=== PATIENT | female | born 1975 | race Caucasian/White ===

== ENCOUNTER 2020-11-05 11:41 | Outpatient (REF) | payer BC, SELFPAY ==
--- NOTE | ~2020-11-05 | XR_ITS ---
EXAMINATION: XR KNEE, LEFT CLINICAL INFORMATION: Pain and swelling of the left knee COMPARISON: None TECHNIQUE: Four views of the left knee. FINDINGS: No fracture or subluxation. Compartmental joint spaces are maintained. No definite joint effusion. Diffuse soft tissue swelling. XR/XR knee LT 3V IMPRESSION: Soft tissue swelling. No osseous abnormality.
== END 2020-11-05 11:42 | disposition home or self-care (01) ==
LOC: HO.XRAY 11:41
PROVIDERS: PCP Student in an Organized Health Care Education/Training Program; Visit Provider Student in an Organized Health Care Education/Training Program
DX: M25.562 Pain in left knee (principal); M25.462 Effusion, left knee
CPT/HCPCS: 73562

== ENCOUNTER → 2022-10-24 08:28 | Outpatient (BNVA) | payer BC, SELFPAY | PROVIDERS: PCP Family Medicine; Visit Provider Physician Assistant Surgical | DX: Z13.89 Encounter for screening for other disorder (principal) ==

== ENCOUNTER → 2022-10-31 08:10 | Outpatient (BNVA) | payer BC, SELFPAY | PROVIDERS: PCP Family Medicine; Visit Provider Surgery | DX: Z13.89 Encounter for screening for other disorder (principal) ==

== ENCOUNTER 2022-11-04 08:42 | Outpatient (REF) | payer OTHER, SELFPAY ==
--- NOTE | ~2022-11-04 | XR_ITS ---
EXAMINATION: XR CHEST CLINICAL INFORMATION: E66.01. Bariatric service evaluation. COMPARISON: None available. TECHNIQUE: 2 views of the chest were obtained. FINDINGS: Lungs clear. No hyperinflation, infiltrate, or effusion. The costophrenic sulci are well-defined. Heart size normal. The hilar and mediastinal contours are unremarkable. No acute bony abnormality. XR/XR chest 2V IMPRESSION: Unremarkable examination.
--- NOTE | 2022-11-04 08:59 | ECG_ITS ---
Test Reason : E66.01 Blood Pressure : / mmHG Vent. Rate : 067 BPM Atrial Rate : 067 BPM P-R Int : 156 ms QRS Dur : 078 ms QT Int : 380 ms P-R-T Axes : 099 022 043 degrees QTc Int : 401 ms Normal sinus rhythm Normal ECG No previous ECGs available Referred By: Mynor Howard Electronically Signed By:Erick Hernandez
[2022-11-04 09:17] LABS: MANUAL DIFF FLAG NO
[2022-11-04 09:31] LABS: Basophils Percent Auto 0.4 % (0-2); Eosinophils Absolute Auto 0.1 X10*3/uL (0.0-0.4); Hematocrit 40.8 % (37.0-47.0); Hemoglobin 13.5 g/dl (12.0-16.0); Imm Gran Abs Auto 0.02 X10*3/uL (0.00-0.03); Imm Gran Pct Auto 0.3 % (0.0-0.4); Lymphocytes Absolute Auto 2.6 X10*3/uL (1.2-4.9); Lymphocytes Percent Auto 36.9 % (20-40); Mean Corpuscular HGB Conc 33.1 g/dl (31.0-35.0); Mean Corpuscular Hemoglobin 27.6 pg (27.0-33.0); Mean Corpuscular Volume 83.3 fL (80.0-98.0); Mean Platelet Volume 10.9 fL (9.4-12.3); Monocytes Absolute Auto 0.4 X10*3/uL (0.1-1.2); Monocytes Percent Auto 6.3 % (2-11); Neutrophils Absolute Auto 3.8 x10*3/uL (2.0-8.3); Neutrophils Percent Auto 54.1 % (45-73); Platelet Count 230 X10*3/uL (160-400); Red Cell Distribution Width 14.2 % (11.0-16.0)
[2022-11-04 09:46] LABS: Estimated Average Glucose 117 mg/dL; Hemoglobin A1c % 5.7 %
[2022-11-04 09:59] LABS: Alanine Aminotransferase 22 U/L (0-31); Albumin Level 4.3 g/dL (3.5-5.0); Alkaline Phosphatase 62 U/L (39-117); Anion Gap 12 (12-20); Aspartate Amino Transferase 16 U/L (5-31); Bilirubin Total 1.3 mg/dL (0.0-1.0); Blood Urea Nitrogen 17 mg/dL (9-16); C Reactive Protein 0.26 mg/dL (< or = 0.50); Calcium 9.1 mg/dL (8.4-10.2); Carbon Dioxide 24 mmol/L (22-29); Chloride 109 mmol/L (96-108); Cholesterol 211 mg/dL; Estimated Glomerular Filt Rate > 60; Glucose Random 99 mg/dL (60-115); HDL Cholesterol 48 mg/dL; Iron 120 mcg/dL (30-160); LDL Cholesterol Calculated 138 mg/dl; Percent Iron Saturation 29 % (15-50); Potassium 4.4 mmol/L (3.3-5.1); Sodium 141 mmol/L (135-145); Total Iron Binding Capacity 416 mcg/dL (228-428); Total Protein 6.6 g/dL (6.5-8.0); Triglycerides 129 mg/dL; Unsaturated Iron Binding 296 ug/dL
[2022-11-04 10:28] LABS: Ferritin 31 ng/mL (10-250); Folate 14.3 ng/mL (> or = 4.0); Insulin 8 uU/mL (2-29); TSH reflex Free T4 1.08 uIU/mL (0.32-4.0); Vitamin B12 372 pg/mL (200-900); Vitamin D 25-OH Total 21.2 ng/mL (>30)
[2022-11-05 11:06] LABS: H Pylori Breath Test Positive (Negative)
[2022-11-07 21:49] LABS: Calcium (PTHI) 9.2 mg/dL (8.6-10.2); PTHI 46 pg/mL (16-77)
[2022-11-08 15:28] LABS: Zinc 71 mcg/dL (60-130)
[2022-11-10 23:44] LABS: Vitamin A 62 mcg/dL (38-98)
[2022-11-14 06:38] LABS: Vitamin B1 9 nmol/L (8-30)
== END 2022-11-04 08:43 | disposition home or self-care (01) ==
LOC: HO.LAB 08:42
PROVIDERS: PCP Family Medicine; Visit Provider Surgery
DX: E66.01 Morbid (severe) obesity due to excess calories (principal); E78.5 Hyperlipidemia, unspecified; Z20.2 Contact with and (suspected) exposure to infections with a predominantly sexual mode of transmission
CPT/HCPCS: 36415; 71046; 80053; 80061; 82306; 82607; 82728; 82746; 83013; 83036; 83525; 83540; 83970; 84425; 84443; 84590; 84630; 85025; 86140; 93005

== ENCOUNTER → 2022-11-21 09:00 | Outpatient (BNVA) | payer OTHER, SELFPAY | PROVIDERS: PCP Family Medicine; Visit Provider Counselor Mental Health | DX: E66.01 Morbid (severe) obesity due to excess calories (principal); Z71.3 Dietary counseling and surveillance | CPT/HCPCS: 97802 ==

== ENCOUNTER → 2022-11-28 08:12 | Outpatient (BNVA) | payer OTHER, SELFPAY | PROVIDERS: PCP Family Medicine; Visit Provider Surgery | DX: Z13.89 Encounter for screening for other disorder (principal) ==

== ENCOUNTER 2022-12-05 08:02 | Outpatient (REF) | payer OTHER, SELFPAY ==
[2022-12-10 14:11] LABS: H Pylori Breath Test Negative (Negative)
== END 2022-12-05 08:03 | disposition home or self-care (01) ==
LOC: HO.LNP 08:02
PROVIDERS: PCP Family Medicine; Visit Provider Physician Assistant Surgical
DX: Z01.818 Encounter for other preprocedural examination (principal)
CPT/HCPCS: 83013

== ENCOUNTER → 2022-12-09 14:08 | Outpatient (BNVA) | payer OTHER, SELFPAY | PROVIDERS: PCP Family Medicine; Visit Provider Surgery ==

== ENCOUNTER 2022-12-14 08:41 | Outpatient (REF) | payer OTHER, SELFPAY ==
--- NOTE | ~2022-12-14 | US_ITS ---
EXAMINATION: US COMPLETE ABDOMEN WITH LIVER ELASTOGRAPHY CLINICAL INFORMATION: Obesity COMPARISON: None available. TECHNIQUE: Real-time imaging of the abdominal viscera. Noninvasive ultrasound liver fibrosis assessment is performed using Irina ElastPQ point quantification shear wave elastography (2D-SWE) with a C5-2 MHz transducer. Multiple elastography samples are obtained. FINDINGS: PANCREAS: Normal. ABDOMINAL AORTA: The proximal, middle, and distal aortic segments are normal in caliber. INFERIOR VENA CAVA: Visualized portions are normal. LIVER: Normal. The liver demonstrates normal size, contour and echogenicity. No focal lesion or intrahepatic biliary duct dilatation. The right lobe measures 14 cm in length. The left lobe measures 10 cm in length. Portal flow is normal Shear wave liver elastography median stiffness is 1.5 m/s (reference: normal median stiffness is 1.3 m/s or less). IQR/median stiffness to assess sampling precision is 0.09 (reference: good quality data set is IQR/median stiffness of 0.15 or less). GALLBLADDER: Normal. The gallbladder is physiologically distended without evidence of stones, sludge, polyps, wall thickening or pericholecystic fluid. COMMON BILE DUCT: Normal in caliber measuring 0.3 cm in diameter. RIGHT KIDNEY: 7 x 5 x 5 mm echogenic density in the cortex of the mid to lower pole. 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 No hydronephrosis. No renal calculi. The kidney measures 11.6 cm in maximum dimension. LEFT KIDNEY: Normal. No hydronephrosis. No renal calculi or focal parenchymal lesions. The kidney measures 11.2 cm in maximum dimension. SPLEEN: Normal. The spleen measures 10 cm in maximum dimension. FREE FLUID: None. US/US abdomen comp w elastography IMPRESSION: 1. Impression: Normal-appearing liver. 6 mm echogenic lesion in the lower pole the right kidney. 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 Confirmation with CT or MRI of the kidneys should be considered. 2. Liver elastography: Adequate liver sampling. In the absence of other known clinical signs, rules out compensated advanced chronic liver disease. REFERENCE: Society of Radiologists in Ultrasound Liver Stiffness Thresholds (2020): LIVER STIFFNESS THRESHOLDS: *Liver Stiffness equal or less than 1.3 m/s: High probability of being normal. *Liver Stiffness less than 1.7 m/s: In the absence of other known clinical signs, rules out compensated advanced chronic liver disease. *Liver Stiffness 1.7-2.1 m/s: Suggestive of compensated advanced chronic liver disease but need further test for confirmation. *Liver Stiffness over 2.1 m/s: Rules in compensated advanced chronic liver disease. *Liver Stiffness over 2.4 m/s: Suggestive of clinically significant portal hypertension. QUALITY OF DATA SET: *IQR/Median value equal or less than 0.15 implies a quality data set. *IQR/Median value over 0.15 implies a poor quality data set. SIGNIFICANT CHANGE FROM PRIOR EXAM: Significant change if liver stiffness measurement is 10% or greater from prior exam. OTHER CONSIDERATIONS: The stage of liver fibrosis may be overestimated in the setting of acute hepatitis, liver inflammation, elevated liver function tests, hepatic vascular congestion, obstructive cholestasis, non-fasting state, and infiltrative diseases such as amyloidosis and lymphoma. In some patients with NAFLD, the liver stiffness thresholds for compensated advanced chronic liver disease may be lower. In causes other than viral hepatitis and NAFLD, liver stiffness thresholds are not well established.
--- NOTE | ~2022-12-14 | FL_ITS ---
EXAMINATION: XR FLUOROSCOPY UPPER GI WITH AIR CLINICAL INFORMATION: Morbid obesity COMPARISON: None available. TECHNIQUE: Air-contrast upper GI examination FINDINGS: There is normal elevation of the soft palate while saying 'candy'. There is normal apposition of the focal cords while saying 'E'. Patient swallowed thin and thick barium and half-inch diameter barium tablet without difficulty. There is no evidence of nasopharyngeal reflux or tracheal aspiration. There is normal esophageal motility. No persistent stricture or mucosal abnormality within the esophagus is seen. No hiatal hernia. No gastroesophageal reflux including with water siphon test. The stomach demonstrates normal distensibility without abnormal mass or ulceration. There was no delay in gastric emptying. The duodenal bulb and sweep appeared unremarkable. FLUOROSCOPY TIME: 1.5 minutes DOSE AREA PRODUCT: 13.829 Gy-cm2 (feliciano-centimeter squared) FL/FL upper GI w air IMPRESSION: Normal air-contrast upper GI examination.
== END 2022-12-14 08:42 | disposition home or self-care (01) ==
LOC: HO.US 08:41
PROVIDERS: PCP Family Medicine; Visit Provider Surgery
DX: Z01.818 Encounter for other preprocedural examination (principal); E66.01 Morbid (severe) obesity due to excess calories; K21.9 Gastro-esophageal reflux disease without esophagitis; E78.5 Hyperlipidemia, unspecified
CPT/HCPCS: 74246; 76705; 76981

== ENCOUNTER 2022-12-16 09:40 | Inpatient (IN) | payer OTHER, SELFPAY ==
[2022-12-10 08:58] LABS: MANUAL DIFF FLAG NO
[2022-12-10 10:33] LABS: Basophils Percent Auto 0.7 % (0-2); Eosinophils Absolute Auto 0.1 X10*3/uL (0.0-0.4); Hematocrit 39.3 % (37.0-47.0); Hemoglobin 12.7 g/dl (12.0-16.0); Imm Gran Abs Auto 0.02 X10*3/uL (0.00-0.03); Imm Gran Pct Auto 0.3 % (0.0-0.4); Lymphocytes Absolute Auto 2.5 X10*3/uL (1.2-4.9); Lymphocytes Percent Auto 41.9 % (20-40); Mean Corpuscular HGB Conc 32.3 g/dl (31.0-35.0); Mean Corpuscular Hemoglobin 27.5 pg (27.0-33.0); Mean Corpuscular Volume 85.2 fL (80.0-98.0); Mean Platelet Volume 11.8 fL (9.4-12.3); Monocytes Absolute Auto 0.4 X10*3/uL (0.1-1.2); Monocytes Percent Auto 6.8 % (2-11); Neutrophils Absolute Auto 2.9 x10*3/uL (2.0-8.3); Neutrophils Percent Auto 48.3 % (45-73); Platelet Count 231 X10*3/uL (160-400); Red Blood Count 4.61 X10*6/uL (4.20-5.50); Red Cell Distribution Width 14.2 % (11.0-16.0); White Blood Count 5.9 X10*3/uL (4.8-10.8)
[2022-12-10 10:38] LABS: Prothrombin Time 11.1 SEC (10.0-13.1)
[2022-12-10 10:39] LABS: Estimated Average Glucose 111 mg/dL; Hemoglobin A1c % 5.5 %
[2022-12-10 10:40] LABS: Partial Thromboplastin Time 32.8 SEC (26.0-36.4)
[2022-12-10 11:10] LABS: Alanine Aminotransferase 21 U/L (0-31); Albumin Level 4.1 g/dL (3.5-5.0); Alkaline Phosphatase 62 U/L (39-117); Anion Gap 12 (12-20); Aspartate Amino Transferase 18 U/L (5-31); Bilirubin Total 0.9 mg/dL (0.0-1.0); Blood Urea Nitrogen 15 mg/dL (9-16); C Reactive Protein 0.24 mg/dL (< or = 0.50); Calcium 9.1 mg/dL (8.4-10.2); Carbon Dioxide 22 mmol/L (22-29); Chloride 113 mmol/L (96-108); Cholesterol 141 mg/dL; Estimated Glomerular Filt Rate > 60; Glucose Random 94 mg/dL (60-115); HDL Cholesterol 35 mg/dL; LDL Cholesterol Calculated 92 mg/dl; Sodium 143 mmol/L (135-145); Total Protein 6.2 g/dL (6.5-8.0); Triglycerides 70 mg/dL
[2022-12-10 11:28] LABS: Insulin 6 uU/mL (2-29); TSH reflex Free T4 0.81 uIU/mL (0.32-4.0)
--- NOTE | 2022-12-10 13:09 | MHC.SHP ---
Pre-Procedural Eval Section A Date of Service: 12/10/22 The patient is an INPATIENT: Yes The History & Physical has been completed within 30 days and I have reviewed it.: Yes Section B Chief Complaint: obesity Relevant Family History (Specify if Yes): No Relevant Social History: None Present Medications: None Medical History: No relevant PMH History of Previous Operations: No relevant previous surgery Allergies: Allergies Allergy/AdvReac Type Severity Reaction Status Date / Time No Known Allergies Allergy Verified 12/05/22 08:24 Review of Systems Sugical H&P ROS: Negative: Constitution, Cardiovascular, Respiratory, Neurological, Psychiatric, Hem-Onc, Allergic/Immunologic, Gastrointestinal, Genitourinary, Musculoskeletal, Integumentary, Endocrine and Eyes/Ears/Nose/Throat Exam Surgical H&P Exam: Normal: HEENT, Normal: Heart, Normal: Lungs, Normal: Extremities, Normal: Abdomen, Normal: Skin and Normal: Neurological Plan Diagnosis/Plan: Unchanged I have reviewed the history and physical and performed a pertinent physical examination on my patient. No changes have occurred unless specified. Time Spent With Patient Time: Total time managing care of this patient today ____ minutes.
[2022-12-12 09:29] VITALS: BMI 38.6
--- NOTE | 2022-12-15 09:27 | HO.ANESPROP2 ---
Documented by User: Chloe Ang NP 12/15/22 09:29 HPI - Anesthesia Eval Consult details Narrative: 47yo F for Gastrectomy Sleeve,EGD,poss diaphragmatic hernia,poss ventral hernia,poss open, PMFSH Active Problems Active Problems: All Active Problems (Updated 12/12/22 @ 09:35 by Maria C Molina RN) Vitamin D deficiency (Acute) Vitamin B12 deficiency (Acute) H. pylori infection (Acute) Obesity (Acute) BMI 39.0-39.9,adult (Acute) Back pain (Acute) Hyperlipidemia (Acute) Morbid obesity (Acute) Past Medical History Medical History Back pain Depression GERD (gastroesophageal reflux disease) History of positive PPD Hyperlipidemia Morbid obesity PTSD (post-traumatic stress disorder) Family History Family History Sister Hypertension Obesity Daughter No problems noted. Son No problems noted. Surgical History Surgical History History of surgery on lower extremity Hx of section Hx of oral surgery Social History 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 primary eye care professional to a significant other at home: Yes (minor children) Do you presently have visiting nurse or other home services: No Alcohol intake: current Alcohol intake frequency: does not drink Patient Tobacco Use Status: Former Tobacco user Quit Date: 2011 Tobacco use type: Cigarette Use of substances other than those prescribed or required for medical reasons: Yes Substance Use Type Other:: occasional edibles-advised to refrain use pre-op Have you been hit, kicked, punched, or otherwise hurt by someone within the past year? If so, by whom?: No Are you DNR?: No Advance Directives: No Advance Directives Information Provided: Yes (brochure mailed) Advance Directives on File: No Recently lost weight without trying: No Eating poorly because of decreased appetite: No Nutrition Risks: No Nutritional Risk Patient : No FDLMP: 12/05/22 : No Poor oral hygiene: No Meds Allergies Allergy/AdvReac Type Severity Reaction Status Date / Time No Known Allergies Allergy Verified 12/16/22 09:49 Home Medications Medication Instructions Recorded Confirmed Last Taken Type atorvastatin 20 mg tablet 20 mg PO DAILY 10/24/22 12/12/22 Unknown History Exam Exam Date and Time: December 15, 2022 0962 Height,Weight and Vital Signs: Height 5 ft 5 in Weight 105.233 kg Pertinent Lab Results Pertinent Lab Results: Laboratory Tests 12/10/22 12/10/22 12/10/22 08:49 08:56 08:56 WBC 5.9 RBC 4.61 Hgb 12.7 Hct 39.3 MCV 85.2 MCH 27.5 MCHC 32.3 RDW 14.2 Plt Count 231 MPV 11.8 Immature Gran % (Auto) 0.3 Neut % (Auto) 48.3 Lymph % (Auto) 41.9 H Hutchinson % (Auto) 6.8 Eos % (Auto) 2.0 Baso % (Auto) 0.7 Lymph # (Auto) 2.5 Hutchinson # (Auto) 0.4 Eos # (Auto) 0.1 Baso # (Auto) 0.0 Abs Immat Gran (auto) 0.02 Absolute Neuts (auto) 2.9 Absolute Nucleated RBC 0.000 Nucleated RBC % (auto) 0.0 PT 11.1 INR 1.0 APTT 32.8 Sodium Potassium Chloride Carbon Dioxide Anion Gap BUN Creatinine Estim Creat Clear Calc Estimated GFR Random Glucose Estimat Average Glucose Hemoglobin A1c % Insulin Level Calcium Total Bilirubin AST ALT Alkaline Phosphatase C-Reactive Protein Total Protein Albumin Triglycerides Cholesterol LDL Cholesterol, Calc HDL Cholesterol TSH Blood Type O Positive Antibody Screen NEGATIVE 12/10/22 12/10/22 08:56 08:56 WBC RBC Hgb Hct MCV MCH MCHC RDW Plt Count MPV Immature Gran % (Auto) Neut % (Auto) Lymph % (Auto) Hutchinson % (Auto) Eos % (Auto) Baso % (Auto) Lymph # (Auto) Hutchinson # (Auto) Eos # (Auto) Baso # (Auto) Abs Immat Gran (auto) Absolute Neuts (auto) Absolute Nucleated RBC Nucleated RBC % (auto) PT INR APTT Sodium 143 Potassium 4.0 Chloride 113 H Carbon Dioxide 22 Anion Gap 12 BUN 15 Creatinine 0.75 Estim Creat Clear Calc TNP Estimated GFR > 60 Random Glucose 94 Estimat Average Glucose 111 Hemoglobin A1c % 5.5 Insulin Level 6 Calcium 9.1 Total Bilirubin 0.9 AST 18 ALT 21 Alkaline Phosphatase 62 C-Reactive Protein 0.24 Total Protein 6.2 L Albumin 4.1 Triglycerides 70 Cholesterol 141 LDL Cholesterol, Calc 92 HDL Cholesterol 35 TSH 0.81 Blood Type Antibody Screen Narrative Narrative: EKG 10/2022 Vent. Rate : 067 BPM ? ? Atrial Rate : 067 BPM ?? P-R Int : 156 ms? QRS Dur : 078 ms ? ? QT Int : 380 ms ? ? ? P-R-T Axes : 099 022 043 degrees ?? QTc Int : 401 ms ? Normal sinus rhythm Normal ECG No previous ECGs available Assessment and Plan Assessment Anesthesia Assessment: Chart Reviewed Documented by User: Theresa Michael MD 12/16/22 12:13 PMFSH Past Medical History Medical History Back pain Depression GERD (gastroesophageal reflux disease) History of positive PPD Hyperlipidemia Morbid obesity PTSD (post-traumatic stress disorder) Family History Family History Sister Hypertension Obesity Daughter No problems noted. Son No problems noted. Surgical History Surgical History History of surgery on lower extremity Hx of section Hx of oral surgery History of Problems with Anesthesia: No Social History 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 primary eye care professional to a significant other at home: Yes (minor children) Do you presently have visiting nurse or other home services: No Alcohol intake: current Alcohol intake frequency: does not drink Patient Tobacco Use Status: Former Tobacco user Quit Date: 2011 Tobacco use type: Cigarette Use of substances other than those prescribed or required for medical reasons: Yes Substance Use Type Other:: occasional edibles-advised to refrain use pre-op Have you been hit, kicked, punched, or otherwise hurt by someone within the past year? If so, by whom?: No Are you DNR?: No Advance Directives: No Advance Directives Information Provided: Yes (brochure mailed) Advance Directives on File: No Recently lost weight without trying: No Eating poorly because of decreased appetite: No Nutrition Risks: No Nutritional Risk Patient : No FDLMP: 12/05/22 : No Poor oral hygiene: No Meds Allergies Allergy/AdvReac Type Severity Reaction Status Date / Time No Known Allergies Allergy Verified 12/16/22 09:49 Home Medications Medication Instructions Recorded Confirmed Last Taken Type atorvastatin 20 mg tablet 20 mg PO DAILY 10/24/22 12/12/22 Unknown History Exam Airway Mallampati Class: II TM Dist: >3cm Neck ROM: Full Loose/Missing/Broken Teeth: No Heart: RRR Lungs: CTA Assessment and Plan Assessment Anesthesia Assessment: Anesthesia Plan Discussed Final Anesthetic Review History of Problems with Anesthesia: No NPO: Yes ASA Class: II Final Preanesthetic Review: Meds/Allgs Chart Reviewed, Consent Obtained/Reviewed and Anes Risks/Benef Reviewed Patient Risk: Low Procedure Risk: Intermediate Anesthetic Plan Anesthetic Plan: GA Disposition: Standard PACU
[2022-12-15 13:40] LABS: COVID-19 Test Negative (Negative); IDNOW Serial# BCCEAD1C
[2022-12-16] VITALS (10 sets, daily range): BP systolic 102–136; BP diastolic 62–89; PULSE 59–86; RESP 15–18; TEMP 35.8–37.2; O2SAT 96–100
[2022-12-16] MEDS: Lactated Ringers 1,000 ML 999 ML IV (10:28)
[2022-12-16] MEDS: Aprepitant 32 MG/4.4 ML VIAL IVPUSH (10:52)
[2022-12-16 11:03] LABS: UPreg QC Valid YES; Urine Pregnancy NEGATIVE (NEGATIVE)
--- NOTE | 2022-12-16 11:21 | P.BOP_ITS ---
Brief Operative Note Date of Service: 12/16/22 Pre-op diagnosis: Severe obesity with comorbidities (see below) Post-op diagnosis: same Procedure: INITIAL PATIENT BMI ON PRESENTATION AT OUR OFFICE: 40.7 kg/m2 LAST BMI BEFORE SURGERY: 39.2 kg/m2 COMORBIDITIES: hyperlipidemia, back pain, depression, PTSD, GERD, liver fibrosis ?The patient presented to the Weight Management Program with significant obesity that was negatively impacting the patient's comorbidities as listed above.? The program is a phased program with a special focus on preoperative medical weight management to promote substantial weight loss and prepare the patients for the second phase of the program: bariatric surgery. The patient participated in an intensive weekly lifestyle ?intervention and exercise program during which the patient ?has lost between the initial office visit and the last preoperative visit 21.2lbs, or 8.66% of initial actual body weight. It was deemed appropriate for the patient to now have bariatric surgery. In light of the current Covid-19 pandemic and the well documented strong association of obesity and increased risk of worse outcomes if infected with Covid-19 (REFERENCES: https://pubmed.ncbi.nlm.nih.gov/47916283/ ,? https://pubmed.ncbi.nlm.nih.gov/74648039/ ), any delay in undergoing bariatric surgery may lead to the patient's worsening health condition and increased?risk of more severe Covid-19 disease if infected. In addition a recent?study from [facility] published in [employer] on 07/26/2021 ([email or web address]) found that, among patients with obesity, substantial weight loss achieved with surgery was associated with improved outcomes of COVID-19 infection. The findings suggest that obesity can be a modifiable risk factor for the severity of COVID-19 infection. In addition, the patient met the BMI-criteria for bariatric surgery based on the BMI on initial presentation. The patient should not be penalized for achieving such weight loss because ?it is not sustainable long-term without surgical intervention and it was achieved in preparation for bariatric surgery ?under my direction and based on my published research ([email or web address]).[email or web address] and? https://www.soard.org/article/[email or web address](59)67226-X/pdf ) ?that a 10% preoperative weight loss improves long-term weight loss after surgery and reduces perioperative complications.? Insurance carriers such as [facility] have endorsed my recommendations ?and have included in their policies criteria to include a 10% preoperative weight loss requirement. PROCEDURE: Esophago-gastroscopy, laparoscopic sleeve gastrectomy and laparoscopic gastropexy INDICATIONS: This is a 47 year-old female who was electively scheduled for laparoscopic, possibly open sleeve gastrectomy. The risks and complications of the procedure were discussed with the patient in advance, particularly the possibility of ; pulmonary embolism; staple line leak; bleeding; GERD; cardiac, pulmonary, or renal complications; as well as long-term problems such as insufficient weight loss, vitamin deficiency, strictures, or ulcers. The patient understood all the risks, and was in agreement to proceed with surgery. DESCRIPTION OF PROCEDURE: After informed consent was obtained from the patient, the patient was given preoperative antibiotics, and was transferred to the operating room. After successful induction of general anesthesia, pneumatic compression devices were placed on both lower extremities. An upper endoscopy was performed next. The oropharynx and esophagus appeared to be within normal limits. There was no diaphragmatic hernia present consistent with the findings of the preoperative upper GI. The stomach was entered. Then after all fluid and air were suctioned and the stomach was fully decompressed, the scope was withdrawn and secured in the mid esophagus. The patient was then prepped and draped in the usual sterile manner, and abdominal access was established at the right upper quadrant with the Walt technique. A 12 mm blunt port was inserted, and the abdomen was insufflated with CO2 to a pressure of 15 mmHg. Under direct visualization, additional ports were placed, specifically two 5 mm Versi-step ports to the left upper quadrant, and a 5 mm Versi-Step port to the right upper quadrant. 1% lidocaine plain was used to infiltrate all port sites as well as all fascia defects. Following that, the patient was placed in a steep reverse Trendelenburg position. An additional 5 mm port was placed to the right flank for the Mediflex retractor that was used to retract the left lobe of the liver. The gastro-esophageal fat pad was opened with the ultrasonic device (Intellicyt) and the anterior esophagus and hiatus were exposed. The angle of His was opened with the ultrasonic device the fundus of the stomach from any diaphragmatic and splenic attachments. I then opened the gastrocolic ligament between the transverse colon and the greater curvature of the stomach with the ultrasonic device to enter the lesser sac and facilitate the ligation of the short gastric vessels. I started at a mid-point along the greater curvature and using the Thunderbeat, all short gastric vessels were divided all the way to the angle of His until the left carlos a was completely dissected at its entirety. I then divided the gastro-colic ligament distally to a distance of about 3-4 cm proximal to the pylorus. The stomach was then divided transversely with three Endo ANAYA-45 purple, and three ANAYA-60 articulating purple loads using the moka5 stapler and loads. Every effort was made that the gastric sleeve had a tubular shape and an even caliber throughout. Once the sleeve resection was completed, the staple line of the gastric sleeve was reinforced with Hemoclips. The resected stomach was retrieved without difficulty from the Walt port. A gastropexy was then performed in order to prevent postoperative GERD and partial gastric volvulus. Several interrupted 2.0 Surgidac sutures were placed between the sleeve's staple line and the previously divided greater omentum and gastro-colic ligament using the Endo-Stitch device. ?An upper endoscopy was performed. There was no narrowing at the GE junction. The scope was easily advanced all the way to the pylorus which was clearly visualized. There was no narrowing anywhere and the sleeve's caliber was even throughout. The sleeve's staple line was inspected and there was no evidence of ischemia, bleeding or dehiscence. At that point the gastroscope was withdrawn from the patient?s mouth while we were decompressing the bowel and the stomach from any remaining air. I looked into the lesser sac to see how the sleeve was situating and it was situating well. There was no bleeding from the staple line, spleen, or short gastric vessels. The Mediflex retractor was removed, and the undersurface of the liver was inspected and there was no bleeding. The patient was placed in supine position. I closed the fascial defect of the 12 mm port site with a figure of eight #1 Polysorb suture. Then 30cc Ropivacaine plain with 10 mg of Dexamethasone were used to infiltrate the fascial closure as well as all skin incisions. A total of 7ml Zynrelef was applied in the Walt wound. At this point, the abdomen was deflated, all ports were removed under direct vision, and no bleeding was noted from any of the port sites. The skin incisions were irrigated with saline and were closed with 4-0 absorbable monofilament sutures. Steri-Strips and OpSites were used to cover all incisions. The patient was extubated and was transferred in stable condition to the recovery room for further care. I was present and performed all arvizu parts of the procedure. Ms. Boo was the elder assistant. There were no residents to assist with this case. Marko Howard MD, PhD, FACS Surgeon: Mynor Howard MD Anesthesia: GETA, local and other (TAP block and 7ml Zynrelef) Was an Anthropological Linguist used for this Procedure?: Yes Anthropological Linguist: Margarita Boo Estimated blood loss (mL): 10 IV fluids (mL): 2,200 Urine output (mL): 0 (No Jones to record output) Pathology: other (Stomach) Condition: stable Disposition: PACU
--- NOTE | 2022-12-16 11:24 | PM.PNGS ---
Subjective Subjective Date of Service: 12/16/22 Interval history: Feels well. Mild incisional pain. She is tolerating phase 1 bariatric diet Physical Exam Vital Signs: Vital Signs: Last Vital Signs Temp 97.9 F 12/16/22 09:57 Pulse 75 12/16/22 09:57 Resp 15 12/16/22 09:57 BP 129/70 12/16/22 09:57 Pulse Ox 96 12/16/22 09:57 O2 Del Method Room Air 12/16/22 09:57 BMI result Body Mass Index 38.6 Objective Data Active Medications Lactated Ringer's (Lr) 1,000 mls @ 100 mls/hr IVCONT .Q10H CRISTINA Lactated Ringer's (Lr) 1,000 mls @ 999 mls/hr IV .Q1H1M CRISTINA Stop: 12/16/22 11:45 Last Admin: 12/16/22 10:28 Dose: 999 mls/hr Documented By: LINDA Labs 12/10/22 08:56 12/10/22 08:56 Labs: Laboratory Results - last 24 hr 12/15/22 12/16/22 13:10 09:50 Urine Test NEGATIVE COVID-19 (PATSY) Negative COVID-19 Clin Com See Note Procedures Date of Service Date of Service: 12/16/22 Progress Note: A&P Assessment and plan (1) Obesity: Status: Acute Assessment and Plan: s/p laparoscopic sleeve gastrectomy, and gastropexy Doing well Will check am labs and if OK the patient will be discharged home (2) BMI 39.0-39.9,adult: Status: Acute (3) Hyperlipidemia: Status: Acute (4) Back pain: Status: Acute (5) Depression: Status: Acute (6) PTSD (post-traumatic stress disorder): Status: Acute (7) Liver fibrosis: Status: Acute (8) GERD (gastroesophageal reflux disease): Status: Acute (9) S/P laparoscopic sleeve gastrectomy: Status: Acute Time Spent With Patient Time: Total time managing care of this patient today ____ minutes. Quality Stroke Does the patient have a stroke diagnosis?: No VTE Prior VTE?: No VTE Risk Level:: Surgical - moderate VTE Device Contraindication: N/A - Device Ordered VTE Drug Contraindication: Treatment Not Indicated
--- NOTE | 2022-12-16 11:26 | PM.DS ---
DS: Providers Provider Date of Service: 12/17/22 Date of admission: 12/16/22 09:40 Primary care physician: Kathryn Mckinney MD DS: Diagnosis Discharge Diagnosis (1) Obesity: Status: Inactive (2) BMI 39.0-39.9,adult: Status: Inactive (3) Hyperlipidemia: Status: Acute (4) Back pain: Status: Inactive (5) Depression: Status: Acute (6) PTSD (post-traumatic stress disorder): Status: Acute (7) Liver fibrosis: Status: Acute (8) GERD (gastroesophageal reflux disease): Status: Acute DS: Summary Hospital Course Hospital Course: ADMITTING DIAGNOSIS: morbid obesity, hyperlipidemia DISCHARGE DIAGNOSIS: same, s/p laparoscopic sleeve gastrectomy PAST SURGICAL HISTORY: section PROCEDURE: upper endoscopy, laparoscopic sleeve gastrectomy DISCHARGE SUMMARY: History of Present Illness: The patient is a 47 year-old woman with a BMI of 38.6 kg/m2 and associated co-morbidities as described above. The patient had extensive work-up, lost 9.4 lbs preoperatively and was electively scheduled for laparoscopic, possible open sleeve gastrectomy and gastropexy. Risks and complications of the surgery were discussed with the patient in advance, particularly the possibility of , pulmonary embolism, anastomotic leak, bleeding, bowel injury, GERD, cardiac, renal or pulmonary complications. The patient understood all the risks and was in agreement with the surgical plan. Hospital Course: The patient underwent an uneventful laparoscopic sleeve gastrectomy with gastropexy on the day of admission. Postoperatively, the patient was transferred to the surgical floor. The patient received IV Acetaminophen and IV dilaudid for pain control. Patient was started on bariatric phase 1 diet POD #0. On postoperative day one, the patient was feeling well without nausea, vomiting, fevers, or tachycardia. The patient had some mild incisional pain and the abdomen was soft. On the morning of postoperative day one, the patient was continued on 1 ounce of water or ice every half hour. During the day, the patient did fairly well, having some incisional pain, but able to ambulate adequately and to tolerate liquids well. Since the patient is doing well, we decided that the patient was ready to be discharged. The patient was given instructions to follow-up with me next week and to call my office for any fever over 101, persistent abdominal pain, nausea, vomiting, GERD, symptoms of DVT such as calf tenderness, or leg swelling, or pulmonary embolism such as chest pain or shortness of breath. The patient was also instructed to drink 40-60 ounces of liquids per day using the 1-ounce cups. The patient had been given prescriptions for Tylenol for pain, Zofran prn for nausea, and pantoprazole and carafate previously. The patient was encouraged to ambulate and use the incentive spirometer. The patient was allowed to shower, but no baths, and encouraged to stay active at home. All of these instructions were given to the patient personally. All questions were answered and the patient understood all instructions, the instructions were also given to the patient in print. Time Spent with Patient Time attestation: Total time managing care of this patient today ____ minutes. Discharge coordination time: Less than 30 minutes Quality: Safe Use of Opioids Does Pt have an Active Cancer Diagnosis on the Problem List?: No Quality: Stroke Does the patient have a stroke diagnosis?: No Physical Exam Vital Signs: Vital Signs: Last Vital Signs Temp 97.9 F 12/16/22 09:57 Pulse 75 12/16/22 09:57 Resp 15 12/16/22 09:57 BP 129/70 12/16/22 09:57 Pulse Ox 96 12/16/22 09:57 O2 Del Method Room Air 12/16/22 09:57 BMI result Body Mass Index 38.6 DS: Data Data Completed and Pending Labs on day of discharge: Laboratory Results - last 24 hr 12/15/22 12/16/22 13:10 09:50 Urine Test NEGATIVE COVID-19 (PATSY) Negative COVID-19 Clin Com See Note Discharge Plan Discharge Anticipated Discharge Date/Time: 12/17/22 10:24 Patient Disposition: Home, Self-Care Discharge Diagnosis: s/p sleeve gastrectomy Referrals: Kathryn Mckinney MD [Primary Care Provider] - 1 Week Discharge Medications: Continued atorvastatin 20 mg tablet 20 mg PO DAILY pantoprazole 40 mg tablet,delayed release (DR/EC) 40 mg PO DAILY Qty: 30 2RF sucralfate 100 mg/mL suspension 10 ml PO BID Qty: 400 2RF ondansetron 4 mg tablet,disintegrating 4 mg PO Q12H Qty: 20 0RF Rx Instructions: Only take one every 12 hours as needed if you have nausea Discontinued cholecalciferol (vitamin D3) 125 mcg (5,000 unit) capsule 125 mcg PO DAILY Qty: 30 2RF mecobalamin (vitamin B12) 1,000 mcg tablet,disintegrating 1,000 mcg sublingual DAILY Qty: 30 2RF Rx Instructions: place tablet under tongue and allow to dissolve for at least30 secs before swallowing Discharge Orders: Discharge Order (Routine); Ordered 12/17/22 Ordered By: Katie Eden Activity on Discharge: No heavy lifting Stand Alone Forms: Patient Portal Discharge page Care Plan Goals: weight loss Health Concerns: morbid obeisty Plan of Treatment: No tub baths, sex or returning to work until discussed at first post op appointment. No exercise, alcohol, tobacco or illegal drug use. Continue to use incentive spirometer hourly while awake. Walk in home for 5- 10 minutes every 2 hours during the first week. Continue phase 1 diet today and start phase 2 diet tomorrow morning. Follow all instructions in the bariatric handbook and call with any questions. 1. Please call your doctor or come back to the emergency room should any new symptoms arise. 2. You will receive a courtesy call from [facility] 24-48 hours after discharge. 3. Activity: abstain from alcohol, practice limited stair climbing, no bending, no driving, no exercise, no illicit substances, no lifting, no sex, no tub bath, no work. 4. Diet: continue as discussed with bariatric team.. 5. Dressing Change/Wound Care: Do not change or remove surgical dressings unless they are wet or soiled. 6. Call your doctor if: - Your temperature exceeds 101.5 F - You experience excessive pain or swelling - You have an unexpected reaction to medication - You have excessive bleeding - You experience continued vomiting/nausea - Your incision begins to separate - Your incision shows signs of infection such as increased redness, swelling, excessive pain, heat, or drainage (light blood or clear fluid is normal) 7. General instructions: No lifting greater than 5 lbs for the next 4 weeks[address] driving within 24 hours of taking narcotic pain medications. If you do not move your bowels in the next 2 days, please take milk of magnesia over the counter. Please follow the post op diet and do not advance your diet until you are seen in the office in about 2 weeks. Please walk around your home every hour or two to prevent blood clots from forming in your legs. You do not need to wake from sleeping to walk. Please sleep in a bed or couch to prevent kinking at the hips and knees. 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 You may shower, no hot tubs, baths or swimming pools. Please call the office with any questions or concerns such as increasing abdominal pain, fever, chills, shortness of breath, chest pain, leg pain or swelling, or redness or drainage from your incisions. Do not hesitate to contact the office with any questions at . The patient's medical history has been reviewed and they are considered low risk for post op DVT and therefore DVT prophylaxis is not considered necessary. Travel after surgery was reviewed. The patient has not disclosed any travel plans during the first 30 days after surgery and they have been advised that within the first 30 days after surgery any bus, plane, train or car travel over 2 hours in duration is contraindicated due to the possibility of developing blood clots from immobility. Any travel, needs to include periods of ambulation of 10 minutes in duration every 2 hours. The patient was instructed to discuss any plans for travel during this period with their bariatric surgeon. Assessment: marcos post op sleeve gastrectomy Discharge Date/Time: 12/17/22 11:30
[2022-12-16 14:25] LABS: Hematocrit 38.8 % (37.0-47.0); Hemoglobin 12.6 g/dl (12.0-16.0)
[2022-12-16 14:38] LABS: Anion Gap 20 (12-20); Blood Urea Nitrogen 12 mg/dL (9-16); Carbon Dioxide 19 mmol/L (22-29); Chloride 108 mmol/L (96-108); Creatinine Clr Calc Pharmacy 114.1; Estimated Glomerular Filt Rate > 60; Glucose Random 82 mg/dL (60-115); Potassium 3.7 mmol/L (3.3-5.1); Sodium 143 mmol/L (135-145)
[2022-12-16] MEDS: Lactated Ringers 1,000 ML 100 ML IVCONT (15:29)
[2022-12-16] MEDS: Famotidine/PF 20 MG/2 ML VIAL IVPUSH ×2 (15:58→21:40)
[2022-12-16] MEDS: Acetaminophen 1,000 MG/100 ML PIGGYBACK 400 MG IV (17:40)
[2022-12-16] MEDS: ceFAZolin Sodium/Dextrose,Iso 2 GM/50 ML PIGGYBACK IV (18:08)
[2022-12-16] MEDS: HYDROmorphone HCl 0.5 MG/0.5 ML SYRINGE 0.25 MG IVPUSH (21:39)
--- NOTE | 2022-12-17 01:20 | PC.NURSE ---
patient stacey diet, pain well controlled, ambulating in hallway around 0100. Abd dsg dry and intact with abdominal binder in place.
[2022-12-17] MEDS: Lactated Ringers 1,000 ML 100 ML IVCONT (01:57)
[2022-12-17 03:53] VITALS: BP 98/53; PULSE 63; RESP 16; TEMP 36; O2SAT 93
[2022-12-17] MEDS: Acetaminophen 1,000 MG/100 ML PIGGYBACK 400 MG IV (04:24)
[2022-12-17 06:32] LABS: MANUAL DIFF FLAG NO
[2022-12-17 06:36] LABS: Basophils Percent Auto 0.1 % (0-2); Imm Gran Abs Auto 0.03 X10*3/uL (0.00-0.03); Imm Gran Pct Auto 0.4 % (0.0-0.4); Lymphocytes Absolute Auto 1.2 X10*3/uL (1.2-4.9); Mean Corpuscular HGB Conc 32.4 g/dl (31.0-35.0); Mean Corpuscular Hemoglobin 27.2 pg (27.0-33.0); Mean Corpuscular Volume 83.9 fL (80.0-98.0); Mean Platelet Volume 12.1 fL (9.4-12.3); Monocytes Absolute Auto 0.3 X10*3/uL (0.1-1.2); Monocytes Percent Auto 4.4 % (2-11); Neutrophils Absolute Auto 5.5 x10*3/uL (2.0-8.3); Neutrophils Percent Auto 78.1 % (45-73); Platelet Count 214 X10*3/uL (160-400); Red Blood Count 4.41 X10*6/uL (4.20-5.50); White Blood Count 7.1 X10*3/uL (4.8-10.8)
[2022-12-17 06:56] LABS: Anion Gap 22 (12-20); Blood Urea Nitrogen 11 mg/dL (9-16); Calcium 8.7 mg/dL (8.4-10.2); Carbon Dioxide 14 mmol/L (22-29); Chloride 108 mmol/L (96-108); Creatinine Clr Calc Pharmacy 105.6; Estimated Glomerular Filt Rate > 60; Glucose Random 132 mg/dL (60-115); Potassium 4.4 mmol/L (3.3-5.1); Sodium 140 mmol/L (135-145)
[2022-12-17] MEDS: Famotidine/PF 20 MG/2 ML VIAL IVPUSH (07:50)
[2022-12-17] MEDS: 0.9 % Sodium Chloride Flush 3 ML SYRINGE IVFLUSH (07:50)
[2022-12-17 08:00] VITALS: BP 111/62; PULSE 57; RESP 18; TEMP 36.6; O2SAT 98
--- NOTE | 2022-12-17 09:30 | MHC.CM.PN ---
MD order for Patient home, self care prior to CM interview. CM acknowledge MD order for patient's D/C order to home, self care.
[2022-12-17 11:13] VITALS: BP 115/58; PULSE 64; RESP 18; TEMP 36.8; O2SAT 98
--- NOTE | 2022-12-17 14:47 | HO.POSTANES ---
Post Anesthesia Evaluation Post Anesthesia Evaluation Vital Signs: Vital Signs Temp Pulse Resp BP Pulse Ox O2 Del Method 12/17/22 11:13 98.2 F 64 18 115/58 L 98 Room Air 12/17/22 08:00 97.8 F 57 18 111/62 98 Room Air 12/17/22 03:53 96.8 F 63 16 98/53 L 93 Room Air Anesthesia: General Endotracheal-GETA Mental Status: Awake Pain Control: Satisfactory Nausea/Vomiting: None Hydration: Adequate Anesthesia-Related Issues: No Anes. Related Issues
== END 2022-12-17 11:30 | disposition home or self-care (01) | DRG 403 ==
LOC: HO.SSSA 11:26 → HO.S3 14:03
PROVIDERS: Nurse Practitioner; Physician Assistant; Physician Assistant Surgical; Admitting Provider Surgery; PCP Family Medicine; Visit Provider Surgery
PROC: 0DB64Z3 Excision of Stomach, Percutaneous Endoscopic Approach, Vertical (ICD-10-PCS; CPT 43845; principal; 2022-12-16 11:40)
DX: E66.01 Morbid (severe) obesity due to excess calories (principal); K74.00 Hepatic fibrosis, unspecified; M54.9 Dorsalgia, unspecified; F32.A Depression, unspecified; E78.5 Hyperlipidemia, unspecified; F43.10 Post-traumatic stress disorder, unspecified; K21.9 Gastro-esophageal reflux disease without esophagitis; Z68.39 Body mass index [BMI] 39.0-39.9, adult; Z20.822 Contact with and (suspected) exposure to COVID-19; Z79.899 Other long term (current) drug therapy
CPT/HCPCS: 36415; 80048; 80053; 80061; 81025; 83036; 83525; 84443; 85014; 85018; 85025; 85610; 85730; 86140; 86850; 86900; 86901; 87635; 88304; 88305; 88307; 88342; A4649; C9088; C9145; J0131; J0690; J1100; J1170; J2250; J2370; J2405; J2550; J2795; J3010

== ENCOUNTER → 2023-01-13 09:47 | Outpatient (BNVA) | payer OTHER, SELFPAY | PROVIDERS: PCP Family Medicine; Visit Provider Physician Assistant ==

== ENCOUNTER 2023-02-06 15:24 | Outpatient (AMB) | payer OTHER, SELFPAY ==
--- NOTE | 2023-02-06 14:44 | MHC.OFFVISWM ---
Intake VS Expanded 02/06/23 15:07 Height 5 ft 5 in Weight 204 lb BMI 33.9 Intake Visit Reasons: VIDEO PO LSG 12/16/22 Allergies No Known Allergies Allergy (Verified 01/13/23 09:55) HPI HPI Comments History of Present Illness Details Pt is now 8 weeks s/p LSG. 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 Denies n/v/abd pain or reflux. Is asking to have more food in her meal plan now. Weight is from a few days ago. Meal plan: 9am - 2 scoops 4:1 lactaid 2pm - same shake 20 grams protein water 6pm - 2.5 oz cottage cheese or yogurt over 1 hour Exercise - TBP videos 3 d/week and then bikes 3d/ week. PFSH Medical History Back pain Depression GERD (gastroesophageal reflux disease) History of positive PPD Hyperlipidemia Morbid obesity PTSD (post-traumatic stress disorder) Surgical History History of surgery on lower extremity Hx of section Hx of oral surgery Family History Sister Hypertension Obesity Daughter No problems noted. Son No problems noted. 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 primary senior care provider to a significant other at home: Yes (minor children) Do you presently have visiting nurse or other home services: No Alcohol intake: current Alcohol intake frequency: does not drink Patient Tobacco Use Status: Former Tobacco user Quit Date: 2011 Tobacco use type: Cigarette Assessment & Plan Assessment & Plan (1) S/P laparoscopic sleeve gastrectomy: Code(s): Z98.84 - Bariatric surgery status Plan: Pt is doing very well 8 weeks post op - started yougrt on her own and was eating too much. Will continue with2 shakes and 1 bottle protein water per day. 6 pm- 1 oz of soft , moist chicken or fish Increase TBP to 4d/ week and 45 minutes videos, continue biking as well. Next appt 4 weeks with me. Telehealth Telehealth Location of provider rendering services: practice address Location of patient: address on file Patient Identification confirmed using: Name, : Yes Telehealth method: video Patient verbally consented to treatment: Yes Patient verbally consented to billing insurance company: Yes Patient informed of any privacy concerns related to visit: Yes Coding Level of Care Code Global (07156) Diagnoses S/P laparoscopic sleeve gastrectomy Z98.84
[2023-02-06 15:07] VITALS: BMI 33.9
== END 2023-02-06 15:26 | disposition home or self-care (01) ==
LOC: HO.HBS 15:24
PROVIDERS: PCP Family Medicine; Visit Provider Physician Assistant
DX: Z98.84 Bariatric surgery status (principal)
CPT/HCPCS: 99024

== ENCOUNTER → 2023-02-06 15:24 | Outpatient (BNVA) | payer OTHER, SELFPAY | PROVIDERS: PCP Family Medicine; Visit Provider Physician Assistant ==

== ENCOUNTER 2023-04-19 15:00 | Outpatient (AMB) | payer OTHER, SELFPAY ==
--- NOTE | 2023-04-19 14:55 | MHC.OFFVISWM ---
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 Exercise - 6 days per week. 15 minutes elliptical, 30 minutes on bike (level 5- 11) and then ST weights. 300 calories. Will see sports chiropractor soon for help with back pain. Will have surgery on foot to fix old injuries. Meal plan - 2 Celebrate 4:1 shakes per day at 7 am and 11 am 3 pm yogurt or cottage 6pm - 2 - 3 oz chicken/fish/ shellfish, half cooked veg PFS Medical History (Updated 04/19/23 @ 14:56 by Margarita Boo PA-C) Obesity GERD (gastroesophageal reflux disease) PTSD (post-traumatic stress disorder) Depression History of positive PPD BMI 39.0-39.9,adult H. pylori infection Vitamin B12 deficiency Vitamin D deficiency Back pain Hyperlipidemia Morbid obesity Surgical History Hx of section History of surgery on lower extremity Hx of oral surgery Family History Sister Hypertension Obesity Daughter No problems noted. Son No problems noted. 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 primary wound care technician to a significant other at home: Yes (minor children) Do you presently have visiting nurse or other home services: No Alcohol intake: current Alcohol intake frequency: does not drink Patient Tobacco Use Status: Former Tobacco user Quit Date: 2011 Tobacco use type: Cigarette Assessment & Plan Assessment & Plan (1) Obesity: Code(s): E66.9 - Obesity, unspecified Plan: $ months post op with wonderful weight loss. She does not want to make any changes to her meal plan, goal of 80 grams protien per day. Will contineu 2 Celebrate 4:1 shakes - consider mixing with water cc or yougrt - may add 1 oz fresh fruit dinner of 2 or 3 oz protien and 2 oz cooked or raw vegetables. Exercise - 5 - 6 d/ week and change work outs to lower and higher intensity days - consider spin class on bike. Next appt with me in 2 months, post op labs ordered, will continue to text me with weight and progress. Goal of ~140 lbs. \ Patient is still obese and is not considered stable at this time. I spent 30 minutes in total speaking with the patient via video conference counseling , reviewing records and charting in patients chart. . (2) S/P laparoscopic sleeve gastrectomy: Code(s): Z98.84 - Bariatric surgery status Orders: Orders IRON PROFILE Today E66.9 - Obesity, unspecified, Z98.84 - Bariatric surgery status Vitamin B12 and Folate Today E66.9 - Obesity, unspecified, Z98.84 - Bariatric surgery status Zinc Today E66.9 - Obesity, unspecified, Z98.84 - Bariatric surgery status Comprehensive Met. Panel Today E66.9 - Obesity, unspecified, Z98.84 - Bariatric surgery status Vitamin B1 Today E66.9 - Obesity, unspecified, Z98.84 - Bariatric surgery status Vitamin A Today E66.9 - Obesity, unspecified, Z98.84 - Bariatric surgery status C Reactive Protein Today E66.9 - Obesity, unspecified, Z98.84 - Bariatric surgery status Ferritin Today E66.9 - Obesity, unspecified, Z98.84 - Bariatric surgery status Vitamin D 25-OH Total Today E66.9 - Obesity, unspecified, Z98.84 - Bariatric surgery status Hemoglobin A1c Today E66.9 - Obesity, unspecified, Z98.84 - Bariatric surgery status Insulin Today E66.9 - Obesity, unspecified, Z98.84 - Bariatric surgery status Lipid Panel Today E66.9 - Obesity, unspecified, Z98.84 - Bariatric surgery status Complete Blood Count Auto Diff Today E66.9 - Obesity, unspecified, Z98.84 - Bariatric surgery status PTHI Today E66.9 - Obesity, unspecified, Z98.84 - Bariatric surgery status TSH reflex Free T4 Today E66.9 - Obesity, unspecified, Z98.84 - Bariatric surgery status Referrals Nutrition/Dietitian Referral E66.9 - Obesity, unspecified, Z98.84 - Bariatric surgery status Behavioral Health Referral E66.9 - Obesity, unspecified, Z98.84 - Bariatric surgery status Telehealth Telehealth Location of provider rendering services: practice address Location of patient: address on file Patient Identification confirmed using: Name, : Yes Telehealth method: video Patient verbally consented to treatment: Yes Patient verbally consented to billing insurance company: Yes Patient informed of any privacy concerns related to visit: Yes Coding Level of Care Code Tele Est Pt Level 4 (34336) Diagnoses Obesity E66.9 S/P laparoscopic sleeve gastrectomy Z98.84
== END 2023-04-19 15:34 | disposition home or self-care (01) ==
LOC: HO.HBS 15:32
PROVIDERS: PCP Family Medicine; Visit Provider Physician Assistant
DX: E66.9 Obesity, unspecified (principal); Z98.84 Bariatric surgery status
CPT/HCPCS: 99214

== ENCOUNTER → 2023-04-19 15:00 | Outpatient (BNVA) | payer OTHER, SELFPAY | PROVIDERS: PCP Family Medicine; Visit Provider Physician Assistant | DX: E66.9 Obesity, unspecified (principal); Z98.84 Bariatric surgery status ==

== ENCOUNTER 2023-06-19 16:00 | Outpatient (AMB) | payer OTHER, SELFPAY ==
--- NOTE | 2023-06-19 15:54 | MHC.OFFVISWM ---
Intake VS Expanded 06/19/23 16:08 Height 5 ft 5 in Weight 166 lb 4 oz BMI 27.7 Intake Visit Reasons: VIDEO PO LSG 12/16/22 Allergies No Known Allergies Allergy (Verified 01/13/23 09:55) HPI HPI Comments History of Present Illness Details Pt is now 6 months post op LSG, no complaints. 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 Her goal is 145 lbs. Meal plan- 7- 9 am and 11 am - 1pm --2 shakes per day, Celebrate 4:1 2 scoops with Lactaid milk (doesn't like it with water). 7pm - 4-6 forks fish/chicken 3 pieces of broccoli Exercise - had slowed down and now working on oncreasing again. Post op complications: none ELIS: DM HTN: Hyperlipidemia: GERD: 0, Satisfaction with present condition - satisfied [facility] Medical History (Updated 06/19/23 @ 15:56 by Margarita Boo PA-C) Obesity GERD (gastroesophageal reflux disease) PTSD (post-traumatic stress disorder) Depression History of positive PPD BMI 39.0-39.9,adult H. pylori infection Vitamin B12 deficiency Vitamin D deficiency Back pain Hyperlipidemia Morbid obesity Surgical History Hx of section History of surgery on lower extremity Hx of oral surgery Family History Sister Hypertension Obesity Daughter No problems noted. Son No problems noted. 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 primary customer care voice consultant to a significant other at home: Yes (minor children) Do you presently have visiting nurse or other home services: No Alcohol intake: current Alcohol intake frequency: does not drink Patient Tobacco Use Status: Former Tobacco user Quit Date: 2011 Tobacco use type: Cigarette Physical Exam Const General: cooperative, healthy appearing and no acute distress GI Inspection: Yes scar (well healed) Assessment & Plan Assessment & Plan (1) Overweight (BMI 25.0-29.9): Code(s): E66.3 - Overweight Plan: Pt is now 6 months s/p LSG. Patient will get labs drawn tomorrow. Will now alternate days and have 2 4:1 shakes on some days and other days have another shake and bariatric MVI and calciium/vit D. Needs about 70 - 75 grams per day now. 3 eating periods about 4 hours apart. dinner of 6 forks protienand 4 forks vegetable. Next appt with me in 3 months. I spent 30 minutes in total speaking with the patient via video conference counseling , reviewing records and charting in patients chart. . (2) S/P laparoscopic sleeve gastrectomy: Code(s): Z98.84 - Bariatric surgery status Plan: see above Medications: New calcium citrate-vitamin D3 315 mg-5 mcg (200 unit) (Calcium Citrate + D) 1 tab PO BID 60 tabs 11RF Telehealth Telehealth Location of provider rendering services: practice address Location of patient: address on file Patient Identification confirmed using: Name, : Yes Telehealth method: video Patient verbally consented to treatment: Yes Patient verbally consented to billing insurance company: Yes Patient informed of any privacy concerns related to visit: Yes Coding Level of Care Code Tele Est Pt Level 4 (45438) Diagnoses Overweight (BMI 25.0-29.9) E66.3 S/P laparoscopic sleeve gastrectomy Z98.84
[2023-06-19 16:08] VITALS: BMI 27.7
== END 2023-06-19 16:36 | disposition home or self-care (01) ==
LOC: HO.HBS 16:34
PROVIDERS: PCP Family Medicine; Visit Provider Physician Assistant
DX: E66.3 Overweight (principal); Z98.84 Bariatric surgery status
CPT/HCPCS: 99214

== ENCOUNTER → 2023-06-19 16:00 | Outpatient (BNVA) | payer OTHER, SELFPAY | PROVIDERS: PCP Family Medicine; Visit Provider Physician Assistant | DX: E66.9 Obesity, unspecified (principal); Z98.84 Bariatric surgery status ==

== ENCOUNTER 2023-06-20 08:37 | Outpatient (REF) | payer OTHER, SELFPAY ==
[2023-06-20 09:03] LABS: MANUAL DIFF FLAG NO
[2023-06-20 09:35] LABS: Basophils Percent Auto 0.7 % (0-2); Eosinophils Absolute Auto 0.1 X10*3/uL (0.0-0.4); Eosinophils Percent Auto 2.2 % (0-4); Hematocrit 40.3 % (37.0-47.0); Hemoglobin 12.8 g/dl (12.0-16.0); Imm Gran Abs Auto 0.01 X10*3/uL (0.00-0.03); Imm Gran Pct Auto 0.2 % (0.0-0.4); Lymphocytes Absolute Auto 2.2 X10*3/uL (1.2-4.9); Lymphocytes Percent Auto 40.9 % (20-40); Mean Corpuscular HGB Conc 31.8 g/dl (31.0-35.0); Mean Corpuscular Hemoglobin 27.6 pg (27.0-33.0); Mean Platelet Volume 11.9 fL (9.4-12.3); Monocytes Absolute Auto 0.4 X10*3/uL (0.1-1.2); Monocytes Percent Auto 6.4 % (2-11); Neutrophils Absolute Auto 2.7 x10*3/uL (2.0-8.3); Neutrophils Percent Auto 49.6 % (45-73); Platelet Count 220 X10*3/uL (160-400); Red Blood Count 4.63 X10*6/uL (4.20-5.50); Red Cell Distribution Width 14.2 % (11.0-16.0); White Blood Count 5.4 X10*3/uL (4.8-10.8)
[2023-06-20 09:40] LABS: Estimated Average Glucose 111 mg/dL; Hemoglobin A1c % 5.5 % (<6.0)
[2023-06-20 10:01] LABS: Alanine Aminotransferase 15 U/L (0-31); Albumin Level 4.2 g/dL (3.5-5.0); Alkaline Phosphatase 65 U/L (39-117); Anion Gap 10 (12-20); Aspartate Amino Transferase 15 U/L (5-31); Blood Urea Nitrogen 16 mg/dL (9-16); C Reactive Protein 0.11 mg/dL (< or = 0.50); Calcium 9.6 mg/dL (8.4-10.2); Carbon Dioxide 30 mmol/L (22-29); Chloride 108 mmol/L (96-108); Cholesterol 202 mg/dL (<200); Estimated Glomerular Filt Rate > 60; Glucose Random 100 mg/dL (60-115); HDL Cholesterol 50 mg/dL (>40); Iron 128 mcg/dL (30-160); LDL Cholesterol Calculated 134 mg/dL (<100); Percent Iron Saturation 38 % (15-50); Potassium 4.1 mmol/L (3.3-5.1); Sodium 144 mmol/L (135-145); Total Iron Binding Capacity 340 mcg/dL (228-428); Total Protein 6.8 g/dL (6.5-8.0); Triglycerides 94 mg/dL (<150); Unsaturated Iron Binding 212 ug/dL
[2023-06-20 10:30] LABS: Ferritin 37 ng/mL (10-250); TSH reflex Free T4 0.95 uIU/mL (0.32-4.0); Vitamin D 25-OH Total 54.5 ng/mL (>30)
[2023-06-20 10:31] LABS: Folate 15.2 ng/mL (> or = 4.0); Vitamin B12 572 pg/mL (200-900)
[2023-06-20 10:40] LABS: Insulin 4 uU/mL (2-29)
[2023-06-21 15:54] LABS: Calcium (PTHI) 9.4 mg/dL (8.6-10.2); PTHI 17 pg/mL (16-77)
[2023-06-23 16:57] LABS: Zinc 78 mcg/dL (60-130)
[2023-06-24 15:19] LABS: Vitamin B1 17 nmol/L (8-30)
[2023-06-27 02:39] LABS: Vitamin A 52 mcg/dL (38-98)
== END 2023-06-20 08:38 | disposition home or self-care (01) ==
LOC: HO.LAB 08:37
PROVIDERS: PCP Family Medicine; Visit Provider Physician Assistant
DX: E66.9 Obesity, unspecified (principal); Z98.84 Bariatric surgery status
CPT/HCPCS: 36415; 80053; 80061; 82306; 82607; 82728; 82746; 83036; 83525; 83540; 83970; 84425; 84443; 84590; 84630; 85025; 86140

== ENCOUNTER 2023-09-14 10:30 | Outpatient (AMB) | payer OTHER, SELFPAY ==
[2023-09-14 10:29] VITALS: BMI 25.9
--- NOTE | 2023-09-14 10:29 | A.OFFVIS_ITS ---
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 Her goal is to weigh 145 lbs. Exercise - alternates between elliptical with bike 5 d/week, 600- 700 calories over 20-30 minutes.Spin classes on her phone. Last week started weights - LE and UE 3 sets of 10 -Abds 3 sets of 12 - 100 lbs. Meal plan: loves it! Needs 65 - 70 per day 7 am - Rebuild shake with lactaid 11 am - may miss her second shake and santo ve humus and vegetable instead 6 pm - 6 forks of protein and prefers co oked vegetables - 3-4 forks Drinks a lot of black tea throughout the day. [facility] Medical History (Updated 06/19/23 @ 15:56 by Margarita Boo PA-C) Obesity GERD (gastroesophageal reflux disease) PTSD (post-traumatic stress disorder) Depression History of positive PPD BMI 39.0-39.9,adult H. pylori infection Vitamin B12 deficiency Vitamin D deficiency Back pain Hyperlipidemia Morbid obesity Surgical History Hx of section History of surgery on lower extremity Hx of oral surgery Family History Sister Hypertension Obesity Daughter No problems noted. Son No problems noted. 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 primary school childcare attendant to a significant other at home: Yes (minor children) Do you presently have visiting nurse or other home services: No Alcohol intake: current Alcohol intake frequency: does not drink Patient Tobacco Use Status: Former Tobacco user Quit Date: 2011 Tobacco use type: Cigarette Assessment & Plan Assessment & Plan (1) Overweight (BMI 25.0-29.9): Code(s): E66.3 - Overweight Plan: Wants to lose another 10 lbs. Will make sure to get 65 - 70 grams of protein divided over 3 eating periods with an ocassional snack. Will continue to exercise as above. Next appt in November for annual appt with PA with post op labs.. Will continue to text me weights and questions. I spent 30 minutes in total speaking with the patient via video conference counseling , reviewing records and charting in patients chart. . (2) S/P laparoscopic sleeve gastrectomy: Code(s): Z98.84 - Bariatric surgery status Plan: as above Telehealth Telehealth Location of provider rendering services: practice address Location of patient: address on file Patient Identification confirmed using: Name, : Yes Telehealth method: video Patient verbally consented to treatment: Yes Patient verbally consented to billing insurance company: Yes Patient informed of any privacy concerns related to visit: Yes Coding Level of Care Code Tele Est Pt Level 4 (39779) Diagnoses Overweight (BMI 25.0-29.9) E66.3 S/P laparoscopic sleeve gastrectomy Z98.84
== END 2023-09-14 11:04 | disposition home or self-care (01) ==
LOC: HO.HBS 10:40
PROVIDERS: PCP Family Medicine; Visit Provider Physician Assistant
DX: E66.3 Overweight (principal); Z98.84 Bariatric surgery status
CPT/HCPCS: 99214

== ENCOUNTER → 2023-09-14 10:30 | Outpatient (BNVA) | payer OTHER, SELFPAY | PROVIDERS: PCP Family Medicine; Visit Provider Physician Assistant ==

== ENCOUNTER 2023-12-19 14:52 | Outpatient (AMB) | payer OTHER, SELFPAY ==
--- NOTE | 2023-12-19 14:47 | A.OFFVIS_ITS ---
VS Expanded 12/19/23 14:49 Height 5 ft 5 in Weight 157 lb 3.2 oz BMI 26.2 Intake Visit Reasons: VIDEO PO LSG 12/16/22 Allergies No Known Allergies Allergy (Verified 01/13/23 09:55) HPI Comments Details: This?a?48?yo female who is s/p LSG without hiatal hernia repair on?12/16/2022. Presents for 1 year post op visit. Weight today is 157.2 pounds, with a BMI of 26.2. There has been a 87.6 pound weight loss,(initial weight 244.8 pounds) since starting the program on 10/31/2022 reflecting a 35.7% total body weight loss and a weight loss of 74.3 pounds since surgery (operative weight 231.5 pounds) reflecting a 32% TBWL since surgery. No complaints of nausea, emesis, abdominal pain or reflux. Reports infrequent but normal bowel movements every 1-2 days and uses stool softeners regularly. States her goal is to reach 145 pounds Present meal plan includes: Celebrate 4 in 1, 2 scoops in 8 oz lactaid milk, 33 gm each: 7-8am, 12-1 pm ZP bar 3 pm (3 out of 7 days of the week) meal at 6pm spinach and chicken or chicken and [place] fries, tuna melt w kosovan on rye toast (not measuring) Drinking 32-48 oz water ? Exercise routine includes: no exercise for 4 weeks started last week now elliptical 400-600 calories 5x last week. Any post op complications: none ELIS: never DM: never HTN: never Hyperlipidemia: improved GERD:?0-5 scale ??0 = no symptoms ??1 = symptoms noticeable but not bothersome 2 =symptoms bothersome but not daily ? 3 = symptoms bothersome and daily 4 = symptoms affect daily activities 5 = symptoms are incapacitating, unable to do daily activities ? How bad is the heartburn: 0 ? Heartburn while lying down: 0 ? Heartburn when standing up: 0 ? Heartburn after meals: 0 ? Does heartburn change your diet: 0 ? Does heartburn wake you up from sleep: 0 ? Do you have difficulty swallowin ? Do you have pain with swallowin ? If you take medicine for your reflux, does this affect your daily life: 0 Satisfaction with present condition - satisfied or not satisfied: satisfied [facility] Medical History (Updated 06/19/23 @ 15:56 by Margarita Boo PA-C) Obesity GERD (gastroesophageal reflux disease) PTSD (post-traumatic stress disorder) Depression History of positive PPD BMI 39.0-39.9,adult H. pylori infection Vitamin B12 deficiency Vitamin D deficiency Back pain Hyperlipidemia Morbid obesity Surgical History Hx of section History of surgery on lower extremity Hx of oral surgery Family History Sister Hypertension Obesity Daughter No problems noted. Son No problems noted. 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 at home: Yes (minor children) Do you presently have visiting nurse or other home services: No Alcohol intake: current Alcohol intake frequency: does not drink Patient Tobacco Use Status: Former Tobacco user Quit Date: 2011 Tobacco use type: Cigarette Telehealth Telehealth Telehealth Platform: Telephone Location of provider rendering services: practice address Location of patient: address on file Patient Identification confirmed using: Name, : Yes Telehealth method: voice only Patient verbally consented to treatment: Yes Patient verbally consented to billing insurance company: Yes Patient informed of any privacy concerns related to visit: Yes Minutes spent on Phone/Video with Pt.: 20 Assessment & Plan Assessment & Plan (1) Overweight (BMI 25.0-29.9): Code(s): E66.3 - Overweight Category: Medical Plan: Overall doing well. Wishes to achieve a goal of a 12 lb weight loss. We will recommend changing meal plan to include: Celebrate 4 in 1, 1 scoop in 8 oz of Lactaid milk at 8-10 and 11-1. Half cup fresh fruit at 15:00 if she wishes or an apple or pear or kiwi or orange Meal at 18:00, 6 forks of protein and 6 forks of vegetables Recommend bariatric fusion multivitamin at night We will check yearly labs Encouraged to return to the gym as she had been doing 5 days a week, 400-600 calories per day Return to clinic 6 weeks. Encouraged to weigh herself weekly, on Tuesdays, and text me the results as well as to text with any questions or concerns. Orders: Orders Insulin Today E66.3 - Overweight, E78.5 - Hyperlipidemia, unspecified, K74.00 - Hepatic fibrosis, unspecified Hemoglobin A1c Today E66.3 - Overweight, E78.5 - Hyperlipidemia, unspecified, K74.00 - Hepatic fibrosis, unspecified H Pylori Breath Test Today E66.3 - Overweight, E78.5 - Hyperlipidemia, unspecified, K74.00 - Hepatic fibrosis, unspecified Vitamin B12 and Folate Today E66.3 - Overweight, E78.5 - Hyperlipidemia, unspecified, K74.00 - Hepatic fibrosis, unspecified Vitamin B1 Today E66.3 - Overweight, E78.5 - Hyperlipidemia, unspecified, K74.00 - Hepatic fibrosis, unspecified Vitamin A Today E66.3 - Overweight, E78.5 - Hyperlipidemia, unspecified, K74.00 - Hepatic fibrosis, unspecified TSH reflex Free T4 Today E66.3 - Overweight, E78.5 - Hyperlipidemia, unspecified, K74.00 - Hepatic fibrosis, unspecified Ferritin Today E66.3 - Overweight, E78.5 - Hyperlipidemia, unspecified, K74.00 - Hepatic fibrosis, unspecified Vitamin D 25-OH Total Today E66.3 - Overweight, E78.5 - Hyperlipidemia, unspecified, K74.00 - Hepatic fibrosis, unspecified Basic Metabolic Panel Today E66.3 - Overweight, E78.5 - Hyperlipidemia, unspecified, K74.00 - Hepatic fibrosis, unspecified Complete Blood Count Auto Diff Today E66.3 - Overweight, E78.5 - Hyperlipidemia, unspecified, K74.00 - Hepatic fibrosis, unspecified Lipid Panel Today E66.3 - Overweight, E78.5 - Hyperlipidemia, unspecified, K74.00 - Hepatic fibrosis, unspecified IRON PROFILE Today E66.3 - Overweight, E78.5 - Hyperlipidemia, unspecified, K74.00 - Hepatic fibrosis, unspecified Zinc Today E66.3 - Overweight, E78.5 - Hyperlipidemia, unspecified, K74.00 - Hepatic fibrosis, unspecified C Reactive Protein Today E66.3 - Overweight, E78.5 - Hyperlipidemia, unspecified, K74.00 - Hepatic fibrosis, unspecified
[2023-12-19 14:49] VITALS: BMI 26.2
== END 2023-12-19 15:13 | disposition home or self-care (01) ==
LOC: HO.HBS 14:52
PROVIDERS: PCP Family Medicine; Visit Provider Physician Assistant Surgical
DX: E66.3 Overweight (principal)
CPT/HCPCS: 99214

== ENCOUNTER → 2023-12-19 14:52 | Outpatient (BNVA) | payer OTHER, SELFPAY | PROVIDERS: PCP Family Medicine; Visit Provider Physician Assistant Surgical | DX: E66.3 Overweight (principal); Z98.84 Bariatric surgery status ==

== ENCOUNTER 2024-07-17 09:30 | Outpatient (AMB) | payer OTHER, SELFPAY ==
--- NOTE | 2024-07-17 08:19 | MHC.OFFVISWM ---
VS Expanded 07/17/24 08:20 Height 5 ft 5 in Weight 158 lb 2 oz BMI 26.3 Body Fat % 31.5 Body Fat Mass 49.8 Fat Free Mass 108.4 Visceral Fat Rating 9 Body Water % 47 Body Water Mass 74.4 Muscle Mass/Score 101.8 Basal Metabolic Rate/Score 1,428 Intake Visit Reasons: (tv) PO LSG 12/16/22 [place] [employer] Required: No Allergies No Known Allergies Allergy (Verified 01/13/23 09:55) Medication List - Last Reconciled 07/17/24 by JOSEY Epstein calcium citrate-vitamin D3 315 mg-5 mcg (200 unit) (Calcium Citrate + D) 1 tab PO BID HPI Comments Details: This?a?48?yo female who is s/p LSG without hiatal hernia repair on?12/16/2022. Presents for 1 year 7 month post op visit. Weight today is 158.2 pounds, with a BMI of 26.3. There has been a 86.6 pound weight loss,(initial weight 244.8 pounds) since starting the program on 10/31/2022 reflecting a 35.6% total body weight loss and a weight loss of 75.3 pounds since surgery (operative weight 231.5 pounds) reflecting a 31.8% TBWL since surgery. No complaints of nausea, emesis, abdominal pain or reflux. Reports infrequent but normal bowel movements every 1-2 days and uses stool softeners regularly. Labs were ordered at her last appointment however she did not get them done. She has had a URI for the last week. Had foot surgery in february and has not been exercise since then. bunionectomy and hardware removal. Dr Dang from [facility]. She was NWB for 6 weeks. Still not comfortable wearing sneakers and has residual nerve pain. Told it can take months to fully recover. Cannot walk long distances. States her goal is to reach 145 pounds Previous meal plan includes: Celebrate 4 in 1, 1 scoop in 8 oz of Lactaid milk at 8-10 and 11-1. Half cup fresh fruit at 15:00 if she wishes or an apple or pear or kiwi or orange Meal at 6pm, 6 forks of protein and 6 forks of vegetables Drinking 48 oz water ? Exercise routine includes: none since february Any post op complications: none ELIS: never DM: never HTN: never Hyperlipidemia: resolved GERD:?0-5 scale ??0 = no symptoms ??1 = symptoms noticeable but not bothersome 2 =symptoms bothersome but not daily ? 3 = symptoms bothersome and daily 4 = symptoms affect daily activities 5 = symptoms are incapacitating, unable to do daily activities ? How bad is the heartburn: 0 ? Heartburn while lying down: 0 ? Heartburn when standing up: 0 ? Heartburn after meals: 0 ? Does heartburn change your diet: 0 ? Does heartburn wake you up from sleep: 0 ? Do you have difficulty swallowin ? Do you have pain with swallowin ? If you take medicine for your reflux, does this affect your daily life: 0 Satisfaction with present condition - satisfied or not satisfied: satisfied [facility] Medical History (Updated 06/19/23 @ 15:56 by Margarita Boo PA-C) Obesity GERD (gastroesophageal reflux disease) PTSD (post-traumatic stress disorder) Depression History of positive PPD BMI 39.0-39.9,adult H. pylori infection Vitamin B12 deficiency Vitamin D deficiency Back pain Hyperlipidemia Morbid obesity Surgical History Hx of section History of surgery on lower extremity Hx of oral surgery Family History Sister Hypertension Obesity Daughter No problems noted. Son No problems noted. 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 to a significant other at home: Yes (minor children) Do you presently have visiting nurse or other home services: No Alcohol intake: current Alcohol intake frequency: does not drink Patient Tobacco Use Status: Former Tobacco user Tobacco use type: Cigarette Telehealth Telehealth Telehealth Platform: Telephone Location of provider rendering services: practice address Location of patient: address on file Patient Identification confirmed using: Name, : Yes Telehealth method: voice only Patient verbally consented to treatment: Yes Patient verbally consented to billing insurance company: Yes Patient informed of any privacy concerns related to visit: Yes Minutes spent on Phone/Video with Pt.: 20 Assessment & Plan Assessment & Plan (1) S/P laparoscopic sleeve gastrectomy: Code(s): Z98.84 - Bariatric surgery status Category: Surgical Plan: Now that she has mostly recovered from her foot surgery, discussed the importance of returning to the gym. Discussed the importance of adhering to the meal plan. Discussed the principles of purpose fullness, discipline, consistency and time. Encouraged to get labs done that were ordered at her last visit. Continue multivitamin daily. Return to the office in 2 months. Encouraged to send weight is weekly and text with any questions or concerns.
[2024-07-17 08:20] VITALS: BMI 26.3
== END 2024-07-17 10:04 | disposition home or self-care (01) ==
LOC: HO.HBS 09:51
PROVIDERS: PCP Family Medicine; Visit Provider Physician Assistant Surgical
DX: E66.3 Overweight (principal); Z68.26 Body mass index [BMI] 26.0-26.9, adult; Z90.3 Acquired absence of stomach [part of]; Z98.84 Bariatric surgery status
CPT/HCPCS: 99213

== ENCOUNTER 2024-10-11 08:13 | Outpatient (REF) | payer OTHER, SELFPAY ==
--- OUTSIDE RECORDS SUMMARY | 2024-10-11 08:25 | XMS_ITS | Clinical Summary ---
Author Organization [facility] Address [address] [place] [address] Care Team Providers Care Invoice Coder Name Role Phone Solitario Montoya MD Primary Care Provider Marii melendez Allergies No known active allergies Medications Medication Sig Dispensed Refills Start Date End Date Status atorvastatin (LIPITOR) tablet 20 mgIndications:Hyperlip idemia, unspecified hyperlipidemia type Take 1 tablet (20 mg total) by mouth daily. 90 tablet 0 04/13/2020 Active valACYclovir (VALTREX) 1000 MG tabletIndications:Aisha mj herpes simplex, unspecified site Take 1 tablet (1,000 mg total) by mouth daily. 5 tablet 2 10/22/2020 Active clotrimazole-betametha sone (Lotrisone) cream Apply topically 2 (two) times a day. 15 g 1 12/08/2020 Active Active Problems Problem Noted Date Diagnosed Date Class 2 severe obesity due t o excess calories with serious comorbidity and body mass index (BMI) of 39.0 to 39.9 in adult 07/12/2019 Immunizations Name Administration Dates Next Due MMR 02/22/2019,01/03/2019 Pneumococcal Conjugate PCV7 04/05/2013 Tdap 05/31/2015 Zostavax (Zoster Live) 07/31/2010 Social History Tobacco Use Types Packs/Day Years Used Date Smoking Tobacco: Former Smokeless Tobacco: Never Alcohol Use Standard Drinks/Week Comments Yes 0 (1 standard drink = 0.6 oz pur e alcohol) ocassional Sex and Gender Information Value Date Recorded Sex Assigned at Female 10/17/2018 9:04 AM EDT Gender Identity Female 10/17/2018 9:25 AM EDT Sexual Orientation Not on file Last Filed Vital Signs Vital Sign Reading Time Taken Comments Blood Pressure 106/62 08/07/2020 2:26 PM EST Pulse 80 11/03/2020 2:27 PM EDT Per p atient. Temperature 36.2 ??C (97.2 ??F) 08/07/2020 2:26 PM ES T Respiratory Rate 12 11/03/2020 2:27 PM EDT P er patient. Oxygen Saturation 95% 08/07/2020 2:26 PM EST Inhaled Oxygen Concentration - - Weight 100.2 kg (221 lb) 11/03/2020 2:27 PM EDT Per patient. Height 166.4 cm (5' 5.5 ) 11/03/2020 2:27 PM EDT Per patient. Body Mass Index 36.22 11/03/2020 2:27 PM EDT Plan of Treatment Health Maintenance Due Date Last Done Comments Hepatitis B Vaccines (1 of 3 - 3-dose series) 1977 Hepatitis C Screening 1977 Cervical Cancer Screening (Pap Smear) 1998 Preventative Health Evaluation 08/17/2018 08/17/2017 Depression Screening 10/18/2019 10/17/2018 BMI Counseling 11/03/2021 11/03/2020, 02/2021, 09/16/2019, Additional history exists Colon Cancer Screening (Colonoscopy) 2022 COVID-19 Vaccine ( season) 2024 09/23/2020, 08/26/2020 Influenza Vaccine (#1) 2024 05/19/2020, 2019 DTap / Tdap / Td (2 - Td or Tdap) 05/31/2025 05/31/2015 Pneumococcal Vaccine Aged Out 04/05/2013 No long er eligible based on patient's age to complete this topic RSV Ped < 20 months Aged Out No longe r eligible based on patient's age to complete this topic Care Teams Invoice Coder Relationship Specialty Start Date End Date Solitario Montoya MD PCP - General Internal Medicine 08/17/17
--- OUTSIDE RECORDS SUMMARY | 2024-10-11 08:25 | XMS_ITS | Continuity of Care Document ---
Author Organization [facility] Address [address] [place] [address] Phone Care Team Providers Care Microsoft Crm Developer Name Role Phone Admin, Support Unavailable Unavailable Advance Directives Directive Yes / No Effective Date File Name No Information Encounters Encounter Description Practice Location Reason(s) For Visit Diagnoses Date Provider [facility], [address] [place] [address], [address] [place] [address] tel:[phone] PBC / Admin Use No Information 2019 Admin Support. [address] [place] [address], [facility]. tel:[phone] [facility], [address] [place] [address], [address] [place] [address] tel:[phone] [facility] [address] [place] [place] [place] [address], [address] [place] [address], . tel:[phone] [facility], [address] [place] [address], [facility], tel:[phone] [facility] [address] [place] [place] [place] [address], [address] [place] [address], . tel:[phone] Family History Family Member Type Diagnosis Age At Onset No Information Payers Payer name Insurance type Covered libertarian ID [place] [employer](ester) [place] [id number] Social History Type Description Quantity Date Captured Comments Sex Female Smoking Status No Information Sexual Orientation Don't Know Gender Identity Female Chief Complaint And Reason For Visit No Information History Of Present Illness Encounter Date Complaint History Of Prese nt Illness No Information Instructions Date Instruction Additional Infor mation No Information Assessments Type Assessment Date No Information
--- OUTSIDE RECORDS SUMMARY | 2024-10-11 08:25 | XMS_ITS | Clinical Summary ---
Author Organization [facility] Address [address] [place] [address] Care Team Providers Care Pasteurizing Machine Operator Name Role Phone Solitario Montoya MD Primary Care Provider [phone] Allergies No known active allergies Medications atorvastatin (LIPITOR) 20 mg tablet Take 1 tablet (20 mg total) by mouth daily. 0 Active clotrimazole-be tamethasone (LOTRISONE) 1-0.05 % cream Apply topically 2 (two) times a day. 1 Active valACYclovir (VALTREX) 1 gram tablet Take 1 tablet (1,000 mg total) by mouth daily. 1 Active Immunizations Name Administration Dates Next Due MMR, measles mumps and rubel la Live (Priorix; M-M-R II) 12mo and older 02/22/2019,01/03/2019 Moderna SARS-CoV-2 COVID-19, mRNA, LNP-S, preservative free 09/23/2020,08/26/2020 Pneumococcal Conjugate Vaccine, 7 Valent 013 Tdap Tetanus diptheria acell ular pertussis (Boostrix; Adacel) 7yo and older 05/31/2015 Zoster Live 07/31/2010 Surgical History Surgery Date Site/Laterality Comments COLONOSCOPY 05/07/2012 PROCEDURE:COLONOSCOPY ESOPHAGOGASTRODUODENOSCOPY 08/28/2015 PROCEDURE:ESOPHAGOGASTRODUODENO SCOPY;COMMENT:Dr. Lopez APPENDECTOMY PROCEDURE:APPENDECTOMY LEG SURGERY PROCEDURE:LEG SURGERY;COMMENT:SARATH LEG SURGERY PROCEDURE:LEG SURGERY;COMMENT:MESH L HEEL FOOT SURGERY Right PROCEDURE:FOOT SURGERY;COMMENT:PINS R FOOT SECTION PROCEDURE: SECTION Medical History Medical History Date Comments Osteopenia DX:Osteopenia Genital herpes DX:Genital herpe s Suicide attempt ([facility]) DX:[place] cide attempt ([facility]);COMMENT:MULTI TIMES WHEN SHE WAS YOUNGER Depression DX:Depression Social History Tobacco Use Types Packs/Day Years Used Date Smoking Tobacco: Former Smokeless Tobacco: Never Alcohol Use Standard Drinks/Week Comments Yes 0 (1 standard drink = 0.6 oz pur e alcohol) Comments Unknown Sex and Gender Information Value Date Recorded Sex Assigned at Not on file Legal Sex Female 11:46 AM EST Gender Identity Not on file Sexual Orientation Not on file Obstetrics History Plan of Treatment Health Maintenance Due Date Last Done Comments Hepatitis B Vaccines (1 of 3 - 19+ 3-dose series) 1996 Cervical Cancer Screening: P ap Smear 1998 Breast Cancer Screening 09/29/2019 09/28/2017 COVID-19 Vaccine (2023-2 5 season) 2024 09/23/2020, 08/26/2020 Influenza Vaccine (#1) 2024 Colorectal Cancer Screening: Colonoscopy 09/12/2024 Depression Screening 09/12/2024 Hepatitis C Screening 09/12/2024 Social Influencers of Health Screening 09/12/2024 DTaP,Tdap,and Td Vaccines (2 - Td or Tdap) 05/31/2025 05/31/2015 Pneumococcal Vaccine: Pediatrics (0 to 5 Years) and At-Risk Patients (6 to 64 Years) Aged Out 04/05/2013 No longer eligible b ased on patient's age to complete this topic MMR Vaccines Aged Out 02/22/2019, 01/03/2019 No longer eligible based on patient's age to complete this topic HIV Screening Completed 08/07/2020 HIB Vaccines Aged Out No longer eligi ble based on patient's age to complete this topic HPV Vaccines Aged Out No longer eligi ble based on patient's age to complete this topic Hepatitis A Vaccines Aged Out No long er eligible based on patient's age to complete this topic IPV Vaccines Aged Out No longer eligi ble based on patient's age to complete this topic Meningococcal ACWY Vaccine Aged Out N o longer eligible based on patient's age to complete this topic Meningococcal B Vacine Aged Out No lo nger eligible based on patient's age to complete this topic RSV Immunization Patients Under 20 months Aged Out No longer eligible b ased on patient's age to complete this topic Varicella Vaccines Aged Out No longer eligible based on patient's age to complete this topic Procedures Procedure Name Priority Date/Time Associated Diagnosis Comments HM HIV SCREENING Routine 08/07/2020 MAMMOGRAM SCREENING DIGITAL WITH CAD - BILATERAL Routine 09/28/2017 10:26 AM EST Encounter for screening mammogram for malignant neoplasm of breast from Last 3 Months or Most Recently Relevant to Health Maintenance Results * Hm HIV Screening (08/07/2020) Pathologist [facility] HIV Screening Abstracted us Historical Provider MD HEALTH MAINTENANCE Final Result * MAMMOGRAM SCREENING DIGITAL WITH CAD - BILATERAL (09/28/2017 10:26 AM EST) Anatomical Region Laterality Modality Mammography 08/17/2017 9:32 AM EST Narrative 09/28/2017 4:28 PM EST This is a summary report. The complete report is available in the patient's medical record. If you cannot access the medical record, please contact the sending organization for a detailed fax or copy. INDICATIONS FOR EXAM: Screening. COMPARISON: None. Baseline exam. Mammograms analyzed using the Second Look Computer Aided Diagnostic System (CAD). Low-dose digital mammography. Craniocaudad and oblique views. No skin thickening or focal skin retraction. There are scattered fibroglandular densities (approximately 25% - 50% glandular). No significant asymmetry, mass, architectural distortion, trabecular thickening or suspicious calcifications. There is an irregular coarse benign calcification in the upper outer quadrant of the right breast. IMPRESSION: There are scattered fibroglandular densities (approximately 25% - 50% glandular). No mammographic evidence of malignancy. ?? ACR BI-RADS CATEGORY 2 Benign finding Report reviewed and signed by : Dr. Magno Mccloud MD on 09/28/2017 4:28 PM. Workstation Name - [id number] Procedure Note Magno Mccloud MD - 07/20/2022 This is a summary report. The complete report is available in thepatient's medical record. If you cannot access the medical record, pleasecontact the sending organization for a detailed fax or copy. INDICATIONS FOR EXAM: Screening. COMPARISON: None. Baseline exam. Mammograms analyzed using the Second Look Computer Aided Diagnostic System(CAD). Low-dose digital mammography. Craniocaudad and oblique views. No skinthickening or focal skin retraction. There are scattered fibroglandulardensities (approximately 25% - 50% glandular). No significant asymmetry,mass, architectural distortion, trabecular thickening or suspiciouscalcifications. There is an irregular coarse benign calcification in theupper outer quadrant of the right breast. IMPRESSION: There are scattered fibroglandular densities (approximately 25% - 50%glandular). No mammographic evidence of malignancy. ACR BI-RADS CATEGORY 2 Benign finding Report reviewed and signed by : Dr. Magno Mccloud MD on 09/28/2017 4:28 PM.Workstation Name - [id number] Solitario Montyoa MD IMG BI PROCEDURES Final Result from Last 3 Months or Most Recently Relevant to Health Maintenance Care Teams Pasteurizing Machine Operator Relationship Specialty Start Date End Date Solitario Montoya MD PCP - General Internal Medicine 08/17/17
[2024-10-11 08:36] LABS: MANUAL DIFF FLAG NO
[2024-10-11 09:15] LABS: Basophils Percent Auto 0.8 % (0-2); Eosinophils Absolute Auto 0.1 X10*3/uL (0.0-0.4); Hematocrit 38.5 % (37.0-47.0); Hemoglobin 12.5 g/dl (12.0-16.0); Imm Gran Abs Auto 0.02 X10*3/uL (0.00-0.03); Imm Gran Pct Auto 0.4 % (0.0-0.4); Lymphocytes Absolute Auto 1.8 X10*3/uL (1.2-4.9); Lymphocytes Percent Auto 36.1 % (20-40); Mean Corpuscular HGB Conc 32.5 g/dl (31.0-35.0); Mean Corpuscular Hemoglobin 26.3 pg (27.0-33.0); Mean Corpuscular Volume 81.1 fL (80.0-98.0); Mean Platelet Volume 11.3 fL (9.4-12.3); Monocytes Absolute Auto 0.3 X10*3/uL (0.1-1.2); Neutrophils Absolute Auto 2.6 x10*3/uL (2.0-8.3); Neutrophils Percent Auto 53.7 % (45-73); Platelet Count 228 X10*3/uL (160-400); Red Blood Count 4.75 X10*6/uL (4.20-5.50); Red Cell Distribution Width 15.2 % (11.0-16.0); White Blood Count 4.9 X10*3/uL (4.8-10.8)
[2024-10-11 09:20] LABS: Estimated Average Glucose 108 mg/dL; Hemoglobin A1c % 5.4 % (<6.0); Total Hemoglobin (HGBA1C) 2960.8333 umol/L
[2024-10-11 10:33] LABS: Anion Gap 10 (12-20); Blood Urea Nitrogen 19 mg/dL (9-16); C Reactive Protein < 0.10 mg/dL (< or = 0.50); Carbon Dioxide 27 mmol/L (22-29); Chloride 110 mmol/L (96-108); Cholesterol 228 mg/dL (<200); Estimated Glomerular Filt Rate > 60; Glucose Random 91 mg/dL (60-115); HDL Cholesterol 72 mg/dL (>40); Iron 64 mcg/dL (30-160); LDL Cholesterol Calculated 141 mg/dL (<100); Percent Iron Saturation 15 % (15-50); Potassium 4.1 mmol/L (3.3-5.1); Sodium 143 mmol/L (135-145); Total Iron Binding Capacity 433 mcg/dL (228-428); Triglycerides 76 mg/dL (<150); Unsaturated Iron Binding 369 ug/dL
[2024-10-11 10:42] LABS: Ferritin 8 ng/mL (10-250); Folate 9.3 ng/mL (> or = 4.0); TSH reflex Free T4 0.97 uIU/mL (0.32-4.0); Vitamin B12 419 pg/mL (200-900); Vitamin D 25-OH Total 31.4 ng/mL (>30)
[2024-10-11 11:11] LABS: Insulin 4 uU/mL (2-29)
[2024-10-15 04:02] LABS: Zinc 73 mcg/dL (60-130)
[2024-10-16 00:14] LABS: Vitamin A 87 mcg/dL (38-98)
[2024-10-20 11:44] LABS: Vitamin B1 8 nmol/L (8-30)
== END 2024-10-11 08:14 | disposition home or self-care (01) ==
LOC: HO.LAB 08:13
PROVIDERS: PCP Family Medicine; Visit Provider Physician Assistant Surgical
DX: E66.3 Overweight (principal); K74.00 Hepatic fibrosis, unspecified; E78.5 Hyperlipidemia, unspecified; Z13.1 Encounter for screening for diabetes mellitus
CPT/HCPCS: 36415; 80048; 80061; 82306; 82607; 82728; 82746; 83036; 83525; 83540; 84425; 84443; 84590; 84630; 85025; 86140

== ENCOUNTER 2024-10-14 08:17 | Outpatient (AMB) | payer OTHER, SELFPAY ==
--- NOTE | 2024-10-14 08:20 | MHC.OFFVISWM ---
VS Expanded 10/14/24 08:32 BP 121/69 Blood Pressure Location Rt brachial Blood Pressure Position Sitting Pulse 73 Pulse Source Pulse Oximeter Temp 99.9 F Temperature Source Temporal Artery Scan Pulse Oximetry 97 Oxygen Delivery Method Room Air Height 5 ft 5 in Weight 162 lb 3.2 oz BMI 27.0 Body Fat % 27.1 Body Fat Mass 43.8 Fat Free Mass 118.2 Visceral Fat Rating 5.0 Body Water % 51.8 Body Water Mass 84.0 Muscle Mass/Score 112.2 Basal Metabolic Rate/Score 1,570 Intake Visit Reasons: (OV) PO LSG 12/16/22 Manager Sharepoint Required: No Allergies No Known Allergies Allergy (Verified 10/14/24 08:27) Medication List - Last Reconciled 10/14/24 by JOSEY Epstein clotrimazole 1% (Antifungal (clotrimazole)) 1 appl topical BID HPI Comments Details: This?a?49?yo female who is s/p LSG without hiatal hernia repair on?12/16/2022. Presents for 1 year 10 month post op visit. Weight today is 162.2 pounds, with a BMI of 27. There has been a 82.6 pound weight loss,(initial weight 244.8 pounds) since starting the program on 10/31/2022 reflecting a 33.7% total body weight loss and a weight loss of 69.3 pounds since surgery (operative weight 231.5 pounds) reflecting a 29.9% TBWL since surgery. No complaints of nausea, emesis, abdominal pain or reflux. Reports infrequent but normal bowel movements every 1-2 days and uses stool softeners regularly. Labs were ordered at her last appointment however she did not get them done. She has had a URI for the last week. Had foot surgery in february and has not been exercise since then. bunionectomy and hardware removal. Dr Dang from [facility]. She was NWB for 6 weeks. Still not comfortable wearing sneakers and has residual nerve pain. Told it can take months to fully recover. Cannot walk long distances. Since last visit she has gained 4 pounds and was not following quantity of food. Not using shakes she was supposed to and not taking MVI. Using elevation shake 30 gm per scoop in 8 oz lactaid milk. 2 sccops in 16 oz over 4 hrs, then a meal with protein and sometimes pasta, veggies. not measuring food portion. sometimes hot chocolate in lactaid milk after dinner, or chips or pub mix. She states that she has had rashes about the abdomen. Underneath the abdominal pannus. This would occur perhaps once a month, worse with increased activity and sweating. This would resolve with nkbu-fng-zlzqsrm measures such as powders or barriers such as clothing between the skin folds. This has additionally caused significant itching, odor, distress over the rash. She would have to increase her hygiene during the times of the rash so as to deal with the odor and itch. We will prescribe antifungal cream. No current rash today. She will alert us with any rashes that she gets, certainly with the weather changing and becoming warmer, I suspect that this will become more of a problem. Therefore the prescription antifungal cream will be used as indicated. States her goal is to reach 145 pounds Previous meal plan includes: Celebrate 4 in 1, 1 scoop in 8 oz of Lactaid milk at 8-10 and 11-1. Half cup fresh fruit at 15:00 if she wishes or an apple or pear or kiwi or orange Meal at 6pm, 6 forks of protein and 6 forks of vegetables Drinking 48 oz water ? Exercise routine includes: none weights at home lives next to a track [facility] Medical History Obesity GERD (gastroesophageal reflux disease) PTSD (post-traumatic stress disorder) Depression History of positive PPD BMI 39.0-39.9,adult H. pylori infection Vitamin B12 deficiency Vitamin D deficiency Back pain Hyperlipidemia Morbid obesity Surgical History Hx of foot surgery Hx of section History of surgery on lower extremity Hx of oral surgery Family History Sister Hypertension Obesity Daughter No problems noted. Son No problems noted. 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 primary child care associate to a significant other at home: Yes (minor children) Do you presently have visiting nurse or other home services: No Alcohol intake: current Alcohol intake frequency: a few times a week Patient Tobacco Use Status: Former Tobacco user Tobacco use type: Cigarette Physical Exam Const General: healthy appearing and no acute distress Resp Effort & Inspection: normal respiratory effort Auscultation: clear to auscultation bilaterally Cardio Rate: regular rate Rhythm: regular rhythm GI Auscultation: normal bowel sounds Extrem General: Yes normal to inspection Assessment & Plan Assessment & Plan (1) S/P laparoscopic sleeve gastrectomy: Code(s): Z98.84 - Bariatric surgery status Category: Surgical Plan: Discussed multiple issues at today's appointment. Discussed recent lab work. She is going to inquire with her primary care physician regarding the possibility of restarting statin medications. Discussed the importance of vitamin levels trending downward. She will start a bariatric multivitamin as well as calcium plus D as she is not following the meal plan as was recommended. Patient was given information regarding the right BMI keegan. she is going to start her meal plan and follow it exactly. She states that her goal is to achieve a healthy weight and healthy lifestyle. We talked about the importance of consistency, discipline, purpose fullness. She will follow the meal plan as directed. Discussed the importance of exercise as to how it directly relates to her weight loss as well as cardiovascular health. She states that she is going to rejoin the gym and goal is to burn 300 calories per day or more, or 2000 calories per week or more. Encouraged to text weight weekly and with any questions or concerns. We will have her return to the office in approximately 6 weeks. (2) Excess skin: Code(s): L98.7 - Excessive and redundant skin and subcutaneous tissue Category: Medical Plan: Given patient's weight loss, she has developed excess skin of the abdomen. She has had intermittent rashes although over the winter time these have been less frequent. With the upcoming warmer weather, I suspect these will increase in frequency. She has tried cjsd-man-gphtthm remedies with varying degrees of success. The excess skin has caused rashes, itching, burning. She has had to increase hygiene as a result of this and this has affected her activities of daily living. We will prescribe antifungal topical medication. Follow closely. Likely will need medically approved skin removal surgery. Medications: New clotrimazole 1% (Antifungal (clotrimazole)) 1 appl topical BID 45 grams 3RF
[2024-10-14 08:32] VITALS: BP 121/69; PULSE 73; TEMP 37.7; O2SAT 97; BMI 27.0
--- OUTSIDE RECORDS SUMMARY | 2024-10-14 08:32 | XMS_ITS | Clinical Summary ---
Author Organization [facility] Address [address] [place] [address] Care Team Providers Care Coal Wheeler Name Role Phone Solitario Montoya MD Primary Care Provider [phone] Allergies No known active allergies Medications atorvastatin [...] Genital herpes DX:Genital herpe s Suicide attempt ([facility]) DX:[place] cide attempt ([facility]);COMMENT:MULTI TIMES WHEN SHE WAS YOUNGER Depression DX:Depression [...] Results * Hm HIV Screening (08/07/2020) Pathologist [facility] HIV Screening Abstracted us Historical Provider MD [...] on 09/28/2017 4:28 PM. Workstation Name - [id number] Procedure Note Magno Mccloud MD - 07/20/2022 [...] MD on 09/28/2017 4:28 PM.Workstation Name - [id number] Solitario Montoya MD IMG BI PROCEDURES Final Result from Last 3 Months or Most Recently Relevant to Health Maintenance Care Teams Coal Wheeler Relationship Specialty Start Date End Date Solitario Montoya MD PCP - General Internal Medicine 08/17/17
--- OUTSIDE RECORDS SUMMARY | 2024-10-14 08:32 | XMS_ITS | Clinical Summary ---
Author Organization [facility] Address [address] [place] [address] Care Team Providers Care Electronic Technologist Name Role Phone Solitario Montoya MD Primary [...] age to complete this topic Care Teams Electronic Technologist Relationship Specialty Start Date End Date Solitario Montoya MD PCP - General Internal Medicine 08/17/17
--- OUTSIDE RECORDS SUMMARY | 2024-10-14 08:32 | XMS_ITS | Continuity of Care Document ---
Author Organization [facility] Address [address] [place] [address] Phone Care Team Providers Care Manager Baby Name Role Phone Admin, Support Unavailable Unavailable Advance Directives Directive Yes / No Effective Date File Name No Information Encounters Encounter Description Practice Location Reason(s) For Visit Diagnoses Date Provider [facility], [address] [place] [address], [address] [address] tel:[phone] PBC / Admin Use No Information 2019 Admin Support. [address] [place] [address], [facility]. tel:[phone] [facility], [address] [place] [address], [address] [place] [address] tel:[phone] [facility] [address] [place] [place] [place] [address], [address] [place] [address], . tel:[phone] [facility], [address] [place] [address], [facility], tel:[phone] [facility] [address] [place] [place] [place] [address], [address] [place] [address], . tel:[phone] Family History Family Member Type Diagnosis Age At Onset No Information Payers Payer name Insurance type Covered green party ID German [employer]ice(ester) Belle [facility] [id number] Social History Type Description Quantity Date Captured [...]
== END 2024-10-14 09:23 | disposition home or self-care (01) ==
PROVIDERS: PCP Family Medicine; Visit Provider Physician Assistant Surgical
DX: L98.7 Excessive and redundant skin and subcutaneous tissue (principal); Z90.3 Acquired absence of stomach [part of]; Z98.84 Bariatric surgery status
CPT/HCPCS: 99214

== ENCOUNTER → 2024-10-14 08:17 | Outpatient (BNVA) | payer OTHER, SELFPAY | PROVIDERS: PCP Family Medicine; Visit Provider Physician Assistant Surgical ==

== ENCOUNTER 2024-11-26 08:30 | Outpatient (AMB) | payer OTHER, SELFPAY ==
--- NOTE | 2024-11-26 08:26 | MHC.OFFVISWM ---
VS Expanded 11/26/24 08:27 Height 5 ft 5 in Weight 156 lb 4 oz BMI 26.0 Body Fat % 31.1 Body Fat Mass 48.6 Fat Free Mass 107.8 Visceral Fat Rating 9 Body Water % 47.3 Body Water Mass 74 Muscle Mass/Score 101.4 Basal Metabolic Rate/Score 1,413 Intake Visit Reasons: (TV) PO LSG 12/16/22 Tile Ditcher Required: No Allergies No Known Allergies Allergy (Verified 10/14/24 08:27) Medication List - Last Reconciled 11/26/24 by JOSEY Epstein clotrimazole 1% (Antifungal (clotrimazole)) 1 appl topical BID HPI Comments Details: This?a?49?yo female who is s/p LSG without hiatal hernia repair on?12/16/2022. Presents for 1 year 11 month post op visit. Weight today is 156.4 pounds, with a BMI of 26. There has been a 88.4 pound weight loss,(initial weight 244.8 pounds) since starting the program on 10/31/2022 reflecting a 36.1% total body weight loss and a weight loss of 75.1 pounds since surgery (operative weight 231.5 pounds) reflecting a 32.4% TBWL since surgery. No complaints of nausea, emesis, abdominal pain or reflux. Reports infrequent but normal bowel movements every 1-2 days and uses stool softeners regularly. Labs were ordered at her last appointment however she did not get them done. She has had a URI for the last week. Had foot surgery in february and has not been exercise since then. bunionectomy and hardware removal. Dr Dang from [facility]. She was NWB for 6 weeks. States now fully recovered. She has had redness/itching and rash to abdominal fold 2 x in the last month. Improved with topical Rx cream, although recurred. Having to do hygene to the extra skin 2-3 times per day, especially with increased exercise. She continues to have difficulty with clothing fitting properly at the abdomen. Since last visit she has seen her PCP who was not concerned with her cholesterol and she will have it re-checked in one year. States her goal is to reach 145 pounds meal plan includes: pure protein 1 scoop in 16 oz lactaid with 16 oz water, split in 4 at 7-9, 11-1, 3-5, 8-10 meal at 6 4 forks protein and 4 forks veg Drinking 48 oz water ? Exercise routine includes: 5 days per week 600-800 calories with elliptical/bike/weights at anytime fitness [facility] Medical History Obesity GERD (gastroesophageal reflux disease) PTSD (post-traumatic stress disorder) Depression History of positive PPD BMI 39.0-39.9,adult H. pylori infection Vitamin B12 deficiency Vitamin D deficiency Back pain Hyperlipidemia Morbid obesity Surgical History Hx of foot surgery Hx of section History of surgery on lower extremity Hx of oral surgery Family History Sister Hypertension Obesity Daughter No problems noted. Son No problems noted. 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 primary resident caregiver to a significant other at home: Yes (minor children) Do you presently have visiting nurse or other home services: No Alcohol intake: current Alcohol intake frequency: a few times a week Patient Tobacco Use Status: Former Tobacco user Tobacco use type: Cigarette Telehealth Telehealth Telehealth Platform: Telephone Location of provider rendering services: practice address Location of patient: address on file Patient Identification confirmed using: Name, : Yes Telehealth method: voice only Patient verbally consented to treatment: Yes Patient verbally consented to billing insurance company: Yes Patient informed of any privacy concerns related to visit: Yes Minutes spent on Phone/Video with Pt.: 15 Assessment & Plan Assessment & Plan (1) S/P laparoscopic sleeve gastrectomy: Code(s): Z98.84 - Bariatric surgery status Category: Surgical Plan: Patient is doing much better. Exercising regularly. Following meal plan through the right BMI keegan. we have encouraged her to continue to do so, continue to track calories with exercising. We will have her return to the office in approximately 1 month. Encouraged to continue send weight is weekly and text with any questions or concerns. (2) Excess skin: Code(s): L98.7 - Excessive and redundant skin and subcutaneous tissue Category: Medical Plan: Given her 88 lb weight loss including 75 lb since surgery, she has developed excess skin of the abdomen with recurrent abdominal pannus dermatitis. The excess skin has additionally negatively impacted her ADLs requiring excessive hygiene. She additionally has difficulty with clothing fitting properly. She continues to use prescriptive antifungal creams as needed for rash. She has had 2 rashes in the last month. We will continue to follow clinically and consideration for request for approval for medically necessary skin removal surgery.
[2024-11-26 08:27] VITALS: BMI 26.0
--- OUTSIDE RECORDS SUMMARY | 2024-11-26 09:11 | XMS_ITS | Clinical Summary ---
Author Organization [facility] Address [address] [place] [address] Care Team Providers Care Human Resources Intern Name Role Phone Solitario Montoya MD Primary Care Provider [phone] Allergies No known active allergies Medications atorvastatin [...] Genital herpes DX:Genital herpe s Suicide attempt ([facility] , [facility] V28) DX:Suicide attempt ([facility]);COM MENT:MULTI TIMES WHEN SHE WAS YOUNGER Depression DX:Depression [...] Breast Cancer Screening 09/29/2019 09/28/2017 COVID-19 Vaccine ( - 2023-2 5 season) 2024 09/23/2020, 08/26/2020 Colorectal Cancer Screening: Colonoscopy 09/12/2024 Depression Screening 09/12/2024 Hepatitis C Screening 09/12/2024 Social Influencers of Health Screening 09/12/2024 Influenza Vaccine (Season Ended) 2025 DTaP,Tdap,and Td Vaccines (2 - Td or [...] age to complete this topic Meningococcal B Vaccine Aged Out No l onger eligible based on patient's age to complete this topic RSV Immunization Patients Under 20 months Aged Out No longer eligible b ased on patient's age to complete this topic Varicella Vaccines Aged Out No longer eligible based on patient's age to complete this topic Procedures Procedure Name Priority Date/Time Associated Diagnosis Comments HIV SCREENING Routine 08/07/2020 MAMMOGRAM SCREENING DIGITAL WITH CAD - BILATERAL Routine 09/28/2017 10:26 AM EST Encounter for screening mammogram for malignant neoplasm of breast from Last 3 Months or Most Recently Relevant to Health Maintenance Results * Hm HIV Screening (08/07/2020) Pathologist [facility] HIV Screening Abstracted Historical Provider HEALTH MAINTENANCE Final Result * MAMMOGRAM SCREENING [...] on 09/28/2017 4:28 PM. Workstation Name - [id number] Procedure Note Magno Mccloud MD - 07/20/2022 [...] MD on 09/28/2017 4:28 PM.Workstation Name - [id number] Solitario Montoya MD IMG BI PROCEDURES Final Result from Last 3 Months or Most Recently Relevant to Health Maintenance Care Teams Human Resources Intern Relationship Specialty Start Date End Date Solitario Montoya MD PCP - General Internal Medicine 08/17/17
--- OUTSIDE RECORDS SUMMARY | 2024-11-26 09:11 | XMS_ITS | Clinical Summary ---
Author Organization [facility] Address [address] [place] [address] Care Team Providers Care Glazier Structural Glass Name Role Phone Solitario Montoya MD Primary [...] age to complete this topic Care Teams Glazier Structural Glass Relationship Specialty Start Date End Date Solitario Montoya MD PCP - General Internal Medicine 08/17/17
== END 2024-11-26 08:57 | disposition home or self-care (01) ==
LOC: HO.HBS 08:46
PROVIDERS: PCP Family Medicine; Visit Provider Physician Assistant Surgical
DX: L98.7 Excessive and redundant skin and subcutaneous tissue (principal); Z98.84 Bariatric surgery status
CPT/HCPCS: 98967

== ENCOUNTER → 2024-11-26 08:30 | Outpatient (BNVA) | payer OTHER, SELFPAY | PROVIDERS: PCP Family Medicine; Visit Provider Physician Assistant Surgical | DX: L98.7 Excessive and redundant skin and subcutaneous tissue (principal); Z98.84 Bariatric surgery status | CPT/HCPCS: 98967 ==

== ENCOUNTER 2024-12-20 08:12 | Outpatient (AMB) | payer OTHER, SELFPAY ==
--- OUTSIDE RECORDS SUMMARY | 2024-12-20 08:16 | XMS_ITS | Clinical Summary ---
Author Organization [facility] Address [address] [place] [address] Care Team Providers Care Curator Natural History Museum Name Role Phone Solitario Montoya MD Primary [...] age to complete this topic Care Teams Curator Natural History Museum Relationship Specialty Start Date End Date Solitario Montoya MD PCP - General Internal Medicine 08/17/17
--- NOTE | 2024-12-20 08:21 | A.OFFVIS_ITS ---
VS Expanded 12/20/24 08:41 BP 108/59 L Blood Pressure Location Rt brachial Blood Pressure Position Sitting Pulse 68 Pulse Source Pulse Oximeter Temp 97.8 F Temperature Source Temporal Artery Scan Pulse Oximetry 99 Oxygen Delivery Method Room Air Height 5 ft 5 in Weight 155 lb 6.4 oz BMI 25.9 Body Fat % 27.4 Body Fat Mass 42.6 Fat Free Mass 112.6 Visceral Fat Rating 5.0 Body Water % 51.7 Body Water Mass 80.2 Muscle Mass/Score 107.0 Basal Metabolic Rate/Score 1,501 Intake Visit Reasons: (OV) PO LSG 12/16/22 Event Marketing Representative Required: No Allergies No Known Allergies Allergy (Verified 12/20/24 08:33) Medication List - Last Reviewed 12/20/24 by Brittany Shane CMA clotrimazole 1% (Antifungal (clotrimazole)) 1 appl topical BID HPI Comments Details: This?a?49?yo female who is s/p LSG without hiatal hernia repair on?12/16/2022. Presents for 2 year post op visit. Weight today is 155.4 pounds, with a BMI of 25.8. There has been a 89.4 pound weight loss,(initial weight 244.8 pounds) since starting the program on 10/31/2022 reflecting a 36.5% total body weight loss and a weight loss of 76.1 pounds since surgery (operative weight 231.5 pounds) reflecting a 32.8% TBWL since surgery. No complaints of nausea, emesis, abdominal pain or reflux. Reports infrequent but normal bowel movements every 1- 2 days and uses stool softeners regularly. Labs were ordered at her last appointment however she did not get them done. She has had a URI for the last week. Had foot surgery in february and has not been exercise since then. bunionectomy and hardware removal. Dr Dang from [facility]. She was NWB for 6 weeks. States now fully recovered. She has had redness/itching and rash to abdominal fold 2-3 x in the last month. This is also painful. Improved with topical Rx cream, although recurred. Having to do hygene to the extra skin 2-3 times per day, especially with increased exercise. She continues to have difficulty with clothing fitting properly at the abdomen. Since last visit she has seen her PCP who was not concerned with her cholesterol and she will have it re-checked in one year. States her goal is to reach 145 pounds meal plan includes: pure protein 1 scoop in 16 oz 1% cow milk with 16 oz water, split in 4 at 7-9, 11-1, 3-5, 8-10 meal at 6 pm 5 forks protein and 5 forks veg Drinking 50-60 oz water ? Exercise routine includes: 5-6 days per week 600 calories with elliptical/bike/weights at [employer] Any post op complications: none ELIS: never DM: never HTN: never Hyperlipidemia: persists but improved GERD:?0-5 scale ??0 = no symptoms ??1 = symptoms noticeable but not bothersome 2 =symptoms bothersome but not daily ? 3 = symptoms bothersome and daily 4 = symptoms affect daily activities 5 = symptoms are incapacitating, unable to do daily activities ? How bad is the heartburn: 0 ? Heartburn while lying down: 0 ? Heartburn when standing up: 0 ? Heartburn after meals: 0 ? Does heartburn change your diet: 0 ? Does heartburn wake you up from sleep: 0 ? Do you have difficulty swallowin ? Do you have pain with swallowin ? If you take medicine for your reflux, does this affect your daily life: 0 Satisfaction with present condition - satisfied or not satisfied: satisfied except the excess skin PFSH Medical History Obesity GERD (gastroesophageal reflux disease) PTSD (post-traumatic stress disorder) Depression History of positive PPD BMI 39.0-39.9,adult H. pylori infection Vitamin B12 deficiency Vitamin D deficiency Back pain Hyperlipidemia Morbid obesity Surgical History Hx of foot surgery Hx of section History of surgery on lower extremity Hx of oral surgery Family History Sister Hypertension Obesity Daughter No problems noted. Son No problems noted. 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 primary hiv/aids care nurse to a significant other at home: Yes (minor chi ldren) Do you presently have visiting nurse or other home services: No Alcohol intake: current Alcohol intake frequency: a few times a week Patient Tobacco Use Status: Former Tobacco user Tobacco use type: Cigarette Physical Exam Const General: cooperative and no acute distress Orientation/consciousness: patient oriented x3 Resp Effort & Inspection: normal respiratory effort Auscultation: clear to auscultation bilaterally Cardio Rate: regular rate Rhythm: regular rhythm GI Inspection: Yes normal to inspection and Yes incision (well healed) Palpation (GI): Soft to palpation and no masses Skin Other: Who abdominal pannus with evidence of chronic irritation although no active dermatitis on today's exam Neuro General: patient oriented x3 Assessment & Plan Assessment & Plan (1) S/P laparoscopic sleeve gastrectomy: Code(s): Z98.84 - Bariatric surgery status Category: Surgical Plan: Patient is doing well and we will continue following the right BMI keegan. She is consistent in her meal plan and exercise plan. She will incorporate more weight training. We will have her return to the office in a proximally 3 months. (2) Excess skin: Code(s): L98.7 - Excessive and redundant skin and subcutaneous tissue Category: Medical Plan: Given her 89.4 lb weight loss including 76.1 lb since surgery, she has developed excess skin of the abdomen with recurrent abdominal pannus dermatitis. The excess skin has additionally negatively impacted her ADLs requiring excessive hygiene. She additionally has difficulty with clothing fitting properly. She continues to use prescriptive antifungal creams as needed for rash. She has had 3 rashes in the last month. We will request approval for medically necessary skin removal surgery.
[2024-12-20 08:41] VITALS: BP 108/59; PULSE 68; TEMP 36.6; O2SAT 99; BMI 25.9
== END 2024-12-20 08:55 | disposition home or self-care (01) ==
LOC: HO.HBS 08:13
PROVIDERS: PCP Family Medicine; Visit Provider Physician Assistant Surgical
DX: L98.7 Excessive and redundant skin and subcutaneous tissue (principal); Z90.3 Acquired absence of stomach [part of]; Z98.84 Bariatric surgery status
CPT/HCPCS: 99213

== ENCOUNTER → 2024-12-20 08:12 | Outpatient (BNVA) | payer OTHER, SELFPAY | PROVIDERS: PCP Family Medicine; Visit Provider Physician Assistant Surgical ==

== ENCOUNTER 2025-03-03 08:15 | Outpatient (AMB) | payer OTHER, SELFPAY ==
--- NOTE | 2025-03-02 22:21 | A.OFFVIS_ITS ---
VS Expanded 03/03/25 09:22 Height 5 ft 5 in Weight 160 lb 8 oz BMI 26.7 Body Fat % 32.2 Body Fat Mass 51.8 Fat Free Mass 109 Visceral Fat Rating 9 Body Water % 46.5 Body Water Mass 74.8 Basal Metabolic Rate/Score 1,446 Intake Visit Reasons: TV Pre Op LSG 03/13/25 Allergies No Known Allergies Allergy (Verified 03/02/25 22:26) Medication List - Last Reconciled 03/02/25 by Mynor Howard MD cephalexin 500 mg PO Q12H clotrimazole 1% (Antifungal (clotrimazole)) 1 appl topical BID docusate sodium (Colace) 100 mg PO DAILY multivitamin 1 tab PO QAM ondansetron 4 mg PO Q12H HPI HPI TV Pre Op LSG 03/13/25: Details: Start time: 9.00am, End time: 9.30am I spent 15 minutes speaking with the patient on the phone plus an additional 5 minutes reviewing and updating records for a total of 20 minutes HPI Comments Details: Overall weight loss: 89.4lbs, or 36.5% TBWL Is doing on Pure protein shake with 8oz cow milk, another Pure protein shake with one scoop in 8oz water and one meal (5 forks each) PFSH Medical History (Updated 02/27/25 @ 14:53 by Maria C Molina RN) Head injury Obesity GERD (gastroesophageal reflux disease) PTSD (post-traumatic stress disorder) Depression History of positive PPD BMI 39.0-39.9,adult H. pylori infection Vitamin B12 deficiency Vitamin D deficiency Back pain Hyperlipidemia Morbid obesity Surgical History (Updated 02/27/25 @ 14:52 by Maria C Molina RN) History of sleeve gastrectomy Hx of foot surgery Hx of section History of surgery on lower extremity Hx of oral surgery Family History Sister Hypertension Obesity Daughter No problems noted. Son No problems noted. 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 primary physician locums urgent care to a significant other at home: No Do you presently have visiting nurse or other home services: No Alcohol intake: current Alcohol intake frequency: a few times a week Patient Tobacco Use Status: Former Tobacco user Tobacco use type: Cigarette Telehealth Telehealth Telehealth Platform: Telephone Location of provider rendering services: practice address Location of patient: address on file Patient Identification confirmed using: Name, : Yes Telehealth method: voice only Patient verbally consented to treatment: Yes Patient verbally consented to billing insurance company: Yes Patient informed of any privacy concerns related to visit: Yes Minutes spent on Phone/Video with Pt.: 30 Assessment & Plan Assessment & Plan (1) Excess skin: Code(s): L98.7 - Excessive and redundant skin and subcutaneous tissue Category: Medical Plan: 1. Plan for panniculectomy. Risks of infection, bleeding, asymmetry, wound dehiscence and blood clots were discussed with the patient. 2. You will have a drain the abdomen that may stay a few weeks before it may be removed 3. You will need to be doing sponge baths the first 1-2 weeks. No showers. You need to have help at home to get you up and limit your activities as much as possible for at least the 4-6 weeks after surgery 4. We will arrange for a visiting nurse to come at home to help you with dressing changes and send me pictures of the procedures. We will send at your home supplies for the dressing changes. 5. Change nutritional plan to three Pure protein shakes (HALF SCOOP EACH in 8oz low fat unsweetened almond milk each) at 8-10am, 12-2pm and 4-6pm and dinner at 7pm (5 forks of meat and 5 forks of salad or vegetables). This will improve weight loss and healing after surgery. 6. Continue all vitamins 7. Do blood work not fasting any day between Monday03/03/25 and Monday03/07/25 and parts picker the antibiotic prescription from your pharmacy 8. Risks and complications were discussed the possibility of bleeding that may require transfusion, loss of the umbilicus, wound dehiscence or infection, dog ears , flap asymmetry. We also discussed the importance of strict avoidance of weight lifting. 9. Avoid aspirin, motrin, ibuprofen, Aleve, Advil, Naproxyn. 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
--- OUTSIDE RECORDS SUMMARY | 2025-03-03 08:24 | XMS_ITS | Clinical Summary ---
Author Organization [facility] Address [address] [place] [address] Phone Care Team Providers Care Supervisor Name Role Phone Maribell Malone Aj WEEMS Primary Care Provider [phone] Allergies No known active allergies Medications oxyCODONE-aceta minophen (PERCOCET) 5-325 mg per tablet Take 1 tablet by mouth every 4 (four) hours as needed for pain (specific location in comments). Partial fill ok 30 tablet 03/26/2024 Active Active Problems No known active problems Social History Tobacco Use Types Packs/Day Years Used Date Smoking Tobacco: Former Cigarettes Smokeless Tobacco: Never Tobacco Cessation:Counseling Given: Not Answered Comments:Quit 2017 Alcohol Use Standard Drinks/Week Comments Yes 8 (1 standard drink = 0.6 oz pur e alcohol) Education Answer Date Recorded Are you interested in more education? Not on elías e 11/26/2022 Are you concerned about learning? Not on file 11/26/2022 No 11/26/2022 No 11/26/2022 Digital Access Answer Date Recorded No 12/27/2022 No 12/27/2022 Reliable internet access at home? Not on file 12/27/2022 Device with a working camera? Not on file Comments Unknown Sex and Gender Information Value Date Recorded Sex Assigned at Not on file Legal Sex Female 9:22 AM EDT Gender Identity Not on file Sexual Orientation Not on file Last Filed Vital Signs Vital Sign Reading Time Taken Comments Blood Pressure 120/60 03/26/2024 2:16 PM EDT Pulse 65 03/26/2024 2:16 PM EDT Temperature 36.3 C (97.3 F) 03/26/2024 2:16 PM EDT Respiratory Rate 17 03/26/2024 12:45 PM EDT Oxygen Saturation 99% 03/26/2024 2:16 PM EDT Inhaled Oxygen Concentration - - Weight 72.1 kg (159 lb) 03/26/2024 6:10 AM EDT Height 165.1 cm (5' 5 ) 03/26/2024 6:10 AM EDT Body Mass Index 26.46 03/26/2024 6:10 AM EDT Plan of Treatment Health Maintenance Due Date Last Done Comments LIPID PANEL 1977 DEPRESSION SCREENING 1989 SMOKING Hx and SMOKELESS TOBACCO SCREENING 1990 HEPATITIS C SCREENING 1995 HIV ONE-TIME SCREENING (18-6 5 YEARS) 1995 SCREENING FOR DIABETES 2012 MAMMOGRAM 2017 COLOGUARD 2022 COLONOSCOPY 2022 COLORECTAL CANCER SCREENING 2022 FIT TEST 2022 FOBT 2022 SIGMOIDOSCOPY 2022 VIRTUAL COLONOSCOPY 2022 COVID-19 VACCINE (4 - 2023-2 5 season) 2024 05/17/2022, 09/23/2020, 08/26/2020 PAP SMEAR 03/18/2025 03/18/2022 Adult Td,Tdap Booster 05/31/2025 05/31/2015 PNEUMOCOCCAL VACCINES (0-49 years) Aged Out 04/05/2013 No longer eligible b ased on patient's age to complete this topic HEPATITIS A VACCINES Aged Out No long er eligible based on patient's age to complete this topic HIB VACCINES Aged Out No longer eligi ble based on patient's age to complete this topic MENINGOCOCCAL VACCINES (ACWY) Aged Out No longer eligible based on patient's age to complete this topic MENINGOCOCCAL VACCINES (B) Aged Out N o longer eligible based on patient's age to complete this topic Medical Devices Implanted Type Area Customer Support Assistant Device Identifier Shelf Expiration Date Model / Serial / Lot Florilety FLORILETY Wendierobert l: Foot Description:Suicide attempt, jumped off a 4 story building. Many hardware both feet ankles legs Mesh Membrane 4x4.5cm Graft Tissue Epifix Allograft Human Amniotic Dehydrated Ambient Square - [id number] Implanted:Qty: 1 on 03/26/2024 by Audrey Coyle DPM at [facility] Right: Foot [employer] 07/31/2028 [id number] / / Description:Tissue id: [id number] Lapiplasty Speedplate 18 X 14 Rapid Compression Implant Implanted:Qty: 1 on 03/26/2024 by Audrey Coyle DPM at [facility] Right: Foot [employer] 11/19/2028 / / [id number] Description:REF:SK51 Lapiplasty Speedplate Quad 28mm Anatomic Compression Implant Implanted:Qty: 1 on 03/26/2024 by Audrey Coyle DPM at [facility] Right: Foot [employer] 09/20/2028 / / [id number] Description:Ref: sk50 Procedures Procedure Name Priority Date/Time Associated Diagnosis Comments PAP TEST Routine 03/18/2022 12:00 AM EDT from Last 3 Months or Most Recently Relevant to Health Maintenance Results * Pap Smear (03/18/2022 12:00 AM EDT) 03/18/2022 03/22/2022 9:4 1 AM EDT Narrative SEE NARRATIVE - 03/24/2022 2:25 PM EDT [address] [address] Teacher Resource: Lis Carrillo MD MODEL AND PATTERN SUPERVISOR Cytology Report FINAL DIAGNOSIS A. PAP SMEAR (SUREPATH) CE: SPECIMEN ADEQUACY: Satisfactory for evaluation; transformation zone present. INTERPRETATION: NEGATIVE FOR INTRAEPITHELIAL LESION OR MALIGNANCY. Coccobacilli consistent with shift in elena Electronically Signed Out By: YENNIFER Martin(ASCP) The Pap test is a screening test primarily for squamous cancers and precursors and has associated false-negative and false-positive results. New technologies such as liquid-based preparations may decrease but will not eliminate all false-negative results. Regular sampling and follow-up of unexplained clinical signs and symptoms are recommended to minimize false negative results. PROCEDURES/ADDENDA HPV Testing (Requested) Ordered Date: 03/22/2022 A. PAP SMEAR (SUREPATH) CE: Human Papilloma Virus Test Negative for high-risk human papillomavirus types 16, 18, 45 and the Other high risk probe set (Includes 31, 33, 35, 39, 51, 52, 56, 58, 59, 66, 68) by Carlita Cavis microcaps Onclarity HR-HPV analysis. Clinical correlation is advised. This HPV test was performed at [facility], [address] [place] [address]. This test has been FDA approved for SurePath cervical cytology specimens. The accuracy and precision of this test for all other specimen sources has been verified in the Cytopathology Laboratory of the [facility] and has not been cleared or approved by the U.S. Food and Drug Administration. Clinical correlation is advised. CLINICAL HISTORY Date of Last Menstrual Period: 03-10-2022 Other Clinical Conditions: Screening Pap SPECIMEN SOURCE A: PAP SMEAR (SUREPATH) CE Patient Name: MATTHEW ZHONGIA : 1975 (Age: 46) Sex: F Institution: [facility] Location: [facility] Date of Collection: 03/18/2022 Date of Reported: 03/24/2022 14:25 Results to: Maribell Malone DO Maribell Malone DO CYTOLOGY ORDERABLES Final Re sult SEE NARRATIVE from Last 3 Months or Most Recently Relevant to Health Maintenance Insurance BLUE CROSS BLUE BENEFITS ADMINISTRATORS [email or web address] BENEFITS ADMINISTRATORS [email or web address] BENEFITS ADMINISTRATORS [email or web address] BENEFITS ADMINISTRATORS [email or web address] BENEFITS ADMINISTRATORS [email or web address] BENEFITS ADMINISTRATORS [email or web address] BENEFITS ADMINISTRATORS [place] [employer] BENEFITS ADMINISTRATORS [employer] ADMINISTRATORS Care Teams Supervisor Relationship Specialty Start Date End Date Maribell Malone DO [address] [place] [address] [id number] PCP - General Family Medicine 03/14/24 Additional Source Comments The information contained in this document represents components of the legal health record. It is not the complete legal health record.[facility]
--- OUTSIDE RECORDS SUMMARY | 2025-03-03 08:24 | XMS_ITS | Clinical Summary ---
Author Organization [facility] Address [address] [place] [address] Care Team Providers Care Crusher And Binder Operator Name Role Phone Solitario Montoya MD Primary Care Provider [phone] Allergies No known active allergies Medications atorvastatin [...] Genital herpes DX:Genital herpe s Suicide attempt ([facility] V24 , [facility] V28) DX:Suicide attempt ([facility]);COM MENT:MULTI TIMES WHEN SHE WAS YOUNGER [...] - 2023-2 5 season) 2024 09/23/2020, 08/26/2020 Depression Screening 07/31/2024 Colorectal Cancer Screening: Colonoscopy 09/12/2024 Hepatitis C Screening 09/12/2024 Social Influencers of Health Screening 09/12/2024 Influenza Vaccine (#1) 2025 DTaP,Tdap,and Td Vaccines (2 - Td or Tdap) 05/31/2025 05/31/2015 Pneumococcal Vaccine: Pediatrics (0 to 5 Years) and At-Risk Patients (6 to 49 Years) Aged Out 04/05/2013 No longer eligible [...] * Hm HIV Screening (08/07/2020) Pathologist [facility] HIV Screening Abstracted Historical Provider HEALTH MAINTENANCE [...] on 09/28/2017 4:28 PM. Workstation Name - [id number] Procedure Note Magno Mccloud MD - 07/20/2022 [...] MD on 09/28/2017 4:28 PM.Workstation Name - [id number] Solitario Montoya MD IMG BI PROCEDURES Final Result from Last 3 Months or Most Recently Relevant to Health Maintenance Care Teams Crusher And Binder Operator Relationship Specialty Start Date End Date Solitario Montoya MD [address] [place] [id number] PCP - General Internal Medicine 08/17/17
--- OUTSIDE RECORDS SUMMARY | 2025-03-03 08:24 | XMS_ITS | Clinical Summary ---
Author Organization [facility] Address [address] [place] [address] Care Team Providers Care Battery Tester And Repairer Name Role Phone Solitario Montoya MD Primary [...] age to complete this topic Care Teams Battery Tester And Repairer Relationship Specialty Start Date End Date Solitario Montoya MD PCP - General Internal Medicine 08/17/17
[2025-03-03 09:22] VITALS: BMI 26.7
== END 2025-03-03 09:26 | disposition home or self-care (01) ==
LOC: HO.HBS 08:15
PROVIDERS: PCP Family Medicine; Visit Provider Surgery
DX: L98.7 Excessive and redundant skin and subcutaneous tissue (principal)
CPT/HCPCS: 99214

== ENCOUNTER 2025-03-06 07:12 | Outpatient (REF) | payer OTHER, SELFPAY ==
--- OUTSIDE RECORDS SUMMARY | 2025-03-06 07:14 | XMS_ITS | Clinical Summary ---
Author Organization [facility] Address [address] [place] [address] Care Team Providers Care Recycling Attendant Name Role Phone Solitario Montoya MD Primary [...] age to complete this topic Care Teams Recycling Attendant Relationship Specialty Start Date End Date Solitario Montoya MD PCP - General Internal Medicine 08/17/17
--- OUTSIDE RECORDS SUMMARY | 2025-03-06 07:14 | XMS_ITS | Clinical Summary ---
Author Organization [facility] Address [address] [place] [phone] Phone Care Team Providers Care Neurosurgery Research Director Name Role Phone Maribell Malone Aj WEEMS Primary Care Provider [phone] Allergies No known active allergies Medications oxyCODONE-aceta [...] this topic Medical Devices Implanted Type Area Back Up Scan Coordinator Device Identifier Shelf Expiration Date Model / Serial / Lot Florilety FLORILETY Wendierobert l: Foot Description:Suicide attempt, jumped off a 4 story building. Many hardware both feet ankles legs Mesh Membrane 4x4.5cm Graft Tissue Epifix Allograft Human Amniotic Dehydrated Ambient Square - [id number] Implanted:Qty: 1 on 03/26/2024 by Audrey Coyle DPM at [facility] Right: Foot [employer] 07/31/2028 ES-4400 / / Description:Tissue id: [id number] Lapiplasty Speedplate 18 X 14 Rapid Compression Implant Implanted:Qty: 1 on 03/26/2024 by Audrey Coyle DPM at [facility] Right: Foot [employer] 11/19/2028 / / [id number] Description:REF:SK51 Lapiplasty Speedplate Quad 28mm Anatomic Compression Implant Implanted:Qty: 1 on 03/26/2024 by Audrey Coyle DPM at [facility] Right: Foot [employer] 09/20/2028 / / [id number] Description:Ref: sk50 Procedures Procedure Name Priority Date/Time Associated Diagnosis Comments PAP TEST Routine 03/18/2022 12:00 AM EDT from Last 3 Months or Most Recently Relevant to Health Maintenance Results * Pap Smear (03/18/2022 12:00 AM EDT) 03/18/2022 03/22/2022 9:4 1 AM EDT Narrative SEE NARRATIVE - 03/24/2022 2:25 PM EDT [address] [address] Director Post: Lis Carrillo MD INSURANCE INSTRUCTOR Cytology Report FINAL DIAGNOSIS A. PAP SMEAR [...] 56, 58, 59, 66, 68) by Carlita Content Syndicate: [employer] Onclarity HR-HPV analysis. Clinical correlation is advised. This HPV test was performed at [facility], [address] [place] [address]. This test has been FDA approved for SurePath cervical cytology specimens. The accuracy and precision of this test for all other specimen sources has been verified in the Cytopathology Laboratory of the [facility] and has not been cleared or approved by the U.S. Food and Drug Administration. Clinical correlation is advised. CLINICAL HISTORY Date of Last Menstrual Period: 03-10-2022 Other Clinical Conditions: Screening Pap SPECIMEN SOURCE A: PAP SMEAR (SUREPATH) CE Patient Name: MATTHEW ZHONGIA : 1975 (Age: 46) Sex: F Institution: [facility] Location: [facility] Date of Collection: 03/18/2022 Date of Reported: 03/24/2022 14:25 Results to: Maribell Malone DO Maribell Malone DO CYTOLOGY ORDERABLES Final Re sult SEE NARRATIVE from Last 3 Months or Most Recently Relevant to Health Maintenance Insurance BLUE CROSS BLUE BENEFITS ADMINISTRATORS [employer] BENEFITS ADMINISTRATORS [employer] BENEFITS ADMINISTRATORS [employer] BENEFITS ADMINISTRATORS [employer] BENEFITS ADMINISTRATORS [employer] BENEFITS ADMINISTRATORS [employer] BENEFITS ADMINISTRATORS [employer] BENEFITS ADMINISTRATORS [employer] ADMINISTRATORS Care Teams Neurosurgery Research Director Relationship Specialty Start Date End Date Maribell Malone DO [address] [place] [address] [phone] PCP - General Family Medicine 03/14/24 Additional Source Comments The information contained in this document represents components of the legal health record. It is not the complete legal health record.[facility]
--- OUTSIDE RECORDS SUMMARY | 2025-03-06 07:14 | XMS_ITS | Clinical Summary ---
Author Organization [facility] Address [address] [place] [address] Care Team Providers Care Block Setter Gypsum Name Role Phone Solitario Montoya MD Primary Care Provider [phone] Allergies No known active allergies Medications atorvastatin [...] Genital herpes DX:Genital herpe s Suicide attempt ([facility] V24 , [facility] V28) DX:Suicide attempt ([facility]);COM MENT:MULTI TIMES WHEN SHE WAS YOUNGER [...] Results * Hm HIV Screening (08/07/2020) Pathologist [facility] HIV Screening Abstracted Historical Provider HEALTH MAINTENANCE [...] on 09/28/2017 4:28 PM. Workstation Name - [id number] Procedure Note Magno Mccloud MD - 07/20/2022 [...] MD on 09/28/2017 4:28 PM.Workstation Name - [id number] Solitario Montoya MD IMG BI PROCEDURES Final Result from Last 3 Months or Most Recently Relevant to Health Maintenance Care Teams Block Setter Gypsum Relationship Specialty Start Date End Date Solitario Montoya MD [address] [place] [phone] PCP - General Internal Medicine 08/17/17
== END 2025-03-06 07:13 | disposition home or self-care (01) ==
LOC: HO.LAB 07:12
PROVIDERS: Visit Provider Surgery
DX: Z13.89 Encounter for screening for other disorder (principal)

== ENCOUNTER 2025-03-13 10:55 | Day surgery (SDC) | payer OTHER, SELFPAY ==
--- OUTSIDE RECORDS SUMMARY | 2025-02-03 11:40 | XMS_ITS | Clinical Summary ---
Author Organization [facility] Address [address] [place] [address] Care Team Providers Care Land Management Supervisor Name Role Phone Solitario Montoya MD Primary [...] PM EDT Per p atient. Temperature 36.2 C (97.2 F) 08/07/2020 2:26 PM EST Respiratory Rate 12 11/03/2020 2:27 PM EDT [...] season) 2024 09/23/2020, 08/26/2020 Influenza Vaccine (#1) 2025 05/19/2020, 2019 DTap / Tdap / Td (2 - Td or Tdap) 05/31/2025 05/31/2015 Pneumococcal Vaccine Aged Out 04/05/2013 No long er eligible based on patient's age to complete this topic RSV Ped < 20 months Aged Out No longe r eligible based on patient's age to complete this topic Care Teams Land Management Supervisor Relationship Specialty Start Date End Date Solitario Montoya MD PCP - General Internal Medicine 08/17/17
--- OUTSIDE RECORDS SUMMARY | 2025-02-03 11:41 | XMS_ITS | Clinical Summary ---
Author Organization [facility] Address [address] [place] [address] Care Team Providers Care Industrial Engineering Manager Name Role Phone Solitario Montoya MD Primary Care Provider [phone] Allergies No known active allergies Medications atorvastatin [...] Genital herpes DX:Genital herpe s Suicide attempt ([facility] V24 , [facility] V28) DX:Suicide attempt ([facility]);COM MENT:MULTI TIMES WHEN SHE WAS YOUNGER Depression [...] Breast Cancer Screening 09/29/2019 09/28/2017 COVID-19 Vaccine (3 - 2023-2 5 season) 2024 09/23/2020, 08/26/2020 Colorectal Cancer Screening: Colonoscopy 09/12/2024 Depression Screening 09/12/2024 Hepatitis C Screening 09/12/2024 Social Influencers of Health Screening 09/12/2024 Influenza Vaccine (#1) 2025 DTaP,Tdap,and Td Vaccines (2 - Td [...] Results * Hm HIV Screening (08/07/2020) Pathologist [facility] HIV Screening Abstracted Historical Provider HEALTH MAINTENANCE [...] 50% glandular). No mammographic evidence of malignancy. ACR BI-RADS CATEGORY 2 Benign finding Report reviewed and signed by : Dr. Magno Mccloud MD on 09/28/2017 4:28 PM. Workstation Name - [id number] Procedure Note Magno Mccloud MD - 07/20/2022 [...] MD on 09/28/2017 4:28 PM.Workstation Name - [id number] Solitario Montoya MD IMG BI PROCEDURES Final Result from Last 3 Months or Most Recently Relevant to Health Maintenance Care Teams Industrial Engineering Manager Relationship Specialty Start Date End Date Solitario Montoya MD [address] [place] [id number] PCP - General Internal Medicine 08/17/17
[2025-02-27 14:53] VITALS: BMI 25.8
[2025-03-04 07:19] LABS: MANUAL DIFF FLAG NO
[2025-03-04 07:44] LABS: Hematocrit 34.5 % (37.0-47.0); Hemoglobin 10.9 g/dl (12.0-16.0); Imm Gran Abs Auto 0.01 X10*3/uL (0.00-0.03); Imm Gran Pct Auto 0.2 % (0.0-0.4); Lymphocytes Absolute Auto 2.2 X10*3/uL (1.2-4.9); Mean Corpuscular HGB Conc 31.6 g/dl (31.0-35.0); Mean Corpuscular Hemoglobin 25.6 pg (27.0-33.0); Mean Corpuscular Volume 81.0 fL (80.0-98.0); NRBC Abs Auto 0.000 X10*3/uL (0.0-0.012); NRBC Pct Auto 0.0 /100WBC (0.0-0.2); Platelet Count 195 X10*3/uL (160-400); Red Blood Count 4.26 X10*6/uL (4.20-5.50); White Blood Count 5.0 X10*3/uL (4.8-10.8)
[2025-03-04 07:54] LABS: INTERNATIONAL NORM RATIO 0.9 (0.9-1.1); Prothrombin Time 10.1 SEC (10.9-12.4)
[2025-03-04 07:57] LABS: Partial Thromboplastin Time 27.1 SEC (26.7-34.1)
--- NOTE | 2025-03-12 10:18 | HO.ANESPROP2 ---
Documented by User: Chloe Ang NP 03/12/25 10:19 HPI - Anesthesia Eval Consult details Narrative: 49yo F for ?Panniculectomy s/p gastric sleeve 2022 PMF Active Problems Active Problems: All Active Problems Excess skin (Acute) Overweight (BMI 25.0-29.9) (Acute) S/P laparoscopic sleeve gastrectomy (Acute) Liver fibrosis (Acute) Obesity (Acute) GERD (gastroesophageal reflux disease) (Acute) PTSD (post-traumatic stress disorder) (Acute) Depression (Acute) Hyperlipidemia (Acute) Morbid obesity (Acute) Past Medical History Medical History Head injury Obesity GERD (gastroesophageal reflux disease) PTSD (post-traumatic stress disorder) Depression History of positive PPD BMI 39.0-39.9,adult H. pylori infection Vitamin B12 deficiency Vitamin D deficiency Back pain Hyperlipidemia Morbid obesity Family History Family History Sister Hypertension Obesity Daughter No problems noted. Son No problems noted. Surgical History Surgical History History of sleeve gastrectomy Hx of foot surgery Hx of section History of surgery on lower extremity Hx of oral surgery History of Problems with Anesthesia: No Social History 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 primary spiritual care coordinator to a significant other at home: No Do you presently have visiting nurse or other home services: No Alcohol intake: current Alcohol intake frequency: a few times a week Patient Tobacco Use Status: Former Tobacco user Tobacco use type: Cigarette Use of substances other than those prescribed or required for medical reasons: No Have you been hit, kicked, punched, or otherwise hurt by someone within the past year? If so, by whom?: No Spiritual Healthcare Practices: no [facility] Practices: no Cultural Healthcare Practices: no Are you DNR?: No Advance Directives: No (spouse primary contact) Advance Directives on File: No Patient : No FDLMP: 02/15/25 : No Poor oral hygiene: No Meds Allergies Allergy/AdvReac Type Severity Reaction Status Date / Time No Known Allergies Allergy Verified 03/02/25 22:26 Home Medications ?Medication ?Instructions ?Recorded ?Confirmed ?Last Taken ?Type multivitamin 1 tab PO QAM 02/27/25 03/02/25 Unknown History Exam Height,Weight and Vital Signs: Height 5 ft 5 in Weight 70.307 kg Pertinent Lab Results Pertinent Lab Results: Laboratory Tests 03/04/25 03/06/25 07:17 07:29 WBC 5.0 RBC 4.26 Hgb 10.9 L Hct 34.5 L MCV 81.0 MCH 25.6 L MCHC 31.6 RDW 15.4 Plt Count 195 MPV 11.3 Immature Gran % (Auto) 0.2 Neut % (Auto) 43.0 L Lymph % (Auto) 43.3 H Ballard % (Auto) 7.3 Eos % (Auto) 5.6 H Baso % (Auto) 0.6 Lymph # (Auto) 2.2 Ballard # (Auto) 0.4 Eos # (Auto) 0.3 Baso # (Auto) 0.0 Abs Immat Gran (auto) 0.01 Absolute Neuts (auto) 2.1 Absolute Nucleated RBC 0.000 Nucleated RBC % (auto) 0.0 PT 10.1 L INR 0.9 APTT 27.1 Blood Type O Positive Antibody Screen NEGATIVE Laboratory Tests 12/10/22 10/11/24 08:56 08:34 WBC 5.9 Hgb 12.7 Hct 39.3 Plt Count 231 Sodium 143 143 Potassium 4.0 4.1 Chloride 113 H 110 H Carbon Dioxide 22 27 BUN 15 19 H Creatinine 0.75 0.69 Assessment and Plan Assessment Anesthesia Assessment: Chart Reviewed Final Anesthetic Review History of Problems with Anesthesia: No Documented by User: Geo Sky MD 03/13/25 12:26 [facility] Past Medical History Medical History Head injury Obesity GERD (gastroesophageal reflux disease) PTSD (post-traumatic stress disorder) Depression History of positive PPD BMI 39.0-39.9,adult H. pylori infection Vitamin B12 deficiency Vitamin D deficiency Back pain Hyperlipidemia Morbid obesity Functional capacity: independent ambulation Patient : No Family History Family History Sister Hypertension Obesity Daughter No problems noted. Son No problems noted. Family history of problems with anesthesia: No Surgical History Surgical History History of sleeve gastrectomy Hx of foot surgery Hx of section History of surgery on lower extremity Hx of oral surgery Social History 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 primary spiritual care coordinator to a significant other at home: No Do you presently have visiting nurse or other home services: No Alcohol intake: current Alcohol intake frequency: a few times a week Patient Tobacco Use Status: Former Tobacco user Tobacco use type: Cigarette Use of substances other than those prescribed or required for medical reasons: No Have you been hit, kicked, punched, or otherwise hurt by someone within the past year? If so, by whom?: No Spiritual Healthcare Practices: no [facility] Practices: no Cultural Healthcare Practices: no Are you DNR?: No Advance Directives: No (spouse primary contact) Advance Directives on File: No Patient : No FDLMP: 02/15/25 : No Poor oral hygiene: No Meds Allergies Allergy/AdvReac Type Severity Reaction Status Date / Time No Known Allergies Allergy Verified 03/02/25 22:26 Home Medications ?Medication ?Instructions ?Recorded ?Confirmed ?Last Taken ?Type multivitamin 1 tab PO QAM 02/27/25 03/02/25 Unknown History Exam Exam Date and Time: 03/13/2025 Airway TM Dist: >3cm Neck ROM: Full Loose/Missing/Broken Teeth: No Heart: rrr Lungs: cta Assessment and Plan Assessment Anesthesia Assessment: Anesthesia Plan Discussed Final Anesthetic Review Family History of Problems with Anesthesia: No NPO: Yes ASA Class: II Final Preanesthetic Review: No Changes in Pt Med Stat, Meds/Allgs Chart Reviewed, Consent Obtained/Reviewed, Anes Risks/Benef Reviewed and DNR Form (If Appl.) Patient Risk: Low Procedure Risk: Low Anesthetic Plan Anesthetic Plan: GA Disposition: Standard PACU and Inp. Admit - [facility]
[2025-03-13] VITALS (12 sets, daily range): BP systolic 96–129; BP diastolic 59–85; PULSE 62–103; RESP 13–20; TEMP 36.6–36.9; O2SAT 94–98
--- NOTE | 2025-03-13 10:05 | P.F2F_ITS ---
Service Date Service Date: 03/13/25 Encounter Date of encounter: 03/13/25 Reasons for Services Signs and symptoms assessed: s/p panniculectomy with drain placement, requires 3x/weekly nursing care with wound assessment, dressing changes and drain care Homebound: Leaving the home is medically contraindicated at this time without the asist of a device and/or another person due th the listed conditions above and below. Reason homebound: unable to drive Certification: Based on the above findings, I certify that this patient is confined to the home and needs intermittent penitentiary care, physical therapy and/or speech therapy, or continues to need occupational therapy. The patient is under my care, and I have initiated the establishment of the plan of care. The patient will be followed by a physician who will periodically review the plan of care. Time Spent With Patient Time: Total time managing care of this patient today __30__ minutes.
[2025-03-13] MEDS: Lactated Ringers 1,000 ML 100 ML IVCONT (11:31)
[2025-03-13] MEDS: Aprepitant 32 MG/4.4 ML VIAL IVPUSH (11:31)
--- NOTE | 2025-03-13 11:38 | PC.NURSE ---
patient unable to urinate at this time for Urine ordered. Dr. Sky and Dr. Jon aware. Okay to proceed with procedure without test.
--- NOTE | 2025-03-13 12:29 | MHC.SHP ---
Pre-Procedural Eval Section A - 24 Hr Update-Section A only Date of Service: 03/13/25 The patient is an INPATIENT: No The patient has been examined within 24 hours of the surgical procedure. The History & Physical has been completed within 30 days and I have reviewed it.: Yes Section B - Complete if H&P > 30 days Chief Complaint: Excessive and redundant skin and subcutaneous Relevant Family History (Specify if Yes): No Relevant Social History: None Present Medications: None Medical History: No relevant PMH History of Previous Operations: Relevant previous surgery/procedure and date(s) (Laparoscopic sleeve gastrectomy) Allergies: Allergies Allergy/AdvReac Type Severity Reaction Status Date / Time No Known Allergies Allergy Verified 03/02/25 22:26 Review of Systems Sugical H&P ROS: Negative: Constitution, Cardiovascular, Respiratory, Neurological, Psychiatric, Hem-Onc, Allergic/Immunologic, Gastrointestinal, Genitourinary, Musculoskeletal, Integumentary, Endocrine and Eyes/Ears/Nose/Throat Exam Surgical H&P Exam: Normal: HEENT, Normal: Heart, Normal: Lungs, Normal: Extremities, Normal: Abdomen, Normal: Skin and Normal: Neurological Plan Diagnosis/Plan: Unchanged I have reviewed the history and physical and performed a pertinent physical examination on my patient. No changes have occurred unless specified. Time Spent With Patient Time: Total time managing care of this patient today ____ minutes.
--- NOTE | 2025-03-13 12:35 | P.BOP_ITS ---
Brief Operative Note Date of Service: 03/13/25 Pre-op diagnosis: Excess skin Post-op diagnosis: same Procedure: PROCEDURE: Panniculectomy with umbilical transposition and bilateral subcutaneous fat flaps INDICATION: This a 49 year old female who underwent laparoscopic sleeve gastrectomy on 01/18/2023. She had an excellent result achieving a BMI of 26.7 kg/m2 with a total weight loss of 89.4lbs, or 36.5% of her TBWL. As a result, she has developed panniculitis which has not resolved despite continuous use of clotrimazole ointment as well as skin irritation. On exam she has extreme skin laxity due to massive weight loss, with the abdominal pannus completely hanging 4cm below the pubis. Panniculectomy was recommended. We discussed the two options for the panniculectomy of using a combined vertical and horizontal incisions or just a horizontal (bikini) incision. It was my recommendation to do only horizontal incision based on her body habitus and skin laxity. The patient agreed with this. Risks and complications were discussed with the patient including bleeding, infection, umbilical loss, flap necrosis, asymmetry, dehiscence, seroma, VTE. The patient understood the risks and was in agreement to proceed with surgery. PROCEDURE: The incisions were appropriately marked at the preop area with the patient standing and laying down. After induction of general anesthesia a Jones catheter and pneumatic compression devices were placed. The patient was prepped and draped in the usual sterile manner and the incisions were marked again and confirmed. The skin was infiltrated with lidocaine and epinephrine. The #10 blade scalpel w as used for the large incisions and the #15 blade scalpel for the umbilicus. Cautery was used to divide the subcutaneous tissues until the fascia was identified. Then I used the cautery to separate the pannus from the fascia. The inferior incision was made initially and I mobilized the flap for a several centimeters cephalad to the umbilicus. The umbilicus was incised circumferentially and detached from the surrounding tissues all the way to the fascia while its stalk was preserved. With the patient in reflex position I confirmed that the skin flaps were appropriate and would allow for the tissues to come together with reasonable tension. At that point a horizontal incision was made 4 cm above the umbilicus. #10 blade was used for the skin, cautery for the dermis and for the remaining tissues. A subcutaneous fat flap was raised from the upper skin flap in order to fill the space under the skin and support the closure of the two flaps. In addition the inferior flap was mobilized caudally for a few centimeters to create a space for the subcutaneous fat flap as well as relieve tension from the closure. A circumferential incision was made at the area where the umbilicus would be re-implanted. The umbilicus was appropriately oriented and was delivered through the defect and was secured in place with a Felipe. No bleeding was noted anywhere. One EMIGDIO drain was placed from the left corner of the horizontal incision across the wound and was secured in place with a silk suture. The subcutaneous fat flap was secured under the inferior flap with several interrupted 3.0 Monocryl sutures. The two flaps were brought together and were attached at the midline of the horizontal incision with a #3.0 Monocryl suture. At that point the umbilicus was properly oriented and was re-approximated to the skin with 8 interrupted 3.0 Monocryl sutures. In a similar fashion the skin flaps were re-approximated with multiple 3.0 Monocryl sutures. The skin was closed in all incisions and umbilicus with 4.0 Monocryl sutures. Steri-strips, xeroform gauzes and gauzes were used to cover the incisions. An abdominal binder was also placed. The was awaken and was transferred to the recover room in a stable condition. I was present and performed the entire procedure. 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 Marko Howard MD, PhD, FACS Surgeon: Mynor Howard MD Surgeon: Mynor Howard MD Anesthesia: local Was an Medical Psychotherapist used for this Procedure?: No Medical Psychotherapist: Katie Eden Estimated blood loss (mL): 10 IV fluids (mL): 1,200 Urine output (mL): 0 (No Jones to record output) Pathology: other (Abdominal pannus) Condition: stable Disposition: PACU
== END 2025-03-13 18:23 | disposition home or self-care (01) ==
PROVIDERS: PCP Family Medicine; Visit Provider Surgery
PROC: 0JB80ZZ Excision of Abdomen Subcutaneous Tissue and Fascia, Open Approach (ICD-10-PCS; CPT 15830; principal; 2025-03-13 13:10)
DX: L98.7 Excessive and redundant skin and subcutaneous tissue (principal); M79.3 Panniculitis, unspecified; E65 Localized adiposity; R21 Rash and other nonspecific skin eruption; K21.9 Gastro-esophageal reflux disease without esophagitis; E66.9 Obesity, unspecified; Z68.25 Body mass index [BMI] 25.0-25.9, adult; E78.5 Hyperlipidemia, unspecified; E55.9 Vitamin D deficiency, unspecified; E53.8 Deficiency of other specified B group vitamins; Z79.899 Other long term (current) drug therapy; Z98.84 Bariatric surgery status; Z98.890 Other specified postprocedural states; Z87.891 Personal history of nicotine dependence
CPT/HCPCS: 15830; 15847; 36415; 85025; 85610; 85730; 86850; 86900; 86901; 88304; C9145; J0131; J0690; J1100; J1171; J2003; J2004; J2250; J2405; J2704; J3010; J3374

== ENCOUNTER → 2025-03-13 13:10 | Outpatient (BNV) | payer OTHER, SELFPAY | PROVIDERS: PCP Family Medicine; Visit Provider Physician Assistant Surgical | DX: M79.3 Panniculitis, unspecified (principal); L98.7 Excessive and redundant skin and subcutaneous tissue; Z48.817 Encounter for surgical aftercare following surgery on the skin and subcutaneous tissue | CPT/HCPCS: 15830; G0180 ==

== ENCOUNTER 2025-03-20 10:22 | Outpatient (AMB) | payer OTHER, SELFPAY ==
--- OUTSIDE RECORDS SUMMARY | 2025-03-15 02:00 | XMS_ITS | Encounter Summary ---
Author Organization [facility] Address [address] [facility] [address] [place] [phone] Phone Care Team Providers Care Oil Well Perforator Operator Name Role Phone Maribell Malone DO Primary Care Provider + [phone] Reason for Visit * Auth/Cert (Routine) Specialty Diagnoses / Procedures Referred By Matthew t Referred To Contact Referral ID Status Reason Start Date Expiration Date Visits Re quested Visits Authorized [id number] 1 1 Encounter Details Date Type Department Care Team (Late st Contact Info) Description 03/15/2025 2:00 AM EDT Home Care Visit [facility] [address] [place] [phone] Tamika Mcduffie RN [address] [place] [address] [email or web address] SN OASIS START OF CARE (SOC) Social History Tobacco Use Types Packs/Day Years Used Date Smoking Tobacco: Former Cigarettes Smokeless Tobacco: Never Comments:Quit 2016 Alcohol Use Standard Drinks/Week Comments Yes 8 (1 standard drink = 0.6 oz pur e alcohol) Home Health Assessment: Transportation Answer Date Recorded Lack of Transportation (Medical) Yes 03/15/2025 Lack of Transportation (Non-Medical) Yes 03/15/2025 Patient Unable or Declines to Respond No 03/15/2025 Education Answer Date Recorded Are you interested [...] on file Sexual Orientation Not on file documented as of this encounter Last Filed Vital Signs Vital Sign Reading Time Taken Comments Blood Pressure 118/72 03/15/2025 10:00 AM EDT Pulse 58 03/15/2025 10:00 AM EDT Temperature 36.5 C (97.7 F) 03/15/2025 10:00 AM EDT Respiratory Rate 14 03/15/2025 10:00 AM EDT Oxygen Saturation 98% 03/15/2025 10:00 AM EDT Inhaled Oxygen Concentration - - Weight - - Height - - Body Mass Index - - documented in this encounter Plan of Treatment Upcoming Encounters Date Type Department Care Team (Late st Contact Info) Description 03/21/2025 1:00 AM EDT Home Care Visit [facility] [address] [place] [address] Emeli Cm RN [address] [place] [phone] [email or web address] 03/24/2025 2:00 AM EDT Home Care Visit [facility] [address] [place] [address] Emeli Cm RN [address] [place] [address] [email or web address] 03/26/2025 1:00 AM EDT Home Care Visit [facility] [address] [place] [address] Emeli Cm RN [address] [place] [address] [email or web address] 03/28/2025 12:30 AM EDT Home Care Visit [facility] [address] [place] [address] Emlei Cm RN [address] [place] [address] [email or web address] 03/31/2025 1:30 AM EDT Home Care Visit [facility] [address] [place] [phone] Emeli Cm, LEI [address] [place] [address] 04/02/2025 1:30 AM EDT Home Care Visit [facility] [address] [place] [phone] Emeli Cm, LEI [address] [place] [address] [email or web address] 04/04/2025 1:00 AM EDT Home Care Visit [facility] [address] [place] [phone] Emeli mC RN [address] [place] [address] [email or web address] 04/07/2025 1:30 AM EDT Home Care Visit [facility] [address] [place] [phone] Emeli Cm, LEI [address] [place] [address] [email or web address] 04/09/2025 Home Care Visit [facility] [address] [place] [phone] Emeli Cm, LEI [address] [place] [address] [email or web address] 04/11/2025 1:00 AM EDT Home Care Visit [facility] [address] [place] [phone] Emeli Cm, LEI [address] [place] [address] [email or web address] 04/14/2025 1:30 AM EDT Home Care Visit [facility] [address] [place] [phone] Emeli Cm, LEI [address] [place] [address] [email or web address] 04/16/2025 1:00 AM EDT Home Care Visit [facility] [address] [place] [phone] Emeli Cm RN [address] [place] [address] [email or web address] 04/18/2025 12:30 AM EDT Home Care Visit [facility] [address] [place] [phone] Emeli Cm RN [address] [place] [address] [email or web address] 04/21/2025 1:30 AM EDT Home Care Visit [facility] [address] [place] [phone] Emeli Cm RN [address] [place] [address] [email or web address] 04/23/2025 1:00 AM EDT Home Care Visit [facility] [address] [place] [phone] Emeli Cm RN [address] [place] [address] [email or web address] 04/25/2025 12:30 AM EDT Home Care Visit [facility] [address] [place] [phone] Emeli Cm RN [address] [place] [address] [email or web address] 04/28/2025 1:30 AM EDT Home Care Visit [facility] [address] [place] [phone] Emeli Cm, RN [address] [place] [address] [email or web address] 04/30/2025 12:30 AM EDT Home Care Visit [facility] [address] [place] [phone] Tamika Mcduffie RN [address] [place] [address] 05/02/2025 Home Care Visit [facility] [address] [place] [phone] Emeli Cm, LEI [address] [place] [address] [email or web address] 05/05/2025 12:30 AM EDT Home Care Visit [facility] [address] [place] [phone] Emeli Cm, RN [address] [place] [address] [email or web address] 05/07/2025 Home Care Visit [facility] [address] [place] [phone] Emeli Cm, RN [address] [place] [address] [email or web address] 05/09/2025 12:30 AM EDT Home Care Visit [facility] [address] [place] [phone] Emeli Cm, RN [address] [place] [address] [email or web address] 05/12/2025 Home Care Visit [facility] [address] [place] [phone] Emeli Cm, RN [address] [place] [address] [email or web address] documented as of this encounter Visit Diagnoses Not on filedocumented in this encounter Home Health Visit - Care Plan Visit Details Visit Type -SN OASIS START O F CARE (SOC) Discipline -Fci Problems Problem Description Start Date Status Goals Interve ntions HH - Medication Management Disciplines: All Active Home Health Disciplines 03/15/2025 Active 1 goal linked to scheduled/document ed intervention 2 goal interventions scheduled/document ed in this visit HH - Focus of Care and Teaching Disciplines: All Active Home Health Disciplines w/RD 03/15/2025 Active 1 goal linked to scheduled/document ed intervention 1 goal intervention scheduled/document ed in this visit HH - Emergency Planning - Knowledge of Disciplines: All Active Home Health Disciplines 03/15/2025 Active 1 goal linked to scheduled/document ed intervention 2 goal interventions scheduled/document ed in this visit HH - Standard of Care Disciplines: All Active Home Health Disciplines 03/15/2025 Active 1 goal linked to scheduled/document ed intervention 2 goal interventions scheduled/document ed in this visit HH - Wound Disciplines: All Active Home Health Disciplines 03/15/2025 Active 1 goal linked to scheduled/document ed intervention 1 goal intervention scheduled/document ed in this visit Goals Goal Associated Problem Outcome Goal Met? Visit Notes HH - Safe medication management, avoid unnecessary harm related to medication errors and/or interactions HH - Medication Management No HH - Communication and collaboration to achieve patient goals - Focus of Care and Teaching No HH - Knowledge of options for managing care in the event of an emergency related situation. HH - Emergency Planning - Knowledge of No HH - Achieve care management for a safe to home/community discharge from homecare HH - Standard of Care No HH - Demonstrate/verbalize wound care management, wound/lesion will be free from complications HH - Wound No Interventions Intervention Associated Problem/Goal Status Variance Visit Notes HH - I/E medication management: administration, purpose, dosages, preparation, setup, scheduling, side effects, food/drug interactions, and potential complications as indicated Description: Update patient's copy of medication list as needed. Problem:HH - Medication Management Goal: - Safe medication management, avoid unnecessary harm related to medication errors and/or interactions Completed - Complete medication review every visit and medication reconciliation as indicated. Pharmacy information: Description: review at each visit Problem:HH - Medication Management Goal: - Safe medication management, avoid unnecessary harm related to medication errors and/or interactions Completed - Focus of care, teaching completed and plan for next visit Problem:HH - Focus of Care and Teaching Goal:HH - Communication and collaboration to achieve patient goals Completed Primary Clinical Focus this Visit & Instruction Provided: s/p Panniculectomy 03/13/25 with willem drain Instruction Provided to: patient Response to Instruction/Teaching: Is partially able to teach back topic verbally . Plan for Next Visit Specific Focus & Education Needed: pna dvt prevention, woundcare New Orders: started vna Updated Discharge Plan: to d/c when ind with care and willem drain has been removed Tiff is an alert and very pleasant 49 y/o female who is signing on to services today after s/p panniculectomy 03/13/25 with willem drain placement VS are wnl pt denies pain but reports some discomfort with movement 10/07 sent home with Tylenol prn eating as instructed with protein shake supplement hs gastric sleeve I removed all dressings and xeroform to panniculectomy incisions along with umbilicus creation and willem insertion site photos and update sent to surgeon, Anita Hurd, at his request tolerated dsg changes well, reapplied abd binder snugly education provided on calf pump exercises for DVT prevention, deep breathing with some light coughing ( with splinting ) for pna prevention has supportive spouse and children overall doing very well encouraged Tiff to call us with any needs or questions will see again tomorrow sn 4x1 then 3x7 supplies in home HH - I/E management of care in an urgent or emergency (ER) situation: When to call your Home Care Team/911, ER plans, supplies, evacuation, when to contact local ER officials and how to stay informed Problem:HH - Emergency Planning - Knowledge of Goal:HH - Knowledge of options for managing care in the event of an emergency related situation. Completed HH - Emergency planning assessment: the emergency plan, supplies needed, emergency contact numbers and an evacuation plan were reviewed Description: Patient is/are knowledgeable of emergency plans. Problem:HH - Emergency Planning - Knowledge of Goal:HH - Knowledge of options for managing care in the event of an emergency related situation. Completed HH - Assess vital signs, pulse oximetry, pain, and as indicated, orthostatic vital signs Description: use agency-specific parameters Problem:HH - Standard of Care Goal:HH - Achieve care management for a safe to home/community discharge from homecare Completed HH - Assess skin integrity Problem:HH - Standard of Care Goal:HH - Achieve care management for a safe to home/community discharge from homecare Completed HH - Assess wounds/lesions/garcia Description: panniculectomy incision, willem drain and umbilicus Problem:HH - Wound Goal:HH - Demonstrate/verbalize wound care management, wound/lesion will be free from complications Completed documented in this encounter Care Teams Oil Well Perforator Operator Relationship Specialty Start Date End Date Maribell Malone DO [address] [place] [address] [email or web address] PCP - General Family Medicine 03/14/24 documented as of this encounter Additional Source Comments The information contained in this document represents components of the legal health record. It is not the complete legal health record.[facility]
--- NOTE | 2025-03-20 10:25 | MHC.OFFVISWM ---
VS Expanded 03/20/25 10:56 BP 114/66 Blood Pressure Location Rt brachial Blood Pressure Position Sitting Pulse 76 Pulse Source Pulse Oximeter Temp 97.6 F Temperature Source Temporal Artery Scan Pulse Oximetry 96 Oxygen Delivery Method Room Air Height 5 ft 5 in Weight 155 lb 9.6 oz BMI 25.9 Body Fat % 28.2 Body Fat Mass 43.8 Fat Free Mass 111.6 Visceral Fat Rating 5.0 Body Water % 51.2 Body Water Mass 79.6 Muscle Mass/Score 105.8 Basal Metabolic Rate/Score 1,489 Intake Visit Reasons: (OV) PO Panniculectomy 03/13/25 Allergies No Known Allergies Allergy (Verified 03/20/25 10:57) HPI Comments Details: Pleasant 49-year-old female returns to the office today in follow-up. She is 1 week post panniculectomy performed on 03/13/2025. She continues antibiotics and following the meal plan as directed by Dr. Howard. She is having 20-30 mL of serosanguineous fluid from the collection bulb. She does complain of some right hip pain with flexion although slowly improving. Describes it as an ache [facility] History Head injury Obesity GERD (gastroesophageal reflux disease) PTSD (post-traumatic stress disorder) Depression History of positive PPD BMI 39.0-39.9,adult H. pylori infection Vitamin B12 deficiency Vitamin D deficiency Back pain Hyperlipidemia Morbid obesity Surgical History (Updated 03/20/25 @ 10:57 by Brittany Shane CMA) S/P panniculectomy History of sleeve gastrectomy Hx of foot surgery Hx of section History of surgery on lower extremity Hx of oral surgery Family History Sister Hypertension Obesity Daughter No problems noted. Son No problems noted. 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 primary urgent care technician to a significant other at home: No Do you presently have visiting nurse or other home services: No Alcohol intake: current Alcohol intake frequency: a few times a week Patient Tobacco Use Status: Former Tobacco user Tobacco use type: Cigarette Physical Exam Skin Other: Transverse and umbilical incisions healing nicely. Mild bruising in the right groin. Assessment & Plan Assessment & Plan (1) S/P panniculectomy: Code(s): Z98.890 - Other specified postprocedural states Category: Surgical Plan: Continue antibiotics Continue wound care Continue monitoring drain output Continue meal plan Return to clinic 1 week
[2025-03-20 10:56] VITALS: BP 114/66; PULSE 76; TEMP 36.4; O2SAT 96; BMI 25.9
--- OUTSIDE RECORDS SUMMARY | 2025-03-20 11:52 | XMS_ITS | Clinical Summary ---
Author Organization [facility] Address [address] [place] [address] Care Team Providers Care Front Desk Administrator Name Role Phone Solitario Montoya MD Primary Care Provider [phone] Allergies No known active allergies Medications atorvastatin [...] Genital herpes DX:Genital herpe s Suicide attempt ([facility] V24 , [facility] V28) DX:Suicide attempt ([facility]);COM MENT:MULTI TIMES WHEN SHE WAS [...] (08/07/2020) Pathologist [facility] HIV Screening Abstracted Historical Provider HEALTH MAINTENANCE [...] on 09/28/2017 4:28 PM. Workstation Name - [id number] Procedure Note Magno Mccloud MD - 07/20/2022 [...] MD on 09/28/2017 4:28 PM.Workstation Name - [id number] Solitario Montoya MD IMG BI PROCEDURES Final Result from Last 3 Months or Most Recently Relevant to Health Maintenance Care Teams Front Desk Administrator Relationship Specialty Start Date End Date Solitario Montoya MD [address] [place] [id number] PCP - General Internal Medicine 08/17/17
--- OUTSIDE RECORDS SUMMARY | 2025-03-20 11:52 | XMS_ITS | Clinical Summary ---
Author Organization [facility] Address [address] [place] [address] Care Team Providers Care Blender Conveyor Operator Name Role Phone Solitario Montoya MD [...] age to complete this topic Care Teams Blender Conveyor Operator Relationship Specialty Start Date End Date Solitario Montoya MD PCP - General Internal Medicine 08/17/17
== END 2025-03-20 10:55 | disposition home or self-care (01) ==
LOC: HO.HBS 10:22
PROVIDERS: PCP Family Medicine; Visit Provider Physician Assistant Surgical
DX: Z98.890 Other specified postprocedural states (principal)
CPT/HCPCS: 99024

== ENCOUNTER 2025-03-27 10:02 | Outpatient (AMB) | payer OTHER, SELFPAY ==
--- OUTSIDE RECORDS SUMMARY | 2025-03-15 02:00 | XMS_ITS | Encounter Summary ---
Author Organization [facility] Address [address] [facility] [address] [place] [address] Phone Care Team Providers Care Social Insurance Specialist Name Role Phone Maribell Malone DO Primary Care Provider + [phone] Reason for Visit * Auth/Cert (Routine) Specialty Diagnoses / Procedures Referred By Matthew t Referred To Contact Referral ID Status Reason Start Date Expiration Date Visits Re quested Visits Authorized [id number] 1 1 Encounter Details Date Type Department Care Team (Late st Contact Info) Description 03/15/2025 2:00 AM EDT Home Care Visit [facility] [address] [place] [phone] Tamika Mcduffie RN [address] [place] [address] [email or web address] SN OASIS START OF CARE (SOC) Social [...] Care Team (Late st Contact Info) Description 03/28/2025 12:30 AM EDT Home Care Visit [facility] [address] [place] [address] Emeli Cm RN [address] [place] [address] [email or web address] 03/31/2025 1:30 AM EDT Home Care Visit [facility] [address] [place] [address] Emeli Cm RN [address] [place] [address] [email or web address] 04/02/2025 1:30 AM EDT Home Care Visit [facility] [address] [place] [address] Emeli Cm RN [address] [place] [address] [email or web address] 04/04/2025 1:00 AM EDT Home Care Visit [facility] [address] [place] [address] Emeli Cm RN [address] [place] [address] [email or web address] 04/07/2025 1:30 AM EDT Home Care Visit [facility] [address] [place] [phone] Emeli Cm, LEI [address] [place] [address] 04/09/2025 Home Care Visit [facility] [address] [place] [phone] Emeli Cm RN [address] [place] [address] [email or web address] 04/11/2025 1:00 AM EDT Home Care Visit [facility] [address] [place] [phone] Emeli Cm RN [address] [place] [address] [email or web address] 04/14/2025 1:30 AM EDT Home Care Visit [facility] [address] [place] [phone] Emeli Cm, LEI [address] [place] [address] 04/16/2025 1:00 AM EDT Home Care Visit [facility] [address] [place] [phone] Emeli Cm RN [address] [place] [address] [email or web address] 04/18/2025 12:30 AM EDT Home Care Visit [facility] [address] [place] [phone] Emeli Cm, LEI [address] [place] [address] 04/21/2025 1:30 AM EDT Home Care Visit [facility] [address] [place] [phone] Emeli Cm, LEI [address] [place] [address] [email or web address] 04/23/2025 1:00 AM EDT Home Care Visit [facility] [address] [place] [phone] Emeli Cm RN [address] [place] [address] [email or web address] 04/25/2025 12:30 AM EDT Home Care Visit [facility] [address] [place] [phone] Emeli Cm RN [address] [place] [address] [email or web address] 04/28/2025 1:30 AM EDT Home Care Visit [facility] [address] [place] [phone] Emeli Cm, LEI [address] [place] [address] [email or web address] 04/30/2025 12:30 AM EDT Home Care Visit [facility] [address] [place] [phone] Tamika Mcduffie RN [address] [place] [address] 05/02/2025 Home Care Visit [facility] [address] [place] [phone] Emeli Cm RN [address] [place] [address] [email or web address] 05/05/2025 12:30 AM EDT Home Care Visit [facility] [address] [place] [address] Emeli Cm RN [address] [place] [address] [email or web address] 05/07/2025 Home Care Visit [facility] [address] [place], [place] [phone] Emeli Cm RN [address] [place] [address] [email or web address] 05/09/2025 12:30 AM EDT Home Care Visit [facility] [address] [place], [place] [phone] Emeli Cm RN [address] [place] [address] [email or web address] 05/12/2025 Home Care Visit [facility] [address] [place] [address] Emeli Cm RN [address] [place] [address] [email or web address] documented as of this encounter Visit Diagnoses Not on filedocumented in this encounter Home Health Visit - Care Plan Visit Details Visit Type -SN OASIS START O F CARE (SOC) Discipline -Detention Problems Problem Description Start Date Status Goals [...] Communication and collaboration to achieve patient goals HH - Focus of Care and Teaching No [...] patient's copy of medication list as needed. Problem: - Medication Management Goal:HH - Safe medication management, avoid unnecessary harm related to medication errors and/or interactions Completed HH - Complete medication review every visit and medication reconciliation as indicated. Pharmacy information: Description: review at each visit Problem: - Medication Management Goal:HH - Safe medication management, avoid unnecessary harm related to medication errors and/or interactions Completed HH - Focus of care, teaching completed and plan for next visit Problem: - Focus of Care and Teaching Goal: - Communication and collaboration to achieve patient [...] situation: When to call your Home Care Team/91, ER plans, supplies, evacuation, when to contact [...] Description: panniculectomy incision, willem drain and umbilicus Problem: - Wound Goal:HH - Demonstrate/verbalize wound care management, wound/lesion will be free from complications Completed documented in this encounter Care Teams Social Insurance Specialist Relationship Specialty Start Date End Date Maribell Maloen DO [address] [place] [address] [email or web address] PCP - General Family Medicine 03/14/24 documented as of this encounter Additional Source Comments The information contained in this document represents components of the legal health record. It is not the complete legal health record.[facility]
--- OUTSIDE RECORDS SUMMARY | 2025-03-24 10:00 | XMS_ITS | Encounter Summary ---
Author Organization [facility] Address [address] [facility] [address] [place] [address] Phone Care Team Providers Care Counselor Supervisor Name Role Phone Maribell Malone DO Primary Care Provider + [phone] Reason for Visit * Auth/Cert (Routine) Specialty Diagnoses / Procedures Referred By Matthew t Referred To Contact Referral ID Status Reason Start Date Expiration Date Visits Re quested Visits Authorized [id number] 1 1 Encounter Details Date Type Department Care Team (Late st Contact Info) Description 03/24/2025 10:00 AM EDT Home Care Visit [facility] [address] [place] [phone] Emeli Cm, LEI [address] [place] [address] [email or web address] SN HOME VISIT Social History Tobacco Use Types Packs/Day Years [...] Sign Reading Time Taken Comments Blood Pressure 100/62 03/24/2025 10:10 AM EDT Pulse 64 03/24/2025 10:10 AM EDT Temperature 36.4 C (97.6 F) 03/24/2025 10:10 AM EDT Respiratory Rate 14 03/24/2025 10:10 AM EDT Oxygen Saturation 99% 03/24/2025 10:10 AM EDT Inhaled Oxygen Concentration - - Weight - - Height - - Body Mass Index - - documented in this encounter Plan of Treatment Upcoming Encounters Date Type Department Care Team (Late st Contact Info) Description 03/28/2025 12:30 AM EDT Home Care Visit [facility] [address] [place] [address] Emeli Cm RN [address] [place] [address] [email or web address] 03/31/2025 1:30 AM EDT Home Care Visit [facility] [address] [place] [address] Emeli Cm RN [address] [place] [address] [email or web address] 04/02/2025 1:30 AM EDT Home Care Visit [facility] [address] [place] [address] Emeli Cm RN [address] [place] [address] [email or web address] 04/04/2025 1:00 AM EDT Home Care Visit [facility] [address] [place] [address] Emeli Cm RN [address] [place] [address] 04/07/2025 1:30 AM EDT Home Care Visit [facility] [address] [place] [phone] Emeli Cm, LEI [address] [place] [address] 04/09/2025 Home Care Visit [facility] [address] [place] [phone] Emeli Cm, LEI [address] [place] [address] [email or web address] 04/11/2025 1:00 AM EDT Home Care Visit [facility] [address] [place] [phone] Emeli Cm RN [address] [place] [address] [email or web address] 04/14/2025 1:30 AM EDT Home Care Visit [facility] [address] [place] [phone] Emeli Cm, LEI [address] [place] [address] 04/16/2025 1:00 AM EDT Home Care Visit [facility] [address] [place] [phone] Emeli Cm, LEI [address] [place] [address] 04/18/2025 12:30 AM EDT Home Care Visit [facility] [address] [place] [phone] Emeli Cm RN [address] [place] [address] 04/21/2025 1:30 AM EDT Home Care Visit [facility] [address] [place] [phone] Emeli Cm, LEI [address] [place] [address] [email or web address] 04/23/2025 1:00 AM EDT Home Care Visit [facility] [address] [place] [phone] Emeli Cm RN [address] [place] [address] [email or web address] 04/25/2025 12:30 AM EDT Home Care Visit [facility] [address] [place] [phone] Emeli Cm RN [address] [place] [address] [email or web address] 04/28/2025 1:30 AM EDT Home Care Visit [facility] [address] [place] [phone] Emeli Cm RN [address] [place] [address] [email or web address] 04/30/2025 12:30 AM EDT Home Care Visit [facility] [address] [place] [phone] Tamika Mcduffie RN [address] [place] [address] 05/02/2025 Home Care Visit [facility] [address] [place] [phone] Emeli Cm RN [address] [place] [address] [email or web address] 05/05/2025 12:30 AM EDT Home Care Visit [facility] [address] [place] [phone] Emeli Cm RN [address] [place] [address] [email or web address] 05/07/2025 Home Care Visit [facility] [address], [place] [phone] Emeli Cm RN [address] [place] [address] [email or web address] 05/09/2025 12:30 AM EDT Home Care Visit [facility] [address], [place] [phone] Emeli Cm RN [address] [place] [address] [email or web address] 05/12/2025 Home Care Visit [facility] [address] [place] [address] Emeli Cm RN [address] [place] [address] documented as of this encounter Visit Diagnoses Not on filedocumented in this encounter Home Health Visit - Care Plan Visit Details Visit Type -SN HOME VISIT Discipline -Assisted Problems Problem Description Start Date Status Goals [...] scheduled/document ed in this visit HH - Infection - Actual or Risk of Disciplines: All Active Home Health Disciplines [...] scheduled/document ed in this visit HH - Drain Disciplines: All Active Home Health Disciplines 03/15/2025 Active 1 goal linked to scheduled/document ed intervention 2 goal interventions scheduled/document ed in this visit Goals Goal [...] Planning - Knowledge of No HH - Patient will have no new infection; any new infection that occurs will be identified and treated promptly; existing infection will resolve without complication Description: Patient and caregiver(s) will demonstrate understanding of infection prevention, monitoring, and treatment as appropriate HH - Infection - Actual or Risk of No HH - Achieve care management for a safe to home/community discharge from homecare HH - Standard of Care No HH - Demonstrate/verbalize wound care management, wound/lesion will be free from complications HH - Wound No HH - Demonstrate/verbalize drain management, drain will be free from complications HH - Drain No Interventions Intervention Associated Problem/Goal Status Variance Visit Notes HH - I/E medication management: administration, purpose, dosages, preparation, setup, scheduling, side effects, food/drug interactions, and potential complications as indicated Description: Update patient's copy of medication list as needed. Problem:HH - Medication Management Goal:HH - Safe medication management, avoid unnecessary harm related to medication errors and/or interactions Completed HH - Complete medication review every visit and medication reconciliation as indicated. Pharmacy information: Description: review at each visit Problem:HH - Medication Management Goal:HH - Safe medication management, avoid unnecessary harm related to medication errors and/or interactions Completed HH - Focus of care, teaching completed and plan for next visit Problem:HH - Focus of Care and Teaching Goal:HH - Communication and collaboration to achieve patient goals Completed Primary Clinical Focus this Visit & Instruction Provided: SNV for surgical site dressing change and assessment. no signs of infection noted. scant amount of drainage on xeroform noted. images obtained and pt will send to her surgeon. pt has f/u this with him again. denies any pain. eating well. c/o some episodes of diarrhea but reports not laxative use still. pts 24hr output of drain yesterday was 7mLs but still remains dark red in color. drain site is pink and free of infection. I/E s/s infection and when to seek emergent care/call VNA. Instruction Provided to: patient Response to Instruction/Teachin g: Is partially able to teach back topics as evidenced by verbal recall. Plan for Next Visit Specific Focus & Education Needed: surgical site New Orders: NA Updated Discharge Plan: when the pt/cg can manage surgical assessments ind and know what to report to providers - I/E management of care in an urgent or emergency (ER) situation: When to call your Home Care Team/911, ER plans, supplies, evacuation, when to contact local ER officials and how to stay informed Problem: - Emergency Planning - Knowledge of Goal:HH - Knowledge of options for managing care in the event of an emergency related situation. Completed - Emergency planning assessment: the emergency plan, supplies needed, emergency contact numbers and an evacuation plan were reviewed Description: Patient is/are knowledgeable of emergency plans. Problem:HH - Emergency Planning - Knowledge of Goal:HH - Knowledge of options for managing care in the event of an emergency related situation. Completed - I/E infection Description: infection prevention measures and s/s of infection Problem: - Infection - Actual or Risk of Goal:HH - Patient will have no new infection; any new infection that occurs will be identified and treated promptly; existing infection will resolve without complication Completed - Assess infection risk and s/s Problem:HH - Infection - Actual or Risk of Goal:HH - Patient will have no new infection; any new infection that occurs will be identified and treated promptly; existing infection will resolve without complication Completed - Assess vital signs, pulse oximetry, pain, and as indicated, orthostatic vital signs Description: use agency-specific parameters Problem: - Standard of Care Goal: - Achieve care management for a safe to home/community discharge from homecare Completed - Assess skin integrity Problem: - Standard of Care Goal:HH - Achieve care management for a safe to home/community discharge from homecare Completed HH - Assess wounds/lesions/garcia Description: panniculectomy incision, willem drain and umbilicus Problem: - Wound Goal:HH - Demonstrate/verbalize wound care management, wound/lesion will be free from complications Completed HH - Drain Care: Description: WILLEM drain SN/CG to change split gauze daily and prn for drainage Patient to empty and measure output daily Problem:HH - Drain Goal:HH - Demonstrate/verbalize drain management, drain will be free from complications Completed HH - Assess drain(s) for integrity, patency, signs of infection, drainage amount and color Problem:HH - Drain Goal:HH - Demonstrate/verbalize drain management, drain will be free from complications Completed documented in this encounter Care Teams Counselor Supervisor Relationship Specialty Start Date End Date Maribell Malone DO [address] [place] [phone] PCP - General Family Medicine 03/14/24 documented as of this encounter Additional Source Comments The information contained in this document represents components of the legal health record. It is not the complete legal health record.[facility]
--- OUTSIDE RECORDS SUMMARY | 2025-03-26 09:15 | XMS_ITS | Encounter Summary ---
Author Organization [facility] Address [address] [facility] [address] [place] [address] Phone Care Team Providers Care Sales Representative Business Courses Name Role Phone Maribell Malone DO Primary Care Provider + [phone] Reason for Visit * Auth/Cert (Routine) Specialty Diagnoses / Procedures Referred By Matthew t Referred To Contact Referral ID Status Reason Start Date Expiration Date Visits Re quested Visits Authorized [id number] 1 1 Encounter Details Date Type Department Care Team (Late st Contact Info) Description 03/26/2025 9:15 AM EDT Home Care Visit [facility] [address] [place] [phone] Emeli Cm, LEI [address] [place] [address] [email or web address] SN HOME VISIT Social History Tobacco Use [...] Sign Reading Time Taken Comments Blood Pressure 112/68 03/26/2025 9:25 AM EDT Pulse 56 03/26/2025 9:25 AM EDT Temperature 36.2 C (97.2 F) 03/26/2025 9:25 AM EDT Respiratory Rate 16 03/26/2025 9:25 AM EDT Oxygen Saturation 98% 03/26/2025 9:25 AM EDT Inhaled Oxygen Concentration - - Weight - - Height - - Body Mass Index - - documented in this encounter Plan of Treatment Upcoming Encounters Date Type Department Care Team (Late st Contact Info) Description 03/28/2025 12:30 AM EDT Home Care Visit [facility] [address] [place] [address] Emeli Cm RN [address] [place] [phone] 03/31/2025 1:30 AM EDT Home Care Visit [facility] [address] [place] [address] Emeli Cm RN [address] [place] [address] 04/02/2025 1:30 AM EDT Home Care Visit [facility] [address] [place] [address] Emeli Cm RN [address] [place] [address] 04/04/2025 1:00 AM EDT Home Care Visit [facility] [address] [place] [address] Emeli Cm RN [address] [place] [address] 04/07/2025 1:30 AM EDT Home Care Visit [facility] [address] [place] [phone] Emeli Cm, LEI [address] [place] [address] 04/09/2025 Home Care Visit [facility] [address] [place] [phone] Emeli Cm, LEI [address] [place] [address] 04/11/2025 1:00 AM EDT Home Care Visit [facility] [address] [place] [phone] Emeli Cm RN [address] [place] [address] 04/14/2025 1:30 AM EDT Home Care Visit [facility] [address] [place] [phone] Emeli Cm, LEI [address] [place] [address] 04/16/2025 1:00 AM EDT Home Care Visit [facility] [address] [place] [phone] Emeli Cm, LEI [address] [place] [address] 04/18/2025 12:30 AM EDT Home Care Visit [facility] [address] [place] [phone] Emeli Cm RN [address] [place] [address] 04/21/2025 1:30 AM EDT Home Care Visit [facility] [address] [place] [phone] Emeli Cm, LEI [address] [place] [address] 04/23/2025 1:00 AM EDT Home Care Visit [facility] [address] [place] [phone] Emeli Cm RN [address] [place] [address] 04/25/2025 12:30 AM EDT Home Care Visit [facility] [address] [place] [phone] Emeli Cm RN [address] [place] [address] 04/28/2025 1:30 AM EDT Home Care Visit [facility] [address] [place] [phone] Emlei Cm RN [address] [place] [address] 04/30/2025 12:30 AM EDT Home Care Visit [facility] [address] [place] [phone] Tamika Mcduffie RN [address] [place] [address] 05/02/2025 Home Care Visit [facility] [address] [place] [phone] Emeli Cm RN [address] [place] [address] 05/05/2025 12:30 AM EDT Home Care Visit [facility] [address] [place] [phone] Emeli Cm RN [address] [place] [address] 05/07/2025 Home Care Visit [facility] [address] [place], [place] [phone] Emeli Cm RN [address] [place] [address] 05/09/2025 12:30 AM EDT Home Care Visit [facility] [address] [place], [place] [phone] Emeli Cm RN [address] [place] [address] 05/12/2025 Home Care Visit [facility] [address] [place] [address] Emeli Cm RN [address] [place] [address] [email or web address] documented as of this encounter Visit Diagnoses Not on filedocumented in this encounter Home Health Visit - Care Plan Visit Details Visit Type -SN HOME VISIT Discipline -Usp Problems Problem Description Start Date Status Goals [...] 1 goal linked to scheduled/document ed intervention 3 goal interventions scheduled/document ed in this visit [...] Problem: - Focus of Care and Teaching Goal:HH - Communication and collaboration to achieve patient goals Completed Primary Clinical Focus this Visit & Instruction Provided: SNV for wound care. pt tolerated well. no signs of infection. 2 steri strips fell off, replaced with new steri strips per surgeons order. pt denies any pain. continues to have diarrhea but remains on antibotic until surgeon says to stop. SN suggested a probiotic. no falls. eating and drinking well. no edema noted. I/E when to call VNA, 911, and PCP. Instruction Provided to: patient Response to Instruction/Teachin g: Is partially able to teach back topics as evidenced by verbal recall. Plan for Next Visit Specific Focus & Education Needed: wound care New Orders: NA Updated Discharge Plan: when the pts cg can manage wound care ind HH - I/E management of care in [...] infection prevention measures and s/s of infection Problem:HH - Infection - Actual or Risk [...] homecare Completed HH - Assess skin integrity Problem: - Standard of Care Goal:HH - Achieve care management for a safe to home/community discharge from homecare Completed HH - Assess safety needs of patient (other than falls) Problem: - Standard of Care Goal:HH - Achieve care management for a safe to home/community discharge from homecare Completed - Assess wounds/lesions/garcia Description: panniculectomy incision, willem drain and umbilicus Problem: - Wound Goal:HH - Demonstrate/verbalize wound care management, wound/lesion will be free from complications Completed - Wound care: Description: SN/CG to apply xeroform to panniculectomy and umbilicus incisions, cover with thick amount of 4x4, abd pads, tape with kerlix and secure with abd binder daily and prn until further instructed Change split gauze to WILLEM drain site daily and prn for strike through Problem:HH - Wound Goal:HH - Demonstrate/verbalize wound [...] Completed documented in this encounter Care Teams Sales Representative Business Courses Relationship Specialty Start Date End Date Maribell Malone DO [address] [place] [address] [email or web address] PCP - General Family Medicine 03/14/24 documented as of this encounter Additional Source Comments The information contained in this document represents components of the legal health record. It is not the complete legal health record.[facility]
--- NOTE | 2025-03-27 10:13 | A.OFFVIS_ITS ---
VS Expanded 03/27/25 10:23 BP 107/60 Blood Pressure Location Rt brachial Blood Pressure Position Sitting Pulse 63 Pulse Source Pulse Oximeter Temp 97.5 F Temperature Source Temporal Artery Scan Pulse Oximetry 98 Oxygen Delivery Method Room Air Height 5 ft 5 in Weight 159 lb 9.6 oz BMI 26.6 Body Fat % 27.8 Body Fat Mass 44.4 Fat Free Mass 115.0 Visceral Fat Rating 5.0 Body Water % 51.3 Body Water Mass 35.8 Muscle Mass/Score 109.4 Basal Metabolic Rate/Score 1,533 Intake Visit Reasons: (OV) PO Panniculectomy 03/13/25 Allergies No Known Allergies Allergy (Verified 03/27/25 10:17) HPI Comments Details: Patient is a pleasant 49-year-old female who returns to the office today in follow-up. She is status post panniculectomy approximately 2 weeks ago on 03/13/2025. She states that she is doing very well. Continues taking the antibiotics and following the meal plan. She is tracking fluid output via the EMIGDIO drain, around 20 mL per day. Fluid consistency is serosanguineous. No complaints. [facility] Medical History Head injury Obesity GERD (gastroesophageal reflux disease) PTSD (post-traumatic stress disorder) Depression History of positive PPD BMI 39.0-39.9,adult H. pylori infection Vitamin B12 deficiency Vitamin D deficiency Back pain Hyperlipidemia Morbid obesity Surgical History S/P panniculectomy History of sleeve gastrectomy Hx of foot surgery Hx of section History of surgery on lower extremity Hx of oral surgery Family History Sister Hypertension Obesity Daughter No problems noted. Son No problems noted. 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 primary director of health care marketing to a significant other at home: No Do you presently have visiting nurse or other home services: No Alcohol intake: current Alcohol intake frequency: a few times a week Patient Tobacco Use Status: Former Tobacco user Tobacco use type: Cigarette Physical Exam Vital Signs: Last Vital Signs Temp 97.5 F 03/27/25 10:23 Pulse 63 03/27/25 10:23 BP 107/60 03/27/25 10:23 Pulse Ox 98 03/27/25 10:23 Oxygen Delivery Method Room Air 03/27/25 10:23 BMI result Body Mass Index 26.6 Skin Other: Healing transverse and umbilical incisions. Umbilicus viable. Assessment & Plan Assessment & Plan (1) S/P panniculectomy: Code(s): Z98.890 - Other specified postprocedural states Category: Surgical Plan: Patient is doing very well, status post panniculectomy. Encouraged to continue antibiotics, dressing changes and monitoring drain output. Continue meal plan as directed. Return to clinic 1 week.
[2025-03-27 10:23] VITALS: BP 107/60; PULSE 63; TEMP 36.4; O2SAT 98; BMI 26.6
--- OUTSIDE RECORDS SUMMARY | 2025-03-27 11:16 | XMS_ITS | Encounter Summary ---
Author Organization [facility] Address [address] [place] [phone] Phone Care Team Providers Care Cocoa Mill Operator Name Role Phone Malone, Maribell Rocha DO Primary Care Provider + [phone] Encounter Details Date Type Department Care Team (Late st Contact Info) Description 03/26/2025 Episode Documentatio n Update [facility] [address] [place], [place] [phone] Daysi Godoy [address] [place] [address] [email or web address] Social History Tobacco Use Types Packs/Day Years [...] on file documented as of this encounter Plan of Treatment Upcoming Encounters Date Type Department Care Team (Late st Contact Info) Description 03/28/2025 12:30 AM EDT Home Care Visit [facility] [address] [place] [phone] Emeli Cm, LEI [address] [place] [address] [email or web address] 03/31/2025 1:30 AM EDT Home Care Visit [facility] [address] [place] [phone] Emeli Cm RN [address] [place] [address] [email or web address] 04/02/2025 1:30 AM EDT Home Care Visit [facility] [address] [place] [phone] Emeli Cm RN [address] [place] [address] [email or web address] 04/04/2025 1:00 AM EDT Home Care Visit [facility] [address] [place] [phone] Emeli Cm, LEI [address] [place] [address] [email or web address] 04/07/2025 1:30 AM EDT Home Care Visit [facility] [address] [place] [phone] Emeli Cm RN [address] [place] [address] [email or web address] 04/09/2025 Home Care Visit [facility] [address] [place] [phone] Emeli Cm RN [address] [place] [address] [email or web address] 04/11/2025 1:00 AM EDT Home [facility] Visit [facility] [address] [place] [phone] Emeli Cm RN [address] [place] [address] [email or web address] 04/14/2025 1:30 AM EDT Home [facility] Visit [facility] [address] [place] [phone] Emeli Cm RN [address] [place] [address] 04/16/2025 1:00 AM EDT Home Care Visit [facility] [address] [place] [phone] Emeli Cm RN [address] [place] [address] [email or web address] 04/18/2025 12:30 AM EDT Home Care Visit [facility] [address] [place] [phone] Emeli Cm RN [address] [place] [address] [email or web address] 04/21/2025 1:30 AM EDT Home [facility] Visit [facility] [address] [place] [phone] Emeli Cm RN [address] [place] [address] [email or web address] 04/23/2025 1:00 AM EDT Home Care Visit [facility] [address] [place] [phone] Emeli Cm RN [address] [place] [address] [email or web address] 04/25/2025 12:30 AM EDT Home [facility] Visit [facility] [address] [place] [phone] Emeli Cm, LEI [address] [place] [address] [email or web address] 04/28/2025 1:30 AM EDT Home Care Visit [facility] [address] [place] [phone] Emeli Cm, LEI [address] [place] [address] [email or web address] 04/30/2025 12:30 AM EDT Home Care Visit [facility] [address] [place] [phone] Tamika Mcduffie RN [address] [place] [address] 05/02/2025 Home Care Visit [facility] [address] [place] [address] Emeli Cm, LEI [address] [place] [address] [email or web address] 05/05/2025 12:30 AM EDT Home [facility] Visit [facility] [address] [place] [address] Emeli Cm, RN [address] [place] [address] [email or web address] 05/07/2025 Home Care Visit [facility] [address] [place] [phone] Emeli Cm, LEI [address] [place] [address] [email or web address] 05/09/2025 12:30 AM EDT Home [facility] Visit [facility] [address] [place] [phone] Emeli Cm, LEI [address] [place] [address] 05/12/2025 Home Care Visit [facility] [address] [place] [phone] Emeli Cm RN [address] [place] [address] documented as of this encounter Visit Diagnoses Not on filedocumented in this encounter Care Teams Cocoa Mill Operator Relationship Specialty Start Date End Date Maribell Malone DO [address] [place] [phone] PCP - General Family Medicine 03/14/24 documented as of this encounter Additional Source Comments The information contained in this document represents components of the legal health record. It is not the complete legal health record.[facility]
--- OUTSIDE RECORDS SUMMARY | 2025-03-27 11:16 | XMS_ITS | Clinical Summary ---
Author Organization [facility] Address [address] [place] [address] Care Team Providers Care Grounds Maintenance Manager Name Role Phone Solitario Montoya MD [...] age to complete this topic Care Teams Grounds Maintenance Manager Relationship Specialty Start Date End Date Solitario Montoya MD PCP - General Internal Medicine 08/17/17
--- OUTSIDE RECORDS SUMMARY | 2025-03-27 11:16 | XMS_ITS | Clinical Summary ---
Author Organization [facility] Address [address] [place] [phone] Phone Care Team Providers Care Aeronautical Test Engineer Name Role Phone Maribell Malone Primary Care Provider [phone] Allergies No known active allergies Medications oxyCODONE-aceta minophen (PERCOCET) 5-325 mg per tablet Take 1 tablet by mouth every 4 (four) hours as needed for pain (specific location in comments). Partial fill ok 30 tablet 03/26/2024 Active cephalexin (KEFLEX) 500 MG capsule Take 500 mg by mouth 2 (two) times a day. 03/15/2025 Active docusate sodium (COLACE) 100 MG capsule Take 100 mg by mouth daily. 03/15/2025 Active Active Problems No known active problems Encounters Date Type Department Care Team Description 03/26/2025 9:15 AM EDT Home [facility] Visit [facility] [address] [place], [place] [phone] Emeli Cm RN SN HOME VISIT 03/26/2025 Episode Documentatio n Update [facility] [address] [place], [place] [phone] Daysi Godoy 03/24/2025 10:00 AM EDT Home Care Visit [facility] [address] [place], [place] [phone] Emeli Cm, LEI SN HOME VISIT 03/21/2025 9:15 AM EDT Home [facility] Visit [facility] [address] [place], [place] [phone] Emeli Cm RN SN HOME VISIT 03/19/2025 10:00 AM EDT [facility] [address] [place] [address] Emeli Cm RN SN HOME VISIT 03/17/2025 10:00 AM EDT [facility] Visit [facility] [address] [place] [address] Emeli Cm RN SN HOME VISIT 03/16/2025 1:00 AM EDT Home [facility] Visit [facility] [address] [place] [address] Tamika Mcduffie RN SN HOME VISIT 03/15/2025 2:00 AM EDT Home [facility] Visit [facility] [address] [place] [address] Tamika Mcduffie RN SN OASIS START OF CARE (SOC) 03/15/2025 Plan of Care Documentation [facility] [address] [place] [address] 03/11/2025 Orders Only [facility] [address] [place] [address] Homehealth, Interface ProviderMD from Last 3 Months Social History Tobacco Use Types Packs/Day Years [...] 03/26/2024 6:10 AM EDT Plan of Treatment Upcoming Encounters Date Type Department Care Team (Late st Contact Info) Description 03/28/2025 12:30 AM EDT Home [facility] Visit [facility] [address] [place] [address] Emeli Cm, LEI [address] [place] [address] 03/31/2025 1:30 AM EDT Home [facility] Visit [facility] [address] [place] [address] Emeli Cm RN [address] [place] [address] 04/02/2025 1:30 AM EDT Home [facility] Visit [facility] [address] [place] [address] Emeli Cm RN [address] [place] [address] 04/04/2025 1:00 AM EDT [facility] Visit [facility] [address] [place] [phone] Emeli Cm RN [address] [place] [address] 04/07/2025 1:30 AM EDT Home [facility] Visit [facility] [address] [place] [phone] Emeli Cm RN [address] [place] [address] 04/09/2025 Home [facility] Visit [facility] [address] [place] [phone] Emeli Cm RN [address] [place] [address] 04/11/2025 1:00 AM EDT Home [facility] Visit [facility] [address] [place] [phone] Emeli Cm RN [address] [place] [address] 04/14/2025 1:30 AM EDT Home [facility] Visit [facility] [address] [place] [phone] Emeli Cm RN [address] [place] [address] 04/16/2025 1:00 AM EDT Home [facility] Visit [facility] [address] [place] [phone] Emeli Cm RN [address] [place] [address] 04/18/2025 12:30 AM EDT [facility] Visit [facility] [address] [place] [phone] Emeli Cm, RN [address] [place] [address] 04/21/2025 1:30 AM EDT Home [facility] Visit [facility] [address] [place] [phone] Emeli Cm, RN [address] [place] [address] 04/23/2025 1:00 AM EDT Home [facility] Visit [facility] [address] [place] [phone] Emeli Cm, RN [address] [place] [address] 04/25/2025 12:30 AM EDT Home [facility] Visit [facility] [address] [place] [phone] Emeli Cm, RN [address] [place] [address] 04/28/2025 1:30 AM EDT Home Care Visit [facility] [address] [place] [phone] Emeli Cm, RN [address] [place] [address] 04/30/2025 12:30 AM EDT Home Care Visit [facility] [address] [place] [phone] Tamika Mcduffie, LEI [address] [place] [address] 05/02/2025 Home Care Visit [facility] [address] [place] [phone] Emeli Cm, LEI [address] [place] [address] 05/05/2025 12:30 AM EDT Home Care Visit [facility] [address] [place] [phone] Emeli Cm RN [address] [place] [address] 05/07/2025 Home Care Visit [facility] [address] [place] [phone] Emeli Cm RN [address] [place] [address] 05/09/2025 12:30 AM EDT Home [facility] Visit [facility] [address] [place] [phone] Emeli Cm RN [address] [place] [address] 05/12/2025 Home [facility] Visit [facility] [address] [place] [address] Emeli Cm RN [address] [place] [address] Health Maintenance Due Date Last Done Comments LIPID PANEL 1977 DEPRESSION SCREENING 1989 SMOKING Hx and SMOKELESS TOBACCO SCREENING 1990 HEPATITIS C SCREENING 1995 HIV ONE-TIME SCREENING (18-6 5 YEARS) 1995 SCREENING FOR DIABETES 2012 MAMMOGRAM 2017 COLOGUARD 2022 COLONOSCOPY 2022 COLORECTAL CANCER SCREENING 2022 FIT TEST 2022 FOBT 2022 SIGMOIDOSCOPY 2022 VIRTUAL COLONOSCOPY 2022 COVID-19 VACCINE (2023-2 5 season) 2024 05/17/2022, 09/23/2020, 08/26/2020 INFLUENZA VACCINE (#1) 2025 05/17/2022 PAP SMEAR 03/18/2025 03/18/2022 Adult Td,Tdap Booster [...] this topic Medical Devices Implanted Type Area First Crusher Device Identifier Shelf Expiration Date Model / Serial / Lot Sergio Lea l: Foot Description:Suicide attempt, jumped off a 4 story building. Many hardware both feet ankles legs Mesh Membrane 4x4.5cm Graft Tissue Epifix Allograft Human Amniotic Dehydrated Ambient Square - [id number] Implanted:Qty: 1 on 03/26/2024 by Audrey Coyle DPM at [facility] Right: Foot [employer] 07/31/2028 [id number] / / Description:Tissue id: [id number] Lapiplasty Speedplate 18 X 14 Rapid Compression Implant Implanted:Qty: 1 on 03/26/2024 by Audrey Coyle DPM at [facility] Right: Foot [employer] 11/19/2028 / / [id number] Description:REF:SK51 Lapiplasty Speedplate Quad 28mm Anatomic Compression Implant Implanted:Qty: 1 on 03/26/2024 by Audrey Coyle DPM at [facility] Right: Foot [employer] 09/20/2028 / / [id number] Description:Ref: sk50 Procedures Procedure Name Priority Date/Time Associated Diagnosis Comments PAP TEST Routine 03/18/2022 12:00 AM EDT from Last 3 Months or Most Recently Relevant to Health Maintenance Results * Pap Smear (03/18/2022 12:00 AM EDT) 03/18/2022 03/22/2022 9:4 1 AM EDT Narrative SEE NARRATIVE - 03/24/2022 2:25 PM EDT [address] [address] Research Electrician: Lis Carrillo MD RN ADMISSION Cytology Report FINAL DIAGNOSIS A. PAP SMEAR [...] 52, 56, 58, 59, 66, 68) by Map Dec[employer] HR-HPV analysis. Clinical correlation is advised. This HPV test was performed at [facility], [address] [place] [address]. This test has been FDA approved for SurePath cervical cytology specimens. The accuracy and precision of this test for all other specimen sources has been verified in the Cytopathology Laboratory of the [facility] and has not been cleared or approved by the U.S. Food and Drug Administration. Clinical correlation is advised. CLINICAL HISTORY Date of Last Menstrual Period: 03-10-2022 Other Clinical Conditions: Screening Pap SPECIMEN SOURCE A: PAP SMEAR (SUREPATH) CE Patient Name: MARY CASON : 1975 (Age: 46) Sex: F Institution: [facility] Location: [facility] Date of Collection: 03/18/2022 Date of Reported: 03/24/2022 14:25 Results to: Maribell Malone DO Maribell Malone DO CYTOLOGY ORDERABLES Final Re sult SEE NARRATIVE from Last 3 Months or Most Recently Relevant to Health Maintenance Insurance [employer]MIN[employer]AT[employer] Virtual 3-D Display for Smartphones ADMINISTRATORS [employer]MIN[employer] ADMINISTRAT[employer]MINISTRATORS [employer] B[employer]EF[employer] ADMINISTRATORS [employer] ADMINISTRATORS Virtual 3-D Display for Smartphones ADMINISTRATORS [employer]MINISTRAT[employer] Care Teams Aeronautical Test Engineer Relationship Specialty Start Date End Date Maribell Malone DO [address] [place] [address] [phone] PCP - General Family Medicine 03/14/24 Additional Source Comments The information contained in this document represents components of the legal health record. It is not the complete legal health record.[facility]
--- OUTSIDE RECORDS SUMMARY | 2025-03-27 11:18 | XMS_ITS | Encounter Summary ---
Author Organization [facility] Address [address] [address] Phone Care Team Providers Care Collar Setter Name Role Phone Maribell Malone Aj WEEMS Primary Care Provider [phone] Encounter Details Date Type Department Care Team (Late Contact Info) Description 03/26/2024 Procedure Pass OR Admitting Dept - Virtual Department [address] [place], [place] [phone] Social History Tobacco Use Types Packs/Day Years [...] Encounters Date Type Department Care Team (Late Contact Info) Description 03/28/2025 12:30 AM EDT Home [facility] Visit [facility] [address] [place] [phone] Emeli Cm RN [address] [place], [place] [phone] 03/31/2025 1:30 AM EDT [facility] Visit [facility] [address] [place] [phone] Emeli Cm, LEI [address] [place] [address] 04/02/2025 1:30 AM EDT Home Care Visit [facility] [address] [place] [phone] Emeli Cm, LEI [address] [place] [address] 04/04/2025 1:00 AM EDT [facility] Visit [facility] [address] [place] [phone] Emeli Cm RN [address] [place] [address] 04/07/2025 1:30 AM EDT Home [facility] Visit [facility] [address] [place] [phone] Emeli Cm, LEI [address] [place] [address] 04/09/2025 Home Care Visit [facility] [address] [place] [phone] Emeli Cm, LEI [address] [place] [address] 04/11/2025 1:00 AM EDT Home [facility] Visit [facility] [address] [place] [phone] Emeli Cm, LEI [address] [place] [address] 04/14/2025 1:30 AM EDT Home Care Visit [facility] [address] [place] [phone] Emeli Cm RN [address] [place] [address] 04/16/2025 1:00 AM EDT Home Care Visit [facility] [address] [place] [phone] Emeli Cm RN [address] [place] [address] 04/18/2025 12:30 AM EDT Home Care Visit [facility] [address] [place] [phone] Emeli Cm RN [address] [place] [address] 04/21/2025 1:30 AM EDT Home Care Visit [facility] [address] [place] [phone] Emeli Cm RN [address] [place] [address] 04/23/2025 1:00 AM EDT Home Care Visit [facility] [address] [place] [phone] Emeli Cm RN [address] [place] [address] 04/25/2025 12:30 AM EDT Home Care Visit [facility] [address] [place] [phone] Emeli Cm RN [address] [place] [address] 04/28/2025 1:30 AM EDT [facility] Visit [facility] [address] [place] [phone] Emeli Cm, RN [address] [place] [address] 04/30/2025 12:30 AM EDT Home Care Visit [facility] [address] [place] [phone] Tamika Mcduffie RN [address] [place] [address] 05/02/2025 Home Care Visit [facility] [address] [place] [phone] Emeli Cm, LEI [address] [place] [address] 05/05/2025 12:30 AM EDT Home Care Visit [facility] [address] [place] [phone] Emeli Cm, RN [address] [place] [address] 05/07/2025 Home Care Visit [facility] [address] [place] [phone] Emeli Cm, RN [address] [place] [address] 05/09/2025 12:30 AM EDT Home [facility] Visit [facility] [address] [place] [phone] Emeli Cm, RN [address] [place] [address] 05/12/2025 Home Care Visit [facility] [address] [place] [phone] Emeli Cm, LEI [address] [place] [address] documented as of this encounter Visit Diagnoses Not on filedocumented in this encounter Care Teams Collar Setter Relationship Specialty Start Date End Date Maribell Malone DO [address] [place] [address] [email or web address] PCP - General Family Medicine 03/14/24 documented as of this encounter Additional Source Comments The information contained in this document represents components of the legal health record. It is not the complete legal health record.[facility]
--- OUTSIDE RECORDS SUMMARY | 2025-03-27 11:18 | XMS_ITS | Clinical Summary ---
Author Organization [facility] Address [address] [place] [address] Care Team Providers Care Manager Hi Name Role Phone Solitario Montoya MD Primary Care Provider [phone] Allergies No known active allergies Medications atorvastatin [...] Genital herpes DX:Genital herpe s Suicide attempt ([facility] V24 , [facility] V28) DX:Suicide attempt ([facility]);COM MENT:MULTI TIMES WHEN SHE WAS [...] Results * Hm HIV Screening (08/07/2020) Pathologist [facility] HIV Screening Abstracted Historical Provider HEALTH [...] on 09/28/2017 4:28 PM. Workstation Name - [id number] Procedure Note Magno Mccloud MD - 07/20/2022 [...] MD on 09/28/2017 4:28 PM.Workstation Name - [id number] Solitario Montoya MD IMG BI PROCEDURES Final Result from Last 3 Months or Most Recently Relevant to Health Maintenance Care Teams Manager Hi Relationship Specialty Start Date End Date Solitario Montoya MD [address] [place] [address] PCP - General Internal Medicine 08/17/17
== END 2025-03-27 10:34 | disposition home or self-care (01) ==
LOC: HO.HBS 10:03
PROVIDERS: PCP Family Medicine; Visit Provider Physician Assistant Surgical
DX: Z98.890 Other specified postprocedural states (principal)
CPT/HCPCS: 99024

== ENCOUNTER 2025-04-03 10:06 | Outpatient (AMB) | payer OTHER, SELFPAY ==
--- OUTSIDE RECORDS SUMMARY | 2025-04-02 11:30 | XMS_ITS | Encounter Summary ---
Author Organization [facility] Address [address] [facility] [address] [place] [address] Phone Care Team Providers Care Nurse Esthetician Name Role Phone Maribell Malone DO Primary Care Provider + [phone] Reason for Visit * Auth/Cert (Routine) Specialty Diagnoses / Procedures Referred By Matthew t Referred To Contact Referral ID Status Reason Start Date Expiration Date Visits Re quested Visits Authorized [id number] 1 1 Encounter Details Date Type Department Care Team (Late st Contact Info) Description 04/02/2025 11:30 AM EDT [facility] [address] [place] [phone] Emeli Cm, LEI [address] [place] [address] [email or web address] SN HOME VISIT Social History Tobacco Use [...] Sign Reading Time Taken Comments Blood Pressure 110/70 04/02/2025 11:52 AM EDT Pulse 59 04/02/2025 11:52 AM EDT Temperature 36.6 C (97.8 F) 04/02/2025 11:52 AM EDT Respiratory Rate 16 04/02/2025 11:52 AM EDT Oxygen Saturation 98% 04/02/2025 11:52 AM EDT Inhaled Oxygen Concentration - - Weight - - Height - - Body Mass Index - - documented in this encounter Plan of Treatment Upcoming Encounters Date Type Department Care Team (Late st Contact Info) Description 04/04/2025 1:00 AM EDT [facility] Visit [facility] [address] [place] [address] Apryl Epstein LPN [address] [place] [address] [email or web address] 04/07/2025 1:30 AM EDT Home [facility] [address] [place] [address] Emeli Cm RN [address] [place] [address] [email or web address] 04/09/2025 Home Care Visit [facility] [address] [place] [address] Emeli Cm RN [address] [place] [address] [email or web address] 04/11/2025 1:00 AM EDT Home Care Visit [facility] [address] [place] [address] Emeli Cm RN [address] [place] [address] [email or web address] 04/14/2025 1:30 AM EDT Home Care Visit [facility] [address] [place] [phone] Emeli Cm, LEI [address] [place] [address] [email or web address] 04/16/2025 1:00 AM EDT Home Care Visit [facility] [address] [place] [phone] Emeli Cm, LEI [address] [place] [address] [email or web address] 04/18/2025 12:30 AM EDT Home Care Visit [facility] [address] [place] [phone] Emeli Cm RN [address] [place] [address] [email or web address] 04/21/2025 1:30 AM EDT Home [facility] Visit [facility] [address] [place] [phone] Emeli Cm, LEI [address] [place] [address] [email or web address] 04/23/2025 1:00 AM EDT Home Care Visit [facility] [address] [place] [phone] Emeli Cm RN [address] [place] [address] [email or web address] 04/25/2025 12:30 AM EDT Home Care Visit [facility] [address] [place] [phone] Emeli Cm, LEI [address] [place] [address] [email or web address] 04/28/2025 1:30 AM EDT Home Care Visit [facility] [address] [place] [phone] Emeli Cm, LEI [address] [place] [address] [email or web address] 04/30/2025 12:30 AM EDT Home [facility] Visit [facility] [address] [place] [phone] Tamika Mcduffie RN [address] [place] [address] 05/02/2025 Home Care Visit [facility] [address] [place] [phone] Emeli Cm, LEI [address] [place] [address] [email or web address] 05/05/2025 12:30 AM EDT Home Care Visit [facility] [address] [place] [phone] Emeli Cm, LEI [address] [place] [address] [email or web address] 05/07/2025 Home Care Visit [facility] [address] [place] [phone] Emeli Cm, LEI [address] [place] [address] [email or web address] 05/09/2025 12:30 AM EDT Home Care Visit [facility] [address] [place] [phone] Emeli Cm, LEI [address] [place] [address] [email or web address] 05/12/2025 Home Care Visit [facility] [address] [place] [phone] Emeli Cm, LEI [address] [place] [address] [email or web address] documented as of this encounter Visit Diagnoses Not on filedocumented in this encounter Home Health Visit - Care Plan Visit Details Visit Type - HOME VISIT Discipline -Prison Problems Problem Description Start Date Status Goals [...] the event of an emergency related situation. - Emergency Planning - Knowledge of No HH - Achieve care management for a safe to home/community discharge from homecare - Standard of Care No HH - Demonstrate/verbalize wound care management, wound/lesion will be free from complications HH - Wound No HH - Demonstrate/verbalize drain management, drain will be free from complications - Drain No Interventions Intervention Associated Problem/Goal Status Variance Visit Notes - I/E medication management: administration, purpose, dosages, [...] at each visit Problem: - Medication Management Goal: - Safe medication management, avoid unnecessary harm related to medication errors and/or interactions Completed HH - Focus of care, teaching completed and plan for next visit Problem: - Focus of Care and Teaching Goal:HH - Communication and collaboration to achieve patient goals Completed Primary Clinical Focus this Visit & Instruction Provided: SNV for wound care/assessment. pt sees surgeon tomorrow in person for f/u. no signs of infection at wound sites. WILLEM drain in place, drain site is very senstive but pink in color, no signs of infection. drain OP is roughly 5cc over a 24hr period. pink/yellow tinged in color. denies any diarrheal episodes. voiding without issues. eating well. I/E s/s infection and when to seek emergent care. Instruction Provided to: patient Response to Instruction/Teachin g: Is partially able to teach back topics as evidenced by verbal recall. Plan for Next Visit Specific Focus & Education Needed: wound care New Orders: NA Updated Discharge Plan: when the pt can manage own wound care ind HH - I/E management [...] Description: Patient is/are knowledgeable of emergency plans. Problem: - Emergency Planning - Knowledge of Goal:HH - Knowledge of options for managing care in the event of an emergency related situation. Completed HH - Assess vital signs, pulse oximetry, pain, and as indicated, orthostatic vital signs Description: use agency-specific parameters Problem: - Standard of Care Goal:HH - [...] Completed documented in this encounter Care Teams Nurse Esthetician Relationship Specialty Start Date End Date Maribell Malone DO [address] [place] [address] [email or web address] PCP - General Family Medicine 03/14/24 documented as of this encounter Additional Source Comments The information contained in this document represents components of the legal health record. It is not the complete legal health record.[facility]
--- NOTE | 2025-04-03 10:10 | MHC.OFFVISWM ---
VS Expanded 04/03/25 10:31 BP 113/58 L Blood Pressure Location Rt brachial Blood Pressure Position Sitting Pulse 58 Pulse Source Pulse Oximeter Temp 97.8 F Temperature Source Temporal Artery Scan Pulse Oximetry 98 Oxygen Delivery Method Room Air Height 5 ft 5 in Weight 163 lb 12.8 oz BMI 27.3 Body Fat % 27.0 Body Fat Mass 4.0 Fat Free Mass 119.4 Visceral Fat Rating 5.0 Body Water % 52.0 Body Water Mass 85.0 Muscle Mass/Score 113.6 Basal Metabolic Rate/Score 1,587 Intake Visit Reasons: (OV) PO Panniculectomy 03/13/25 Allergies No Known Allergies Allergy (Verified 03/27/25 10:17) HPI Comments Details: Patient is a pleasant 49-year-old female who returns to the office today in follow-up. She is status post panniculectomy on 03/13/2025. She is doing very well. Following the meal plan. Taking antibiotics. She reports approximately 5-10 mL of serous fluid from the collection bulb on a daily basis. [facility] Medical History Head injury Obesity GERD (gastroesophageal reflux disease) PTSD (post-traumatic stress disorder) Depression History of positive PPD BMI 39.0-39.9,adult H. pylori infection Vitamin B12 deficiency Vitamin D deficiency Back pain Hyperlipidemia Morbid obesity Surgical History S/P panniculectomy History of sleeve gastrectomy Hx of foot surgery Hx of section History of surgery on lower extremity Hx of oral surgery Family History Sister Hypertension Obesity Daughter No problems noted. Son No problems noted. 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 primary professional healthcare representative to a significant other at home: No Do you presently have visiting nurse or other home services: No Alcohol intake: current Alcohol intake frequency: a few times a week Patient Tobacco Use Status: Former Tobacco user Tobacco use type: Cigarette Physical Exam Skin Other: Transverse and abdominal incisions clean, dry, intact. Healing nicely. Assessment & Plan Assessment & Plan (1) S/P panniculectomy: Code(s): Z98.890 - Other specified postprocedural states Category: Surgical Plan: Patient is doing well overall. Continue antibiotics for 1 more week Drain was removed today and she will keep the exit site clean, dry, covered. No shower for 48 hours. Continue to wear abdominal binder. Return to clinic 1 week.
[2025-04-03 10:31] VITALS: BP 113/58; PULSE 58; TEMP 36.6; O2SAT 98; BMI 27.3
--- OUTSIDE RECORDS SUMMARY | 2025-04-03 11:18 | XMS_ITS | Encounter Summary ---
Author Organization [facility] Address [address] [address] Phone Care Team Providers Care Software Engineer Kernel Name Role Phone Faisal Maribell Aj WEEMS Primary Care Provider [phone] Encounter Details Date Type Department Care Team (Late Contact Info) Description 03/26/2024 Procedure Pass OR Admitting Dept - Virtual Department [address] [place] [address] Social History Tobacco Use Types Packs/Day Years [...] Department Care Team (Late Contact Info) Description 04/04/2025 1:00 AM EDT [facility] Visit [facility] [address] [place] [phone] Apryl Epstein LPN [address] [place] [address] 04/07/2025 1:30 AM EDT [facility] [address] [place] [phone] Emeli Cm, LEI [address] [place] [address] 04/09/2025 Home Care Visit [facility] [address] [place] [phone] Emeli Cm RN [address] [place] [address] 04/11/2025 1:00 AM EDT Home Care Visit [facility] [address] [place] [phone] Emeli Cm RN [address] [place] [address] 04/14/2025 1:30 AM EDT Home Care Visit [facility] [address] [place] [phone] Emeli Cm, LEI [address] [place] [address] 04/16/2025 1:00 AM EDT Home Care Visit [facility] [address] [place] [phone] Emeli Cm RN [address] [place] [address] 04/18/2025 12:30 AM EDT Home Care Visit [facility] [address] [place] [phone] Emeli Cm, LEI [address] [place] [address] 04/21/2025 1:30 AM EDT Home [facility] Visit [facility] [address] [place] [phone] Emeli Cm, LEI [address] [place] [address] 04/23/2025 1:00 AM EDT Home [facility] Visit [facility] [address] [place], [place] [phone] Emeli Cm, LEI [address] [place] [address] 04/25/2025 12:30 AM EDT Home Care Visit [facility] [address] [place] [phone] Emeli Cm, LEI [address] [place] [address] 04/28/2025 1:30 AM EDT Home Care Visit [facility] [address] [place] [address] Emeli Cm, LEI [address] [place] [address] 04/30/2025 12:30 AM EDT Home Care Visit [facility] [address] [place] [address] Tamika Mcduffie RN [address] [place] [address] 05/02/2025 Home Care Visit [facility] [address] [place] [address] Emeli Cm, LEI [address] [place] [address] 05/05/2025 12:30 AM EDT Home Care Visit [facility] [address] [place], [place] [phone] Emeli Cm, LEI [address] [place] [address] 05/07/2025 Home [facility] Visit [facility] [address] [place] [address] Emeli Cm RN [address] [place] [address] 05/09/2025 12:30 AM EDT Home [facility] Visit [facility] [address] [place] [phone] Emeli Cm RN [address] [place] [address] 05/12/2025 Home Care Visit [facility] [address] [place] [phone] Emeli Cm RN [address] [place] [address] documented as of this encounter Visit Diagnoses Not on filedocumented in this encounter Care Teams Software Engineer Kernel Relationship Specialty Start Date End Date Maribell Malone DO [address] [place] [phone] PCP - General Family Medicine 03/14/24 documented as of this encounter Additional Source Comments The information contained in this document represents components of the legal health record. It is not the complete legal health record.[facility]
--- OUTSIDE RECORDS SUMMARY | 2025-04-03 11:18 | XMS_ITS | Clinical Summary ---
Author Organization [facility] Address [address] [place] [phone] Phone Care Team Providers Care Coal Dumping Equipment Operator Name Role Phone Maribell Malone Primary Care Provider [phone] Allergies No known active allergies Medications oxyCODONE-aceta [...] Encounters Date Type Department Care Team Description 04/02/2025 11:30 AM EDT [facility] [address] [place], [place] [phone] Emeli Cm RN SN HOME VISIT 03/28/2025 10:00 AM EDT Home Care Visit [facility] [address] [place], [place] [phone] Shorty Avila LPN LPN HOME VISIT 03/26/2025 9:15 AM EDT Home Care Visit [facility] [address] [place], [place] [phone] Emeli Cm RN SN HOME VISIT 03/26/2025 Episode Documentatio n Update [facility] [address] [facility] [place] [phone] Daysi Godoy 03/24/2025 10:00 AM EDT [facility] Visit [facility] [address] [place] [address] Emeli Cm RN SN HOME VISIT 03/21/2025 9:15 AM EDT Home Care Visit [facility] [address] [place] [address] Emeli Cm RN SN HOME VISIT 03/19/2025 10:00 AM EDT Home Care Visit [facility] [address] [place] [address] Emeli Cm RN SN HOME VISIT 03/17/2025 10:00 AM EDT [facility] [address] [place] [address] Emeli Cm RN SN HOME VISIT 03/16/2025 1:00 AM EDT Home Care Visit [facility] [address] [place] [address] Tamika Mcduffie RN SN HOME VISIT 03/15/2025 2:00 AM EDT Home Care Visit [facility] [address] [place] [address] Tamika Mcduffie RN SN OASIS START OF CARE (SOC) 03/15/2025 Plan of Care Documentation [facility] [address] [place] [address] 03/11/2025 Orders Only [facility] [address] [place] [address] Homehealth, Interface ProviderMD from Last 3 Months [...] 04/04/2025 1:00 AM EDT [facility] [address] [place], [place] [phone] Apryl Epstein LPN [address] [place] [address] 04/07/2025 1:30 AM EDT Home Care Visit [facility] [address] [place], [place] [phone] Emeli Cm, LEI [address] [place] [address] 04/09/2025 Home Care Visit [facility] [address] [place] [phone] Emeli Cm, LEI [address] [place] [address] 04/11/2025 1:00 AM EDT Home [facility] Visit [facility] [address] [place] [phone] Emeli Cm, LEI [address] [place] [address] 04/14/2025 1:30 AM EDT Home [facility] Visit [facility] [address] [place] [phone] Emeli Cm, LEI [address] [place] [address] 04/16/2025 1:00 AM EDT Home Care Visit [facility] [address] [place] [phone] Emeli Cm, LEI [address] [place] [address] 04/18/2025 12:30 AM EDT Home Care Visit [facility] [address] [place] [phone] Emeli Cm, LEI [address] [place] [address] 04/21/2025 1:30 AM EDT Home Care Visit [facility] [address] [place] [phone] Emeli Cm, LEI [address] [place] [address] 04/23/2025 1:00 AM EDT Home [facility] Visit [facility] [address] [place] [phone] Emeli Cm RN [address] [place] [address] 04/25/2025 12:30 AM EDT Home [facility] Visit [facility] [address] [place] [phone] Emeli Cm RN [address] [place] [address] 04/28/2025 1:30 AM EDT Home Care Visit [facility] [address] [place] [phone] Emeli Cm RN [address] [place] [address] 04/30/2025 12:30 AM EDT Home [facility] Visit [facility] [address] [place] [phone] Tamika Mcduffie RN [address] [place] [address] 05/02/2025 Home Care Visit [facility] [address] [place] [phone] Emeli Cm RN [address] [place] [address] 05/05/2025 12:30 AM EDT Home Care Visit [facility] [address] [place] [phone] Emeli Cm RN [address] [place] [address] 05/07/2025 Home Care Visit [facility] [address] [place] [phone] Emeli Cm RN [address] [place] [address] [email or web address] 05/09/2025 12:30 AM EDT [facility] Visit [facility] [address] [place], [place] [phone] Emeli Cm RN [address] [place] [address] [email or web address] 05/12/2025 Home Care Visit [facility] [address] [place], [place] [phone] Emeli Cm RN [address] [place] [address] [email or web address] Health Maintenance Due Date Last Done Comments LIPID PANEL 1977 DEPRESSION SCREENING 1989 SMOKING Hx and SMOKELESS TOBACCO SCREENING 1990 HEPATITIS C SCREENING 1995 HIV ONE-TIME SCREENING (18-6 5 YEARS) 1995 SCREENING FOR DIABETES 2012 MAMMOGRAM 2017 COLOGUARD 2022 COLONOSCOPY 2022 COLORECTAL CANCER SCREENING 2022 FIT TEST 2022 FOBT 2022 SIGMOIDOSCOPY 2022 VIRTUAL COLONOSCOPY 2022 INFLUENZA VACCINE (#1) 2025 05/17/2022 PAP SMEAR 03/18/2025 03/18/2022 COVID-19 VACCINE ( - 2024-2 6 season) 2025 05/17/2022, 09/23/2020, 08/26/2020 Adult Td,Tdap Booster 05/31/2025 05/31/2015 PNEUMOCOCCAL VACCINES [...] this topic Medical Devices Implanted Type Area Financial Solutions Advisor Device Identifier Shelf Expiration Date Model / Serial / Lot Sergio Lea l: Foot Description:Suicide attempt, jumped off a 4 story building. Many hardware both feet ankles legs Mesh Membrane 4x4.5cm Graft Tissue Epifix Allograft Human Amniotic Dehydrated Ambient Square - [id number] Implanted:Qty: 1 on 03/26/2024 by Audrey Coyle, KRYSTIN at [facility] Right: Foot [employer] 07/31/2028 [id number] / / Description:Tissue id: [id number] Lapiplasty Speedplate 18 X 14 Rapid Compression Implant Implanted:Qty: 1 on 03/26/2024 by Audrey Coyle DPM at [facility] Right: Foot [employer] 11/19/2028 / / [id number] Description:REF:SK51 Lapiplasty Speedplate Quad 28mm Anatomic Compression Implant Implanted:Qty: 1 on 03/26/2024 by Audrey Coyle DPM at [facility] Right: Foot [employer] 09/20/2028 / / [id number] Description:Ref: sk50 Procedures Procedure Name Priority Date/Time Associated Diagnosis Comments PAP TEST Routine 03/18/2022 12:00 AM EDT from Last 3 Months or Most Recently Relevant to Health Maintenance Results * Pap Smear (03/18/2022 12:00 AM EDT) 03/18/2022 03/22/2022 9:4 1 AM EDT Narrative SEE NARRATIVE - 03/24/2022 2:25 PM EDT [address] [address] Washer Meat: Lis Carrillo MD TEMPLATE MAKER Cytology Report FINAL DIAGNOSIS A. PAP SMEAR [...] 52, 56, 58, 59, 66, 68) by Bazari HR-HPV analysis. Clinical correlation is advised. This HPV test was performed at [facility], [address] [place] [address]. This test has been FDA approved for SurePath cervical cytology specimens. The accuracy and precision of this test for all other specimen sources has been verified in the Cytopathology Laboratory of the [facility] and has not been cleared or approved by the U.S. Food and Drug Administration. Clinical correlation is advised. CLINICAL HISTORY Date of Last Menstrual Period: 03-10-2022 Other Clinical Conditions: Screening Pap SPECIMEN SOURCE A: PAP SMEAR (SUREPATH) CE Patient Name: MARY CASON : 1975 (Age: 46) Sex: F Institution: [facility] Location: [facility] Date of Collection: 03/18/2022 Date of Reported: 03/24/2022 14:25 Results to: Maribell Malone DO us Maribell Malone DO CYTOLOGY ORDERABLES Final Re sult SEE NARRATIVE from Last 3 Months or Most Recently Relevant to Health Maintenance Insurance DOUGLAS Doctor kinetic BENEFITS ADMINISTRATORS [employer] BENEFITS ADMINISTRATORS [employer] ADMINISTRAT[employer] BENEFITS ADMINISTRATORS [employer] BENEFITS ADMINISTRATORS [employer] B[employer]EF[employer] ADMINISTRATORS [employer] BENEFITS ADMINISTRATORS [employer]MINISTR[employer] [place] [phone] Care Teams Coal Dumping Equipment Operator Relationship Specialty Start Date End Date Maribell Malone DO [address] [place] [phone] PCP - General Family Medicine 03/14/24 Additional Source Comments The information contained in this document represents components of the legal health record. It is not the complete legal health record.[facility]
== END 2025-04-03 10:34 | disposition home or self-care (01) ==
LOC: HO.HBS 10:06
PROVIDERS: PCP Family Medicine; Visit Provider Physician Assistant Surgical
DX: Z98.890 Other specified postprocedural states (principal)
CPT/HCPCS: 99024

== ENCOUNTER 2025-04-09 11:47 | Outpatient (AMB) | payer OTHER, SELFPAY ==
--- OUTSIDE RECORDS SUMMARY | 2025-04-04 09:45 | XMS_ITS | Encounter Summary ---
Author Organization [facility] Address [address] [facility] [address] [place] [phone] Phone Care Team Providers Care Structural Mill Supervisor Name Role Phone Maribell Malone DO Primary Care Provider + [phone] Reason for Visit * Auth/Cert (Routine) Specialty Diagnoses / Procedures Referred By Matthew t Referred To Contact Referral ID Status Reason Start Date Expiration Date Visits Re quested Visits Authorized [id number] 1 1 Encounter Details Date Type Department Care Team (Late st Contact Info) Description 04/04/2025 9:45 AM EDT Home Care Visit [facility] [address] [place] [phone] Apryl Epstein LPN [address] [place] [address] [email or web address] CUSTODIAL MAINTENANCE WORKER HOME VISIT Social History Tobacco Use Types [...] Sign Reading Time Taken Comments Blood Pressure 116/66 04/04/2025 10:29 AM EDT Pulse 72 04/04/2025 10:29 AM EDT Temperature 36.4 C (97.6 F) 04/04/2025 10:29 AM EDT Respiratory Rate 18 04/04/2025 10:29 AM EDT Oxygen Saturation 99% 04/04/2025 10:29 AM EDT Inhaled Oxygen Concentration - - Weight - - Height - - Body Mass Index - - documented in this encounter Plan of Treatment Upcoming Encounters Date Type Department Care Team (Late st Contact Info) Description 04/11/2025 1:00 AM EDT Home Care Visit [facility] [address] [place] [address] Emeli Cm RN [address] [place] [address] 04/14/2025 1:30 AM EDT Home Care Visit [facility] [address] [place] [address] Emeli Cm RN [address] [place] [address] 04/16/2025 1:00 AM EDT Home Care Visit [facility] [address] [place] [address] Emeli Cm RN [address] [place] [address] 04/18/2025 12:30 AM EDT Home Care Visit [facility] [address] [place] [address] Emeli Cm RN [address] [place] [address] 04/21/2025 1:30 AM EDT Home Care Visit [facility] [address] [place] [phone] Emeli Cm, LEI [address] [place] [address] 04/23/2025 1:00 AM EDT Home Care Visit [facility] [address] [place] [phone] Emeli Cm, LEI [address] [place] [address] 04/25/2025 12:30 AM EDT Home Care Visit [facility] [address] [place] [phone] Emeli Cm RN [address] [place] [address] 04/28/2025 1:30 AM EDT Home Care Visit [facility] [address] [place] [phone] Emeli Cm, LEI [address] [place] [address] 04/30/2025 12:30 AM EDT Home Care Visit [facility] [address] [place] [phone] Tamika Mcduffie RN [address] [place] [address] 05/02/2025 Home Care Visit [facility] [address] [place] [phone] Emeli Cm, LEI [address] [place] [address] 05/05/2025 12:30 AM EDT Home Care Visit [facility] [address] [place], [place] [phone] Emeli Cm RN [address] [place] [address] 05/07/2025 Home Care Visit [facility] [address] [place], [place] [phone] Emeli Cm RN [address] [place] [address] 05/09/2025 12:30 AM EDT Home Care Visit [facility] [address] [place], [place] [phone] Emeli Cm RN [address] [place] [address] 05/12/2025 Home Care Visit [facility] [address] [place], [place] [phone] Emeli Cm RN [address] [place] [address] documented as of this encounter Visit Diagnoses Not on filedocumented in this encounter Home Health Visit - Care Plan Visit Details Visit Type -CUSTODIAL MAINTENANCE WORKER HOME VISIT Discipline -Prison Problems Problem Description [...] 1 goal linked to scheduled/document ed intervention HH - Standard of Care Disciplines: All Active Home Health Disciplines 03/15/2025 Active 1 goal linked to scheduled/document ed intervention 2 goal interventions scheduled/document ed in this visit HH - Pain Disciplines: All Active Home Health Disciplines 03/15/2025 Active 1 goal linked to scheduled/document ed intervention HH - Wound Disciplines: All Active Home Health Disciplines 03/15/2025 Active 1 goal linked to scheduled/document ed intervention 1 goal intervention scheduled/document ed in this visit Goals Goal Associated Problem Outcome Goal Met? Visit Notes HH - Safe medication management, avoid unnecessary harm related to medication errors and/or interactions HH - Medication Management Progressing No HH - Communication and collaboration to [...] - Infection - Actual or Risk of Progressing No HH - Achieve care management for a safe to home/community discharge from homecare HH - Standard of Care No HH - Frequency of pain interfering with patient's activity or movement will improve with activity or movement by discharge. Description: Pain will be managed over the course of care. Patient's acceptable level of pain is 1 - pain that doesn't interfere. HH - Pain Progressing No HH - Demonstrate/verbalize wound care management, wound/lesion will be free from complications HH - Wound Progressing No Interventions Intervention Associated Problem/Goal Status Variance [...] Clinical Focus this Visit & Instruction Provided: Pt is a&o x 4. Pt sgreeting sn at door upon arrival. Sn visit for drain care, wound/incision care. Pt reports Rob sherif removed by suregeon at f/u apt yesterday. Pt was intructed to cont to take abt until 04/10, med list updated. Rob drain site covered with dcd upon arrival, sn changed with a dcd, scant sersang drg, no s/sx infection. Incision line well approximated steristrips intact. Pt denies resp or cardiac distress. Pt reports no dizziness or falls, good appetite and adequate hydration. Pt educated on wound care, s/sx infection, diet/hydration and when to call md/911 Instruction Provided to: patient Response to Instruction/Teaching: Is partially able to teach back topics as evidenced by verbal recall. Plan for Next Visit Specific Focus & Education Needed: wound care New Orders: na Updated Discharge Plan: when patient/caregiver is independent with disease management and knowledgeable of signs/ symptoms to report to provider. HH - I/E management of care in [...] HH - Assess wounds/lesions/garcia Description: panniculectomy incision, rob drain and umbilicus Problem:HH - Wound Goal:HH - Demonstrate/verbalize wound care management, wound/lesion will be free from complications Completed documented in this encounter Care Teams Structural Mill Supervisor Relationship Specialty Start Date End Date Maribell Malone DO [address] [place] [phone] [email or web address] PCP - General Family Medicine 03/14/24 documented as of this encounter Additional Source Comments The information contained in this document represents components of the legal health record. It is not the complete legal health record.[facility]
--- OUTSIDE RECORDS SUMMARY | 2025-04-07 11:00 | XMS_ITS | Encounter Summary ---
Author Organization [facility] Address [address] [facility] [address] [place] [phone] Phone Care Team Providers Care Psych Nurse Name Role Phone Maribell Malone DO Primary Care Provider + [phone] Reason for Visit * Auth/Cert (Routine) Specialty Diagnoses / Procedures Referred By Matthew t Referred To Contact Referral ID Status Reason Start Date Expiration Date Visits Re quested Visits Authorized [id number] 1 1 Encounter Details Date Type Department Care Team (Late st Contact Info) Description 04/07/2025 11:00 AM EDT Home Care Visit [facility] [address] [place] [phone] Brody Epps, LEI [address] [place] [address] [email or web address] SN HOME VISIT Social History Tobacco Use [...] Sign Reading Time Taken Comments Blood Pressure - - Pulse 54 04/07/2025 10:50 AM EDT Temperature 36.3 C (97.4 F) 04/07/2025 10:50 AM EDT Respiratory Rate 20 04/07/2025 10:50 AM EDT Oxygen Saturation - - Inhaled Oxygen Concentration - - Weight - - Height - - Body Mass Index - - documented in this encounter Plan of Treatment Upcoming Encounters Date Type Department Care Team (Late st Contact Info) Description 04/11/2025 1:00 AM EDT Home Care Visit [facility] [address] [place] [phone] Emeli Cm RN [address] [place] [address] 04/14/2025 1:30 AM EDT Home Care Visit [facility] [address] [place] [address] Emeli Cm, LEI [address] [place] [phone] 04/16/2025 1:00 AM EDT Home Care Visit [facility] [address] [place] [address] Emeli Cm RN [address] [place] [address] 04/18/2025 12:30 AM EDT Home Care Visit [facility] [address] [place] [phone] Emeli Cm RN [address] [place] [address] 04/21/2025 1:30 AM EDT Home Care Visit [facility] [address] [place] [phone] Emeli Cm RN [address] [place] [address] 04/23/2025 1:00 AM EDT Home Care Visit [facility] [address] [place] [phone] Emeli Cm RN [address] [place] [address] 04/25/2025 12:30 AM EDT Home Care Visit [facility] [address] [place] [phone] Emeli Cm RN [address] [place] [address] 04/28/2025 1:30 AM EDT Home Care Visit [facility] [address] [place] [phone] Emeli Cm RN [address] [place] [address] 04/30/2025 12:30 AM EDT Home Care Visit [facility] [address] [place] [phone] Tamika Mcduffie RN [address] [place] [address] 05/02/2025 Home Care Visit [facility] [address] [place] [phone] Emeli Cm RN [address] [place] [address] 05/05/2025 12:30 AM EDT Home Care Visit [facility] [address] [place] [phone] Emeli Cm RN [address] [place] [address] 05/07/2025 Home Care Visit [facility] [address] [place], [place] [phone] Emeli Cm RN [address] [place] [address] 05/09/2025 12:30 AM EDT Home Care Visit [facility] [address] [place], [place] [phone] Emeli Cm RN [address] [place] [address] 05/12/2025 Home Care Visit [facility] [address] [place], [place] [phone] Emeli Cm RN [address] [place] [address] documented as of this encounter Visit Diagnoses Not on filedocumented in this encounter Home Health Visit - Care Plan Visit Details Visit Type -SN HOME VISIT Discipline -Correction Problems Problem Description Start Date Status Goals [...] Focus this Visit & Instruction Provided: SNV conducted, wound care tolerated per MD order, incision sites c/d/I with steri-strips, no drainage noted, no s/s of infection. Vitals WNL, no c/o of pain or any discomfort. Pt continues on abt until 04/10, no adverse reaction noted, f/u appointment with surgeon on 04/09. No concerns noted at this time. Instruction Provided to: patient Response to Instruction/Teaching: Is fully able to teach back topics as evidenced by verbalization. Plan for Next Visit Specific Focus & Education Needed: wound care/assess for s/s of an infection/pain assessment/when to call VNA/911 New Orders: no new orders Updated Discharge Plan: when pt is able to independently manage wound care. HH - I/E management of care in [...] Completed documented in this encounter Care Teams Psych Nurse Relationship Specialty Start Date End Date Maribell Malone DO [address] [place] [phone] [email or web address] PCP - General Family Medicine 03/14/24 documented as of this encounter Additional Source Comments The information contained in this document represents components of the legal health record. It is not the complete legal health record.[facility]
--- NOTE | 2025-04-09 11:52 | A.OFFVIS_ITS ---
VS Expanded 04/09/25 11:58 BP 119/72 Blood Pressure Location Rt brachial Blood Pressure Position Sitting Pulse 76 Pulse Source Pulse Oximeter Temp 98.6 F Temperature Source Temporal Artery Scan Pulse Oximetry 76 L Oxygen Delivery Method Room Air Intake Visit Reasons: (OV) PO Panniculectomy 03/13/25 Allergies No Known Allergies Allergy (Verified 03/27/25 10:17) Medication List - Last Reconciled 04/09/25 by JOSEY Montilla cephalexin 500 mg PO Q12H docusate sodium (Colace) 100 mg PO DAILY multivitamin 1 tab PO QAM ondansetron 4 mg PO Q12H HPI Comments Details: Patient is a pleasant 49-year-old female who returns to the office today in follow-up. She is status post panniculectomy on 03/13/2025. She is doing very well. Following the meal plan. Finishing final week of abx. Drain was removed at last visit. [facility] Medical History Head injury Obesity GERD (gastroesophageal reflux disease) PTSD (post-traumatic stress disorder) Depression History of positive PPD BMI 39.0-39.9,adult H. pylori infection Vitamin B12 deficiency Vitamin D deficiency Back pain Hyperlipidemia Morbid obesity Surgical History S/P panniculectomy History of sleeve gastrectomy Hx of foot surgery Hx of section History of surgery on lower extremity Hx of oral surgery Family History Sister Hypertension Obesity Daughter No problems noted. Son No problems noted. 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 primary customer care specialist to a significant other at home: No Do you presently have visiting nurse or other home services: No Alcohol intake: current Alcohol intake frequency: a few times a week Patient Tobacco Use Status: Former Tobacco user Tobacco use type: Cigarette Physical Exam Vital Signs: Last Vital Signs Temp 98.6 F 04/09/25 11:58 Pulse 76 04/09/25 11:58 BP 119/72 04/09/25 11:58 Pulse Ox 76 L 04/09/25 11:58 Oxygen Delivery Method Room Air 04/09/25 11:58 Const General: cooperative, comfortable and no acute distress Orientation/consciousness: patient oriented x3 GI Other: soft, nontender, nondistended incision c/d/i, umbilicus viable, drain site healed Neuro General: patient oriented x3 Assessment & Plan Assessment & Plan (1) S/P panniculectomy: Code(s): Z98.890 - Other specified postprocedural states Category: Medical (2) S/P laparoscopic sleeve gastrectomy: Code(s): Z98.84 - Bariatric surgery status Category: Medical (3) Overweight (BMI 25.0-29.9): Code(s): E66.3 - Overweight Category: Medical Plan Complete abx tomorrow. Continue meal plan. Binder x [address] Reyes Remaining steri strips may fall off on their own and pt may shower. No exercise yet. No additional wound care needed, can stop VNA. RTC 2w.
[2025-04-09 11:58] VITALS: BP 119/72; PULSE 76; TEMP 37; O2SAT 76
--- OUTSIDE RECORDS SUMMARY | 2025-04-09 15:01 | XMS_ITS | Encounter Summary ---
Author Organization [facility] Address [address] [address] Phone Care Team Providers Care Aircraft Maintenance Engineer Name Role Phone Maribell Malone Aj WEEMS Primary Care Provider + [phone] Encounter Details Date Type Department Care Team (Late Contact Info) Description 03/26/2024 Procedure Pass OR Admitting Dept - Virtual Department [address] [place] [address] Social History Tobacco Use Types Packs/Day Years [...] Department Care Team (Late Contact Info) Description 04/11/2025 1:00 AM EDT Home Care Visit [facility] [address] [place] [phone] Emeli Cm RN [address] [place], [place] [phone] 04/14/2025 1:30 AM EDT Home Care Visit [facility] [address] [place] [phone] Emeli Cm, LEI [address] [place] [address] 04/16/2025 1:00 AM EDT Home Care Visit [facility] [address] [place] [phone] Emeli Cm, LEI [address] [place] [address] 04/18/2025 12:30 AM EDT Home Care Visit [facility] [address] [place] [phone] Emeli Cm RN [address] [place] [address] 04/21/2025 1:30 AM EDT Home Care Visit [facility] [address] [place] [phone] Emeli Cm, LEI [address] [place] [address] 04/23/2025 1:00 AM EDT Home Care Visit [facility] [address] [place] [phone] Emeli Cm, LEI [address] [place] [address] 04/25/2025 12:30 AM EDT Home Care Visit [facility] [address] [place] [phone] Emeli Cm, LEI [address] [place] [address] 04/28/2025 1:30 AM EDT Home Care Visit [facility] [address] [place] [phone] Emeli Cm, LEI [address] [place] [address] 04/30/2025 12:30 AM EDT Home Care Visit [facility] [address] [place] [phone] Tamika Mcduffie RN [address] [place] [address] 05/02/2025 Home Care Visit [facility] [address] [place] [phone] Emeli Cm RN [address] [place] [address] 05/05/2025 12:30 AM EDT Home Care Visit [facility] [address] [place] [phone] Emeli Cm RN [address] [place] [address] 05/07/2025 Home Care Visit [facility] [address] [place] [phone] Emeli Cm RN [address] [place] [address] 05/09/2025 12:30 AM EDT Home Care Visit [facility] [address] [place] [phone] Emeli Cm RN [address] [place] [address] 05/12/2025 Home [facility] Visit [facility] [address] [place] [phone] Emeli Cm RN [address] [place] [address] documented as of this encounter Visit Diagnoses Not on filedocumented in this encounter Care Teams Aircraft Maintenance Engineer Relationship Specialty Start Date End Date Maribell Malone DO [address] [place] [phone] PCP - General Family Medicine 03/14/24 documented as of this encounter Additional Source Comments The information contained in this document represents components of the legal health record. It is not the complete legal health record.[facility]
--- OUTSIDE RECORDS SUMMARY | 2025-04-09 15:01 | XMS_ITS | Clinical Summary ---
Author Organization [facility] Address [address] [place] [address] Phone Care Team Providers Care Lactation Consultant Name Role Phone Maribell Malone Primary Care Provider Allergies No known active allergies Medications oxyCODONE-aceta minophen (PERCOCET) 5-325 mg per tablet Take 1 tablet by mouth every 4 (four) hours as needed for pain (specific location in comments). Partial fill ok 30 tablet 03/26/2024 Active cephalexin (KEFLEX) 500 MG capsule Take 500 mg by mouth 2 (two) times a day. 03/15/2025 04/10/20 25 Active docusate sodium (COLACE) 100 MG capsule Take 100 mg by mouth daily. 03/15/2025 Active Active Problems No known active problems Encounters Date Type Department Care Team Description 04/07/2025 11:00 AM EDT [facility] Visit [facility] [address], [place] [phone] Brody Epps, LEI SN HOME VISIT 04/04/2025 9:45 AM EDT Home Care Visit [facility] [address] [place] [phone] Apryl Epstein LPN LPN HOME VISIT 04/02/2025 11:30 AM EDT Home Care Visit [facility] [address], [place] [phone] Emeli Cm, LEI SN HOME VISIT 03/28/2025 10:00 AM EDT Home Care Visit [facility] [address], [place] [phone] Shorty Avila LPN TOP COATER HOME VISIT 03/26/2025 9:15 AM EDT [facility] Visit [facility] [address] [place] [address] Emeli Cm, LEI SN HOME VISIT 03/26/2025 Episode Documentatio n Update [facility] [address] [place] [address] Daysi Godoy 03/24/2025 10:00 AM EDT Home Care Visit [facility] [address] [place] [address] Emeli Cm, LEI SN HOME VISIT 03/21/2025 9:15 AM EDT Home Care Visit [facility] [address] [place] [address] Emeli Cm RN SN HOME VISIT 03/19/2025 10:00 AM EDT Home Care Visit [facility] [address] [place] [address] Emeli Cm, LEI SN HOME VISIT 03/17/2025 10:00 AM EDT Home Care Visit [facility] [address] [place] [address] Emeli Cm RN SN HOME VISIT 03/16/2025 1:00 AM EDT Home Care Visit [facility] [address] [place] [address] Tamika Mcduffie, LEI SN HOME VISIT 03/15/2025 2:00 AM EDT Home Care Visit [facility] [address] [place] [address] Tamika Mcduffie, RN SN OASIS START OF CARE (SOC) 03/15/2025 Plan of Care Documentation [facility] [address] [place] [address] 03/11/2025 Orders Only [facility] [address] [place] [phone] Homehealth, Interface ProviderMD from Last 3 Months [...] Pressure 116/66 04/04/2025 10:29 AM EDT Pulse 54 04/07/2025 10:50 AM EDT Temperature 36.3 C (97.4 F) 04/07/2025 10:50 AM EDT Respiratory Rate 20 04/07/2025 10:50 AM EDT Oxygen Saturation 99% 04/04/2025 10:29 [...] 1:00 AM EDT Home Care Visit [facility] [address] [place] [phone] Emeli Cm, LEI [address] [place] [address] [email or web address] 04/14/2025 1:30 AM EDT Home Care Visit [facility] [address] [place] [phone] Emeli Cm RN [address] [place] [address] [email or web address] 04/16/2025 1:00 AM EDT Home Care Visit [facility] [address] [place] [phone] Emeli Cm, LEI [address] [place] [address] [email or web address] 04/18/2025 12:30 AM EDT Home Care Visit [facility] [address] [place] [phone] Emeli Cm, LEI [address] [place] [address] [email or web address] 04/21/2025 1:30 AM EDT Home Care Visit [facility] [address] [place] [phone] Emeli Cm RN [address] [place] [address] [email or web address] 04/23/2025 1:00 AM EDT Home Care Visit [facility] [address] [place] [phone] Emeli Cm RN [address] [place] [address] [email or web address] 04/25/2025 12:30 AM EDT Home Care Visit [facility] [address] [place] [phone] Emeli Cm RN [address] [place] [address] 04/28/2025 1:30 AM EDT Home Care Visit [facility] [address] [place] [phone] Emeli Cm, LEI [address] [place] [address] 04/30/2025 12:30 AM EDT Home Care Visit [facility] [address] [place] [phone] Tamika Mcduffie RN [address] [place] [address] 05/02/2025 Home Care Visit [facility] [address] [place] [phone] Emeli Cm RN [address] [place] [address] [email or web address] 05/05/2025 12:30 AM EDT Home Care Visit [facility] [address] [place] [phone] Emeli Cm, LEI [address] [place] [address] 05/07/2025 Home Care Visit [facility] [address] [place] [phone] Emeli Cm RN [address] [place] [address] [email or web address] 05/09/2025 12:30 AM EDT Home Care Visit [facility] [address] [place] [phone] Emeli Cm, LEI [address] [place] [address] 05/12/2025 Home Care Visit [facility] [address], [place] [phone] Emeli Cm, LEI [address] [place] [address] [email or web address] Health Maintenance Due Date Last Done Comments [...] 05/17/2022 PAP SMEAR 03/18/2025 03/18/2022 COVID-19 VACCINE (4 - 2024-2 6 season) 2025 05/17/2022, 09/23/2020, [...] this topic Medical Devices Implanted Type Area Vp Digital Marketing Device Identifier Shelf Expiration Date Model / Serial / Lot Nodata NODLETY Tomatera l: Foot Description:Suicide attempt, jumped off a 4 story building. Many hardware both feet ankles legs Mesh Membrane 4x4.5cm Graft Tissue Epifix Allograft Human Amniotic Dehydrated Ambient Square - [id number] Implanted:Qty: 1 on 03/26/2024 by Audrey Coyle DPM at [facility] Right: Foot [employer] 07/31/2028 ES-[id number] / / Description:Tissue id: [id number] Lapiplasty Speedplate 18 X 14 Rapid Compression Implant Implanted:Qty: 1 on 03/26/2024 by Audrey Coyle, KRYSTIN at [facility] Right: Foot [employer] 11/19/2028 / / [id number] Description:REF:SK51 Lapiplasty Speedplate Quad 28mm Anatomic Compression Implant Implanted:Qty: 1 on 03/26/2024 by Audrey Coyle DPZhou at [facility] Right: Foot [employer] 09/20/2028 / / [id number] Description:Ref: sk50 Procedures Procedure Name Priority Date/Time Associated Diagnosis Comments PAP TEST Routine 03/18/2022 12:00 AM EDT from Last 3 Months or Most Recently Relevant to Health Maintenance Results * Pap Smear (03/18/2022 12:00 AM EDT) 03/18/2022 03/22/2022 9:4 1 AM EDT Narrative SEE NARRATIVE - 03/24/2022 2:25 PM EDT [address] [address] Meteorology Teacher: Lis Carrillo MD SEMICONDUCTOR WAFER INSPECTOR Cytology Report FINAL DIAGNOSIS A. PAP SMEAR [...] 52, 56, 58, 59, 66, 68) by Loop On[employer] HR-HPV analysis. Clinical correlation is advised. This HPV test was performed at [facility], [address] [place] [address]. This test has been FDA approved for SurePath cervical cytology specimens. The accuracy and precision of this test for all other specimen sources has been verified in the Cytopathology Laboratory of the [facility] and has not been cleared or approved by the U.S. Food and Drug Administration. Clinical correlation is advised. CLINICAL HISTORY Date of Last Menstrual Period: 03-10-2022 Other Clinical Conditions: Screening Pap SPECIMEN SOURCE A: PAP SMEAR (SUREPATH) CE Patient Name: MARY CASON : 1975 (Age: 46) Sex: F Institution: [facility] Location: [facility] Date of Collection: 03/18/2022 Date of Reported: 03/24/2022 14:25 Results to: Maribell Malone DO Maribell Malone DO CYTOLOGY ORDERABLES Final Re sult SEE NARRATIVE from Last 3 Months or Most Recently Relevant to Health Maintenance Insurance to-BBB BENEFITS ADMINISTRATORS [email or web address] BENEFITS ADMINISTRATORS [email or web address] [facility] ADMINISTRATORS [email or web address] BENEFITS ADMINISTRATORS [employer] [facility] ADMINISTRATORS [email or web address] [facility] ADMINISTRATORS [email or web address] [facility] ADMINISTRATORS to-[employer]B BENEFITS ADMINISTRATORS Care Teams Lactation Consultant Relationship Specialty Start Date End Date Maribell Malone DO [address] [place] [address] [email or web address] PCP - General Family Medicine 03/14/24 Additional Source Comments The information contained in this document represents components of the legal health record. It is not the complete legal health record.[facility]
== END 2025-04-09 12:22 | disposition home or self-care (01) ==
LOC: HO.HBS 11:48
PROVIDERS: PCP Family Medicine; Visit Provider Physician Assistant Surgical
DX: E66.3 Overweight (principal); Z68.26 Body mass index [BMI] 26.0-26.9, adult; Z98.84 Bariatric surgery status; Z98.890 Other specified postprocedural states
CPT/HCPCS: 99024

== ENCOUNTER 2025-04-23 10:24 | Outpatient (AMB) | payer OTHER, SELFPAY ==
--- NOTE | 2025-04-23 10:31 | A.OFFVIS_ITS ---
VS Expanded 04/23/25 10:38 BP 115/70 Blood Pressure Location Rt brachial Blood Pressure Position Sitting Pulse 69 Pulse Source Pulse Oximeter Temp 97.4 F Temperature Source Temporal Artery Scan Pulse Oximetry 99 Oxygen Delivery Method Room Air Height 5 ft 5 in Weight 161 lb BMI 26.8 Body Fat % 27.8 Body Fat Mass 44.8 Fat Free Mass 116.2 Visceral Fat Rating 5.0 Body Water % 51.4 Body Water Mass 82.6 Muscle Mass/Score 110.2 Basal Metabolic Rate/Score 1,547 Intake Visit Reasons: (OV) PO Panniculectomy 03/13/25 Allergies No Known Allergies Allergy (Verified 04/23/25 10:41) Medication List - Last Reconciled 04/23/25 by JOSEY Montilla docusate sodium (Colace) 100 mg PO DAILY multivitamin 1 tab PO QAM ondansetron 4 mg PO Q12H HPI Comments Details: Pt is 6w s/p panniculectomy 03/13/25. Doing well, no complaints. No fevers. Following meal plan and wearing binder as directed. [facility] Medical History Head injury Obesity GERD (gastroesophageal reflux disease) PTSD (post-traumatic stress disorder) Depression History of positive PPD BMI 39.0-39.9,adult H. pylori infection Vitamin B12 deficiency Vitamin D deficiency Back pain Hyperlipidemia Morbid obesity Surgical History S/P panniculectomy History of sleeve gastrectomy Hx of foot surgery Hx of section History of surgery on lower extremity Hx of oral surgery Family History Sister Hypertension Obesity Daughter No problems noted. Son No problems noted. 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 primary career placement services counselor to a significant other at home: No Do you presently have visiting nurse or other home services: No Alcohol intake: current Alcohol intake frequency: a few times a week Patient Tobacco Use Status: Former Tobacco user Tobacco use type: Cigarette Physical Exam Vital Signs: Last Vital Signs Temp 97.4 F 04/23/25 10:38 Pulse 69 04/23/25 10:38 BP 115/70 04/23/25 10:38 Pulse Ox 99 04/23/25 10:38 Oxygen Delivery Method Room Air 04/23/25 10:38 BMI result Body Mass Index 26.8 Const General: cooperative, comfortable and no acute distress Orientation/consciousness: patient oriented x3 GI Other: soft, nontender, nondistended, incisions well healed Neuro General: patient oriented x3 Assessment & Plan Assessment & Plan (1) S/P panniculectomy: Code(s): Z98.890 - Other specified postprocedural states Category: Surgical (2) S/P laparoscopic sleeve gastrectomy: Code(s): Z98.84 - Bariatric surgery status Category: Surgical (3) Overweight (BMI 25.0-29.9): Code(s): E66.3 - Overweight Category: Medical Plan Continue binder until 3mo postop. Pt will ask Dr Chung next week if cleared for exercise. No heavy lifting. She will continue to send weekly photos at his direction. RTC 3mo.
[2025-04-23 10:38] VITALS: BP 115/70; PULSE 69; TEMP 36.3; O2SAT 99; BMI 26.8
--- OUTSIDE RECORDS SUMMARY | 2025-04-23 12:54 | XMS_ITS | Clinical Summary ---
Author Organization [facility] Address [address] [place] [phone] Phone Care Team Providers Care Seasoning Sprayer Name Role Phone Maribell Malone Primary Care Provider [phone] Allergies No known active allergies Medications oxyCODONE-aceta minophen (PERCOCET) 5-325 mg per tablet Take 1 tablet by mouth every 4 (four) hours as needed for pain (specific location in comments). Partial fill ok 30 tablet 4 Active docusate sodium (COLACE) 100 MG capsule Take 100 mg by mouth daily. 5 Active cephalexin (KEFLEX) 500 MG capsule Take 500 mg by mouth 2 (two) times a day. 5 04/10/20 25 Active Problems No known active problems Encounters Date Type Department Care Team Description 04/10/2025 1:30 PM EDT Home [facility] Visit [facility] [address] [place], [place] [phone] Brody Epps, LEI SN OASIS DISCHARGE VISIT 04/07/2025 11:00 AM EDT Home Care Visit [facility] [address] [place], [place] [phone] Brody Epps, RN SN HOME VISIT 04/04/2025 9:45 AM EDT Home Care Visit [facility] [address] [place] [phone] Apryl Epstein LPN LPN HOME VISIT 04/02/2025 11:30 AM EDT Home Care Visit [facility] [address] [place], [place] [phone] Emeli Cm, LEI SN HOME VISIT 03/28/2025 10:00 AM EDT Home Care Visit [facility] [address] [place], [place] [phone] Shorty Avila LPN SALES TECHNICIAN HOME THEATER HOME VISIT 03/26/2025 9:15 AM EDT Home Care Visit [facility] [address] [place], [place] [phone] Emeli Cm, LEI SN HOME VISIT 03/26/2025 Episode Documentatio n Update [facility] [address] [place], [place] [phone] Daysi Godoy 03/24/2025 10:00 AM EDT Home Care Visit [facility] [address] [place] [address] Emeli Cm, RN SN HOME VISIT 03/21/2025 9:15 AM EDT Home Care Visit [facility] [address] [place] [address] Emeli Cm, RN SN HOME VISIT 03/19/2025 10:00 AM EDT Home Care Visit [facility] [address] [place] [address] Emeli Cm, RN SN HOME VISIT 03/17/2025 10:00 AM EDT Home Care Visit [facility] [address] [place], [place] [phone] Emeli Cm, LEI SN HOME VISIT 03/16/2025 1:00 AM EDT Home Care Visit [facility] [address] [place], [place] [phone] Tamika Mcduffie RN SN HOME VISIT 03/15/2025 2:00 AM EDT Home Care Visit [facility] [address] [place], [place] [phone] Tamika Mcduffie RN SN OASIS START OF CARE (SOC) 03/15/2025 Plan of Care Documentation [facility] [address] [place] [phone] 03/11/2025 Orders Only [facility] [address] [place] [phone] Homehealth, Interface ProviderMD from Last 3 Months Social History Tobacco Use Types Packs/Day Years Used Date Smoking Tobacco: Former Cigarettes Smokeless Tobacco: Never Tobacco Cessation:Counseling Given: Not Answered Comments:Quit 2017 Alcohol Use Standard Drinks/Week Comments Yes 8 (1 standard drink = 0.6 oz pur e alcohol) Home Health Assessment: Transportation Answer Date Recorded Lack of Transportation (Medical) No 04/10/2025 Lack of Transportation (Non-Medical) No 04/10/2025 Patient Unable or Declines to Respond No 04/10/2025 Education Answer Date Recorded Are you interested [...] Sign Reading Time Taken Comments Blood Pressure 122/82 04/10/2025 1:05 PM EDT Pulse 68 04/10/2025 1:05 PM EDT Temperature 36.4 C (97.5 F) 04/10/2025 1:05 PM EDT Respiratory Rate 18 04/10/2025 1:05 PM EDT Oxygen Saturation 99% 04/10/2025 1:05 PM EDT Inhaled Oxygen Concentration - - [...] 05/17/2022 PAP SMEAR 03/18/2025 03/18/2022 COVID-19 VACCINE (2024-2 6 season) 2025 05/17/2022, 09/23/2020, 08/26/2020 Adult [...] this topic Medical Devices Implanted Type Area Machine Gunner Device Identifier Shelf Expiration Date Model / Serial / Lot Nodata NODATA Bilatera l: Foot Description:Suicide attempt, jumped off a 4 story building. Many hardware both feet ankles legs Mesh Membrane 4x4.5cm Graft Tissue Epifix Allograft Human Amniotic Dehydrated Ambient Square - [id number] Implanted:Qty: 1 on 03/26/2024 by Audrey Coyle DPM at [facility] Right: Foot [employer] 07/31/2028 ES-4400 / / Description:Tissue id: [id number] Lapiplasty Speedplate 18 X 14 Rapid Compression Implant Implanted:Qty: 1 on 03/26/2024 by Audrey Cyole DPM at [facility] Right: Foot [employer] 11/19/2028 / / [id number] Description:REF:SK51 Lapiplasty Speedplate Quad 28mm Anatomic Compression Implant Implanted:Qty: 1 on 03/26/2024 by Audrey Coyle DPM at [facility] Right: Foot [employer] 09/20/2028 / / [id number] Description:Ref: sk50 Procedures Procedure Name Priority Date/Time Associated Diagnosis Comments PAP TEST Routine 03/18/2022 12:00 AM EDT from Last 3 Months or Most Recently Relevant to Health Maintenance Results * Pap Smear (03/18/2022 12:00 AM EDT) 03/18/2022 03/22/2022 9:4 1 AM EDT Narrative SEE NARRATIVE - 03/24/2022 2:25 [place] [address] Beveller Operator: Lis Carrillo MD BRASS INSTRUMENT REPAIR TECHNICIAN Cytology Report FINAL DIAGNOSIS A. PAP SMEAR [...] 52, 56, 58, 59, 66, 68) by [employer] HR-HPV analysis. Clinical correlation is advised. This HPV test was performed at [facility], [address] [place] [address]. This test has been FDA approved for SurePath cervical cytology specimens. The accuracy and precision of this test for all other specimen sources has been verified in the Cytopathology Laboratory of the [facility] and has not been cleared or approved by the U.S. Food and Drug Administration. Clinical correlation is advised. CLINICAL HISTORY Date of Last Menstrual Period: 03-10-2022 Other Clinical Conditions: Screening Pap SPECIMEN SOURCE A: PAP SMEAR (SUREPATH) CE Patient Name: MARY CASON : 1975 (Age: 46) Sex: F Institution: [facility] Location: [facility] Date of Collection: 03/18/2022 Date of Reported: 03/24/2022 14:25 Results to: Maribell Malone DO Maribell Malone DO CYTOLOGY ORDERABLES Final Re sult SEE NARRATIVE from Last 3 Months or Most Recently Relevant to Health Maintenance Insurance Educents ADMINISTRATORS Educents ADMINISTRATORS [employer] BENEFITS ADMINISTRATORS Educents ADMINISTRATORS 2[employer] BENEFITS ADMINISTRATORS [employer] BENEFITS ADMINISTRATORS [employer] BENEFITS ADMINISTRATORS [employer] BENEFITS ADMINISTRATORS [employer]ents ADMINISTRATORS Care Teams Seasoning Sprayer Relationship Specialty Start Date End Date Maribell Malone DO [address] [place] [phone] PCP - General Family Medicine 03/14/24 Additional Source Comments The information contained in this document represents components of the legal health record. It is not the complete legal health record.[facility]
--- OUTSIDE RECORDS SUMMARY | 2025-04-23 12:54 | XMS_ITS | Encounter Summary ---
Author Organization [facility] Address [address] [place] [phone] Phone Care Team Providers Care Yard Demurrage Clerk Name Role Phone Maribell Malone DO Primary Care Provider [phone] Encounter Details Date Type Department Care Team (Late st Contact Info) Description 03/26/2024 Procedure Pass OR Admitting Dept - Virtual Department [address] [place] [address] Social History Tobacco Use Types Packs/Day Years [...] as of this encounter Plan of Treatment Not on file documented as of this encounter Visit Diagnoses Not on filedocumented in this encounter Care Teams Yard Demurrage Clerk Relationship Specialty Start Date End Date Maribell Malone DO [address] [place] [phone] [email or web address] PCP - General Family Medicine 03/14/24 documented as of this encounter Additional Source Comments The information contained in this document represents components of the legal health record. It is not the complete legal health record.[facility]
== END 2025-04-23 11:00 | disposition home or self-care (01) ==
LOC: HO.HBS 10:24
PROVIDERS: PCP Family Medicine; Visit Provider Physician Assistant Surgical
DX: E66.3 Overweight (principal); Z68.26 Body mass index [BMI] 26.0-26.9, adult; Z98.890 Other specified postprocedural states; Z98.84 Bariatric surgery status
CPT/HCPCS: 99024